=== PATIENT | male | born 1950 | race Caucasian/White ===

== ENCOUNTER 2017-10-05 06:48 | Emergency (ER) | payer MEDICARE, OTHER, SELFPAY ==
[2017-10-05 06:48] VITALS: BP 156/90; PULSE 78; RESP 16; TEMP 36.9; O2SAT 98; BMI 35.0
--- NOTE | 2017-10-05 07:07 | CT_ITS ---
STUDY: CT ABDOMEN AND PELVIS WITHOUT CONTRAST REASON FOR EXAM: Male, 67 years old. Right flank pain, diarrhea. Prior appendectomy. Hernia repair. RADIATION DOSAGE (If Supplied By Facility): CTDIvol = ( 21.80 ) mGy, DLP = ( 1253.01 ) mGycm TECHNIQUE: Transaxial images were obtained from the dome of the diaphragm to the symphysis pubis without oral contrast, and without intravenous contrast. Sagittal and coronal images were reconstructed. Individualized dose optimization techniques were used for this CT. COMPARISON: None. FINDINGS: The visualized lung bases demonstrate diffuse chronic interstitial thickening. The visualized portions of the heart are within normal limits. There is decreased attenuation of the liver consistent with steatosis. There are multiple gallstones. Normal unenhanced spleen and pancreas. Normal pancreas. Normal bilateral adrenal glands. There is mild cortical atrophy of the right kidney, consistent with chronic medical renal disease. There is a tiny left renal cortical calcification. There is bilateral perinephric stranding of the fat. Neither kidney shows calculi or evidence of hydronephrosis. Normal visualized stomach. Normal small intestine. Moderate amount of retained fecal debris seen in the colon. There is non-visualization of the appendix. Multiple small reactive mesenteric lymph nodes are seen. Normal abdominal aorta. Normal inferior vena cava. Normal retroperitoneum. There is a 1.2 cm long thin calculus seen in the urinary bladder near the right UVJ. The urinary bladder is partially empty. There is mild enlargement of the prostate gland. Multiple tiny punctate prostrate calcifications are seen. There is a small/moderate size umbilical hernia containing fat. There are multilevel moderately advanced degenerative endplate/disc spondylitic changes of the visualized thoracolumbar spine. There is lower thoracic/upper lumbar vertebral wedging. Osteopenia. CT/Abdomen/Pelvis without Cont IMPRESSION: 1. A 1.2 cm long thin calculus is seen in the bladder displaced from the right UVJ. 2. Neither kidney shows calculi or evidence of hydronephrosis. There is bilateral perinephric stranding of the fat. 3. Cholelithiasis. Borderline distended gallbladder. If indicated correlation with right upper quadrant ultrasound is recommended. 4. Mildly enlarged prostrate gland. 5. Small/moderate size umbilical hernia. 6. Moderately advanced multilevel degenerative thoracolumbar spondylosis. Electronically Signed: Stephan Buckley MD at 8:16 EDT Tel , Service support ,
[2017-10-05] MEDS: 0.9% Normal Saline 1,000 ML 150 ML IV (07:17)
--- NOTE | 2017-10-05 07:27 | ED.VISSUMM ---
- ER Visit Summary Date of Service: 10/05/17 Chief Complaint: Right flank pain History of Present Illness: The patient is a 67 M reports right upper quadrant and right lateral upper abdominal pain since 5 PM last evening. Patient states he was mowing the yard on a riding mower when the pain started. He reports some mild nausea and had frequent stools overnight, but denies actual diarrhea. He denies fever or chills. Prior abdominal surgery history includes bilateral inguinal hernias and appendectomy. Patient was started on simvastatin 2 weeks ago. Physical Examination: Blood pressure is 156/90, otherwise vitals normal. Patient sitting upright in bed no acute distress. Head neck examination is grossly unremarkable. Heart is regular rate and rhythm. Lung sounds are clear. Abdomen is soft with minimal tenderness in the right upper quadrant. There is no guarding or rebound. Active bowel sounds are noted throughout. Back examination reveals no CVA tenderness or rash. Test Results: CBC was a white count 12.7 with 78% neutrophils. Chemistry studies unremarkable. LFTs are significant for total bili of 1.30, direct bili 0.39, ALT 78, AST 93. Lipase is normal. Urinalysis is unremarkable. CT flank reveals a 1.2 cm long calculus in the bladder that has been displaced from the right UVJ. There is also evidence of cholelithiasis. Borderline distended gallbladder is noted and ultrasound is recommended. Emergency Department Course and Treatment: Patient was given IV fluids here. Case was discussed with Dr. Ruthreford. He personally reviewed the ultrasound and does not feel that the patient has acute cholecystitis. He spoke with the patient and offered admission for cholecystectomy tomorrow. Patient has a graduation democrat to go to [facility] and wishes to go home. Dr. Rutherford states that we may discharge him with some pain medication. His office will call the patient to schedule outpatient surgery. Treatment Plan: [] Disposition: Discharge Impression: 1. Cholelithiasis 2. Recently passed kidney stone This note was generated with [employer] dictation software. It may contain incorrect words, spelling, and punctuation that were not noted in review of the chart prior to signing ED Disposition - Plan for ED Patient: Chief Complaint: Abd Pain Referrals: Zonia Live MD [Primary Care Provider] -
[2017-10-05 07:38] LABS: Absolute Lymphocyte Count 1.52 X10^3/ul (0.83-4.51); Basophil# 0.01 X10^3/uL; Basophil% 0.1 % (0-1); Eosinophil# 0.05 X10^3/uL; Eosinophils% 0.4 % (0-5); Hematocrit 46.2 % (40-54); Hemoglobin 15.7 g/dl (13.0-16.5); Lymphocyte # 1.52 X10^3/ul (4.0); Lymphocyte % 11.9 % (19-41); Mean Corpuscular Hgb 30.4 pg (27.0-32.0); Mean Corpuscular Volume 89.5 fL (80-94); Mean Platelet Vol. 9.2 fl (6.2-12.0); Monocyte# 1.17 X10^3/uL; Monocyte% 9.2 % (0-10); Neutrophil # 9.95 X10^3/uL (2.7-7.7); Neutrophil % 78.2 % (47-70); Platelet Count 192 K/mm3 (150-450); RBC Distribution Width CV 13.3 % (11.6-14.6); RBC Distribution Width SD 43.4 fl (35.1-43.9); Red Blood Count 5.16 M/mm3 (4.6-6.2); White Blood Count 12.7 K/mm3 (4.4-11.0)
[2017-10-05 07:39] LABS: POSITIVE COUNT NO; POSITIVE DIFFERENTIAL NO; POSITIVE MORPHOLOGY NO
[2017-10-05 07:46] LABS: Red Blood Cells-Urine 0 SEEN /hpf (0-5)
[2017-10-05 07:49] LABS: Color, Urine Yellow (Yellow); Glucose, Dipstick 100 mg/dl (Normal); Ketone-Dipstick 5 mg/dl (Negative); Leukocyte Esterase-Dipstick 25 /ul (Negative); Nitrite-Dipstick Negative (Negative); Occult Blood-Urine 10 /ul (Negative); Protein-Dipstick 30 mg/dl (Negative); Specific Gravity, Urine 1.025 (1.002-1.030); Urine Clarity Sl. Cloudy (Clear); Urine Urobilinogen 1 mg/dl (Normal)
[2017-10-05 07:52] LABS: Urine Bilirubin Dipstick 1 mg/dL (Negative)
[2017-10-05 07:58] LABS: Bacteria 1+ /hpf (None Seen); Mucous, Urine 1+ /hpf (<or=2+); Squamous Epithelial Cells - UA 0-5 SEEN /hpf (0-5); White Blood Cells 0-5 SEEN /hpf (0-5)
[2017-10-05 08:01] LABS: AST(SGOT) 93 U/L (15-37); Alanine Aminotransfer ALT/SGPT 78 U/L (16-61); Albumin, Serum 3.8 g/dL (3.2-5.0); Alkaline Phosphatase 75 U/L (45-117); Anion Gap 9 (5-15); BUN 15 mg/dL (7-18); Bilirubin, Direct 0.39 mg/dL (0.00-0.30); Calcium,Total 8.9 mg/dL (8.5-10.1); Chloride 107 mmol/L (98-107); Creatinine, Serum 1.07 mg/dL (0.70-1.30); EST Glomerular Filtration Rate 73 mL/min (>60); Est Glom Filt Rate - Afr Amer 89 mL/min (>60); Estimated Creatinine Clearance 69.17 ml/min; Globulin 4.4 g/dL (2.2-4.2); Glucose 144 mg/dL (74-106); Lipase 112 U/L (73-393); Potassium 3.7 mmol/L (3.5-5.1); Protein, Total 8.2 g/dL (6.4-8.2); Sodium Level 139 mmol/L (136-145)
--- NOTE | 2017-10-05 08:27 | US_ITS ---
STUDY: ABDOMINAL ULTRASOUND - RIGHT UPPER QUADRANT REASON FOR VISIT: Male, 67 years old. Follow-up of CT findings. TECHNIQUE: Ultrasound evaluation of the right upper quadrant was performed with real-time and static mccloud-scale imaging. TECHNICAL QUALITY: Adequate. COMPARISON: CT of abdomen and pelvis dated October 05, 2017. FINDINGS: Liver: The liver measures 15.9 cm. There is increased echogenicity consistent with fatty infiltration. The bile ducts are within normal limits. There is hepatic color flow. The direction of portal flow is hepatopetal. There is no demonstrated mass lesion. Gallbladder: Normal distended gallbladder. The gallbladder wall measures 2.8 mm. There is a negative sonographic Heck's sign. There is no pericholecystic fluid. There is a solitary echogenic gallstone within the gallbladder. Common Bile Duct (C.B.D.): The common bile duct measures 3.5 mm. Pancreas: There is nonvisualization of the pancreas. Right Kidney: Normal size of the right kidney. The right kidney measures 11.6 x 4.2 x 5.8 cm. Normal renal cortex. The right cortex measures 1.0 cm. There is no demonstrated renal mass or cyst. There is no right hydronephrosis. US/Gallbladder IMPRESSION: 1. Cholelithiasis. 2. Hepatic steatosis. 3. Limited visualization of the left lobe of the liver. 4. Nonvisualization of the pancreas. Electronically Signed: Daxa Su MD at 10:49 EDT , Service support ,
[2017-10-05 09:14] VITALS: BP 148/89; PULSE 87; RESP 14; O2SAT 99
[2017-10-05 10:27] VITALS: BP 135/79; PULSE 60; RESP 16; O2SAT 97
--- NOTE | 2017-10-05 10:41 | ED.DEP ---
ED Disposition - Plan for ED Patient: Disposition: Home or Assisted Living Chief Complaint: Abd Pain Instructions: ED Abdominal Pain Gallstone Poss Prescriptions: Oxycodone [Oxyir] 5 mg PO Q6H PRN PRN 5 Days #14 tablet PRN Reason: Pain Referrals: Zonia Live MD [Primary Care Provider] - Lukasz Goldstein MD [STAFF PHYSICIAN] - Additional Instructions: Dr Goldstein's office will call you to arrange outpatient surgery. Return for worsening symptoms or if any concerns arise.
--- NOTE | 2017-10-05 11:00 | PCM.CONS.GEN ---
Reason for Consult Date of Consultation: 10/05/17 History of Present Illness: The patient is a 67 year old M he denies any significant past medical history other than Hypercholesterolemia. the patient ate biscuits and gravy yesterday approximately noon. At 4:56 PM he noted the onset of right upper quadrant pain radiating through to his back. This is more colicky in nature. It persisted. He presented to [facility] emergency department. He denied nausea, vomiting, fever, chills, or other difficulties. He denied jaundice. A CT scan of the abdomen and pelvis was obtained which demonstrated 2 gallstones and a questionable bladder stone but otherwise no specific abdominal arteries. His white blood cell count was mildly elevated, but his transaminases and bilirubin were normal. The patient then underwent ultrasound of the right upper quadrant, which to my review demonstrated stones but no gallbladder wall thickening. Currently, the patient is nearly pain-free. He states he has a family event with a graduation alliance party [employer] and prefer not to miss that alliance party if possible. Past Medical History Allergies No Known Allergies Allergy (Verified 10/05/17 06:52) Home Medications: Ambulatory Orders Medication Instructions Recorded Cholecalciferol (Vitamin D3) 1,000 unit PO DAILY 10/05/17 [Vitamin D3] Dietary Supplement [Scandishake] 1 tab PO DAILY 10/05/17 Hydraflexin 1 tab PO DAILY 10/05/17 Multivitamin [Multiple Vitamins] 1 each PO DAILY 10/05/17 Oxycodone [Oxyir] 5 mg PO Q6H PRN PRN 5 Days #14 10/05/17 tablet Renaitre 1 tab PO DAILY 10/05/17 Simvastatin 20 mg PO DAILY 10/05/17 True Curcumin 1 tab PO DAILY 10/05/17 Smoking Status: Never smoker Review of Systems Constitutional: Denies: Chills, Fever, Weight Change HEENT: Denies: Head Aches, Sinus Congestion, Sinus Drainage Cardiovascular: Denies: Chest Pain, Palpitations Respiratory: Denies: Cough, Shortness of breath at rest, Sputum production Gastrointestinal: Reports: Abdominal Pain. Denies: Nausea, Vomiting Genitourinary: Denies: Dysuria Musculoskeletal: Denies: Joint Pain, Joint Tenderness Skin: Denies: Rash, Wounds Neurological: Denies: Numbness, Tingling, Focal weakness Psychiatric: Denies: Anxiety, Depression, Homicidal Ideations, Suicidal Ideations Hematologic/ Lymphatic: Denies: Easy Bruising, Easy Bleeding - Physical Exam General: Alert, Oriented x3, Cooperative HEENT: Atraumatic, PERRLA, EOMI, Normocephalic Neck: Supple, No JVD, Negative Carotid Bruits Lungs: Clear to auscultation, Normal air movement Cardiovascular: Regular rate, No murmurs Abdomen: Bowel Sounds Present, Soft, Non Tender - with very minimal right upper quadrant tenderness, no Heck sign Extremities: No edema, Capillary Refill Less than 3 Seconds Skin: No rashes, No breakdown Musculoskeletal: No Tenderness to Palpation of Joints or Extremities Neurological: Cranial nerves II-XII grossly intact Psych/Mental Status: Normal Affect, Appropriate Vital Signs Temp Pulse Resp BP Pulse Ox 98.4 F 60 16 135/79 H 97 10/05/17 06:48 10/05/17 10:27 10/05/17 10:27 10/05/17 10:27 10/05/17 10:27 Oxygen Delivery Method Room Air Weight: 110.8 kg Body Mass Index (BMI) 35.0 Laboratory Tests Past 24 Hrs 10/05/17 10/05/17 10/05/17 06:54 06:54 07:40 WBC 12.7 H RBC 5.16 Hgb 15.7 Hct 46.2 MCV 89.5 MCH 30.4 MCHC 34.0 RDW 13.3 RDW Differential 43.4 Plt Count 192 MPV 9.2 Immature Gran % (Auto) 0.200 Neut % (Auto) 78.2 H Lymph % (Auto) 11.9 L [place] % (Auto) 9.2 Eos % (Auto) 0.4 Baso % (Auto) 0.1 Absolute Neuts (auto) 10.0 H Absolute Lymphs (auto) 1.52 Total Counted Not Reportable Sodium 139 Potassium 3.7 Chloride 107 Carbon Dioxide 23.0 Anion Gap 9 BUN 15 Creatinine 1.07 Estim Creat Clear Calc 69.17 Est GFR (MDRD) Af Amer 89 Est GFR (MDRD) Non-Af 73 BUN/Creatinine Ratio 14.0 Glucose 144 H Calcium 8.9 Total Bilirubin 1.30 H Direct Bilirubin 0.39 H AST 93 H ALT 78 H Alkaline Phosphatase 75 Total Protein 8.2 Albumin 3.8 Globulin 4.4 H Lipase 112 Urine Color Yellow Urine Clarity Sl. Cloudy Urine pH 6.0 Ur Specific [place] 1.025 Urine Protein 30 H Urine Glucose (UA) 100 H Urine Ketones 5 H Urine Occult Blood 10 H Urine Nitrite Negative Urine Bilirubin 1 H Urine Urobilinogen 1 H Ur Leukocyte Esterase 25 H Urine RBC 0 SEEN Urine WBC 0-5 SEEN Ur Squamous Epith Cells 0-5 SEEN Urine Bacteria 1+ Urine Mucus 1+ Assessment/Plan symptomatic cholelithiasis-pain, resolving. I'm comfortable with the patient and discharge summaries Department. If his symptoms return. She'll return to our department immediately. Otherwise, we will plan for outpatient cholecystectomy with intraoperative the next 2-3 weeks. The patient stands, the risks, benefits, complications, and possible alternatives and consents to the procedure.
--- NOTE | 2017-10-05 11:03 | CON.PCM_ITS ---
Reason for Consult Date of Consultation: 10/05/17 History of Present Illness: The patient is a 67 year old M he denies any significant past medical history other than Hypercholesterolemia. the patient ate biscuits and gravy yesterday approximately noon. At 4:56 PM he noted the onset of right upper quadrant pain radiating through to his back. This is more colicky in nature. It persisted. He presented to [facility] emergency department. He denied nausea, vomiting, fever, chills, or other difficulties. He denied jaundice. A CT scan of the abdomen and pelvis was obtained which demonstrated 2 gallstones and a questionable bladder stone but otherwise no specific abdominal arteries. His white blood cell count was mildly elevated, but his transaminases and bilirubin were normal. The patient then underwent ultrasound of the right upper quadrant, which to my review demonstrated stones but no gallbladder wall thickening. Currently, the patient is nearly pain-free. He states he has a family event with a graduation democrat [employer] and prefer not to miss that democrat if possible. Past Medical History Allergies No Known Allergies Allergy (Verified 10/05/17 06:52) Home Medications: Ambulatory Orders Medication Instructions Recorded Cholecalciferol (Vitamin D3) 1,000 unit PO DAILY 10/05/17 [Vitamin D3] Dietary Supplement [Scandishake] 1 tab PO DAILY 10/05/17 Hydraflexin 1 tab PO DAILY 10/05/17 Multivitamin [Multiple Vitamins] 1 each PO DAILY 10/05/17 Oxycodone [Oxyir] 5 mg PO Q6H PRN PRN 5 Days #14 10/05/17 tablet Renaitre 1 tab PO DAILY 10/05/17 Simvastatin 20 mg PO DAILY 10/05/17 True Curcumin 1 tab PO DAILY 10/05/17 Smoking Status: Never smoker Review of Systems Constitutional: Denies: Chills, Fever, Weight Change HEENT: Denies: Head Aches, Sinus Congestion, Sinus Drainage Cardiovascular: Denies: Chest Pain, Palpitations Respiratory: Denies: Cough, Shortness of breath at rest, Sputum production Gastrointestinal: Reports: Abdominal Pain. Denies: Nausea, Vomiting Genitourinary: Denies: Dysuria Musculoskeletal: Denies: Joint Pain, Joint Tenderness Skin: Denies: Rash, Wounds Neurological: Denies: Numbness, Tingling, Focal weakness Psychiatric: Denies: Anxiety, Depression, Homicidal Ideations, Suicidal Ideations Hematologic/ Lymphatic: Denies: Easy Bruising, Easy Bleeding - Physical Exam General: Alert, Oriented x3, Cooperative HEENT: Atraumatic, PERRLA, EOMI, Normocephalic Neck: Supple, No JVD, Negative Carotid Bruits Lungs: Clear to auscultation, Normal air movement Cardiovascular: Regular rate, No murmurs Abdomen: Bowel Sounds Present, Soft, Non Tender - with very minimal right upper quadrant tenderness, no Heck sign Extremities: No edema, Capillary Refill Less than 3 Seconds Skin: No rashes, No breakdown Musculoskeletal: No Tenderness to Palpation of Joints or Extremities Neurological: Cranial nerves II-XII grossly intact Psych/Mental Status: Normal Affect, Appropriate Vital Signs Temp Pulse Resp BP Pulse Ox 98.4 F 60 16 135/79 H 97 10/05/17 06:48 10/05/17 10:27 10/05/17 10:27 10/05/17 10:27 10/05/17 10:27 Oxygen Delivery Method Room Air Weight: 110.8 kg Body Mass Index (BMI) 35.0 Laboratory Tests Past 24 Hrs 10/05/17 10/05/17 10/05/17 06:54 06:54 07:40 WBC 12.7 H RBC 5.16 Hgb 15.7 Hct 46.2 MCV 89.5 MCH 30.4 MCHC 34.0 RDW 13.3 RDW Differential 43.4 Plt Count 192 MPV 9.2 Immature Gran % (Auto) 0.200 Neut % (Auto) 78.2 H Lymph % (Auto) 11.9 L [place] % (Auto) 9.2 Eos % (Auto) 0.4 Baso % (Auto) 0.1 Absolute Neuts (auto) 10.0 H Absolute Lymphs (auto) 1.52 Total Counted Not Reportable Sodium 139 Potassium 3.7 Chloride 107 Carbon Dioxide 23.0 Anion Gap 9 BUN 15 Creatinine 1.07 Estim Creat Clear Calc 69.17 Est GFR (MDRD) Af Amer 89 Est GFR (MDRD) Non-Af 73 BUN/Creatinine Ratio 14.0 Glucose 144 H Calcium 8.9 Total Bilirubin 1.30 H Direct Bilirubin 0.39 H AST 93 H ALT 78 H Alkaline Phosphatase 75 Total Protein 8.2 Albumin 3.8 Globulin 4.4 H Lipase 112 Urine Color Yellow Urine Clarity Sl. Cloudy Urine pH 6.0 Ur Specific [place] 1.025 Urine Protein 30 H Urine Glucose (UA) 100 H Urine Ketones 5 H Urine Occult Blood 10 H Urine Nitrite Negative Urine Bilirubin 1 H Urine Urobilinogen 1 H Ur Leukocyte Esterase 25 H Urine RBC 0 SEEN Urine WBC 0-5 SEEN Ur Squamous Epith Cells 0-5 SEEN Urine Bacteria 1+ Urine Mucus 1+ Assessment/Plan symptomatic cholelithiasis-pain, resolving. I'm comfortable with the patient and discharge summaries Department. If his symptoms return. She'll return to our department immediately. Otherwise, we will plan for outpatient cholecystectomy with intraoperative the next 2-3 weeks. The patient stands, the risks, benefits, complications, and possible alternatives and consents to the procedure.
[2017-10-05 11:13] VITALS: BP 138/79; PULSE 75; RESP 16; O2SAT 99
== END 2017-10-05 11:15 | disposition home or self-care (01) ==
PROVIDERS: Emergency Provider Emergency Medicine; Family Provider Internal Medicine; PCP Internal Medicine
DX: K80.20 Calculus of gallbladder without cholecystitis without obstruction (principal); N21.0 Calculus in bladder; E78.00 Pure hypercholesterolemia, unspecified; Z79.899 Other long term (current) drug therapy
CPT/HCPCS: 74176; 76705; 80048; 80076; 81001; 83690; 85025; 96360; 96361; 99284; J7030; A4216

== ENCOUNTER 2018-01-28 15:22 | Inpatient (IN) | payer MEDICARE, OTHER, SELFPAY ==
[2018-01-28] VITALS (15 sets, daily range): BP systolic 116–140; BP diastolic 69–89; PULSE 67–93; RESP 14–22; TEMP 36.8–37.2; O2SAT 93–98; BMI 33.7; BMI 34.0
--- NOTE | 2018-01-28 16:47 | EKG12_ITS ---
Test Reason : GEN ILLNESS Blood Pressure : / mmHG Vent. Rate : 074 BPM Atrial Rate : 074 BPM P-R Int : 160 ms QRS Dur : 118 ms QT Int : 450 ms P-R-T Axes : 047 -48 029 degrees QTc Int : 499 ms Normal sinus rhythm Incomplete right bundle branch block Left anterior fascicular block Prolonged QT Abnormal ECG Confirmed by BEN VILLAGRAN, ASHLEY ([id number]), food expeditor JUN JETT ([id number]) on 01/29/2018 1:38:19 PM Referred By: SLIME Confirmed By:ASHLEY CONTRERAS MD
--- NOTE | 2018-01-28 16:53 | NURSING ---
NO OLD EKGS
--- NOTE | 2018-01-28 17:06 | US_ITS ---
STUDY: VENOUS DOPPLER ULTRASOUND - BILATERAL LOWER EXTREMITIES REASON FOR EXAM: Male, 67 years old. Pain and swelling TECHNIQUE: Ultrasound evaluation of the deep vein system to include waters-scale imaging and compression was performed. Waters-scale imaging and Doppler sonographic evaluation, including duplex spectral analysis and qualitative color flow sonography, was performed. COMPARISON: None. FINDINGS: RIGHT LEG Common Femoral Vein: Normal compression, spontaneity and augmentation. Normal color Doppler. Common Femoral Vein/Greater Saphenous Junction: Normal compression, spontaneity and augmentation. Normal color Doppler. Superficial Femoral Proximal: Normal compression, spontaneity and augmentation. Normal color Doppler. Superficial Femoral Middle: Normal compression, spontaneity and augmentation. Normal color Doppler. Superficial Femoral Distal: Normal compression, spontaneity and augmentation. Normal color Doppler. Popliteal Vein: Normal compression, spontaneity and augmentation. Normal color Doppler. Posterior Tibial Vein: Normal compression, spontaneity and augmentation. Normal color Doppler. Peroneal Vein: Normal compression, spontaneity and augmentation. Normal color Doppler. The visualized soft tissues are unremarkable. LEFT LEG Common Femoral Vein: Normal compression, spontaneity and augmentation. Normal color Doppler. Common Femoral Vein/Greater Saphenous Junction: Normal compression, spontaneity and augmentation. Normal color Doppler. Superficial Femoral Proximal: Occlusive thrombus Superficial Femoral Middle: Occlusive thrombus Superficial Femoral Distal: Occlusive thrombus Popliteal Vein: Occlusive thrombus Posterior Tibial Vein: Occlusive thrombus Peroneal Vein: Occlusive thrombus The visualized soft tissues are unremarkable. US/Venous Duplex Imag/Alexandru Extrem IMPRESSION: No evidence of deep venous thrombosis in the right lower extremity. Occlusive thrombus in the left femoral vein, popliteal vein, posterior tibial vein and peroneal vein. N.B. : The above information has been verbally conveyed by Nawaf Liriano to Renata Salmeron MD, on 01/28/2018 21:24:11 (ET). Electronically Signed: Nawaf Liriano, at 18:54 EDT Tel , Service support ,
[2018-01-28] MEDS: 0.9% Normal Saline 1,000 ML 999 ML IV (17:19)
--- NOTE | 2018-01-28 17:20 | RAD_ITS ---
STUDY: X-RAY CHEST REASON FOR EXAM: Male, 67 years old. Cough TECHNIQUE: Frontal and lateral views COMPARISON: None. FINDINGS: The lungs are expanded. Mild interstitial prominence. Normal size heart. Normal mediastinum and axel. Normal visualized pulmonary arteries. Normal visualized aortic arch and descending thoracic aorta. Mild degenerative changes of the visualized thoracic spine. Old right rib fractures. There is no demonstrated abnormality of the visualized soft tissue structures of the upper abdomen. RAD/Chest PA and Lateral IMPRESSION: Pulmonary interstitial prominence bilaterally. Electronically Signed: Antelmo Lowe DO at 18:09 EDT Tel [phone], Service support ,
[2018-01-28 17:27] LABS: Absolute Lymphocyte Count 1.63 X10^3/ul (0.83-4.51); Absolute Neutrophil Count 5.8 X10^3/uL (2.0-7.7); Basophil# 0.02 X10^3/uL; Basophil% 0.2 % (0-1); Eosinophil# 0.13 X10^3/uL; Eosinophils% 1.6 % (0-5); Hematocrit 44.1 % (40-54); Hemoglobin 14.8 g/dl (13.0-16.5); Lymphocyte # 1.63 X10^3/ul (4.0); Lymphocyte % 19.6 % (19-41); Mean Corp Hgb Conc 33.6 g/gl (32-36); Mean Corpuscular Volume 89.3 fL (80-94); Mean Platelet Vol. 9.1 fl (6.2-12.0); Monocyte# 0.75 X10^3/uL; Neutrophil # 5.78 X10^3/uL (2.7-7.7); Neutrophil % 69.5 % (47-70); POSITIVE COUNT NO; POSITIVE DIFFERENTIAL NO; POSITIVE MORPHOLOGY NO; Platelet Count 193 K/mm3 (150-450); RBC Distribution Width SD 42.3 fl (35.1-43.9); Red Blood Count 4.94 M/mm3 (4.6-6.2); White Blood Count 8.3 K/mm3 (4.4-11.0)
[2018-01-28 17:43] LABS: ALB/GLOB Ratio 0.8 RATIO (0.9-2.4); AST(SGOT) 40 U/L (15-37); Alanine Aminotransfer ALT/SGPT 33 U/L (16-61); Albumin, Serum 3.5 g/dL (3.2-5.0); Alkaline Phosphatase 86 U/L (45-117); Anion Gap 11 (5-15); BUN 20 mg/dL (7-18); BUN/Creat Ratio 17.1 RATIO (10-20); Calcium,Total 8.8 mg/dL (8.5-10.1); Chloride 105 mmol/L (98-107); Creatinine, Serum 1.17 mg/dL (0.70-1.30); EST Glomerular Filtration Rate 66 mL/min (>60); Est Glom Filt Rate - Afr Amer 80 mL/min (>60); Estimated Creatinine Clearance 63.26 ml/min; Globulin 4.6 g/dL (2.2-4.2); Glucose 104 mg/dL (74-106); Potassium 3.7 mmol/L (3.5-5.1); Protein, Total 8.1 g/dL (6.4-8.2); Sodium Level 139 mmol/L (136-145)
[2018-01-28 17:55] LABS: D-Dimer Quantitative (DVT/PE) 6.37 FEU/ug/m (0.27-0.49)
--- NOTE | 2018-01-28 17:57 | CT_ITS ---
STUDY: CTA CHEST REASON FOR EXAM: Male, 67 years old. Elevated d-dimer. RADIATION DOSAGE (If Supplied By Facility): CTDIvol = ( 16.71 ) mGy, DLP = ( 684.33 ) mGycm TECHNIQUE: The examination was performed with the intravenous administration of 100ML ml of Isovue 370 contrast material. Post-processing of the angiographic images was performed, with multiplanar reformation and 3D reconstruction. Individualized dose optimization techniques were used for this CT. COMPARISON: None. FINDINGS: There are large central pulmonary emboli in the distal right main and distal left main pulmonary emboli which extend into the segmental and subsegmental branches of all lobes of both lungs. The heart and pericardium are within normal limits. There is no evidence of thoracic aortic aneurysm or dissection. There is no thoracic lymphadenopathy. There are scattered areas of subsegmental atelectasis noted in the lungs. There are no focal infiltrates. There are no pleural effusions. There is no pneumothorax. Images through the upper abdomen demonstrate no significant abnormality. There are old, healed right-sided rib fractures. CT/CTA Chest W/WO Contrast IMPRESSION: Large central pulmonary emboli in the distal right main and distal left main pulmonary emboli which extend into the segmental and subsegmental branches of all lobes of both lungs. N.B. : The above information has been verbally conveyed by Nawaf Liriano to Renata Salmeron on 01/28/2018 19:14:42 (ET). Electronically Signed: Nawaf Liriano, at 19:10 EDT Tel , Service support ,
[2018-01-28 18:01] LABS: Lactic Acid 1.5 mmol/L (0.4-2.0)
[2018-01-28 19:22] LABS: Partial Thromboplast Time 29.1 Seconds (24.1-36.2)
[2018-01-28] MEDS: Heparin Injection (Vial) 5,000 UNIT/ML VIAL 8000 UNIT IV (19:25)
[2018-01-28] MEDS: HEPARIN/D5w 25,000 UNITS 25,000 UNITS/250 ML IV.SOLN. 15 UNITS IV (19:25)
--- NOTE | 2018-01-28 19:25 | HP.PCM_ITS ---
Problem List (1) Bilateral pulmonary embolism Status: Acute (2) Left leg DVT Status: Acute History of Present Illness Date of Admission: 01/28/18 Chief Complaint: Diaphoresis x 1 day. 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 Patient reported that about 5 days ago he noticed that his left leg was warm. The next day he noticed that his left leg had swollen and he began to have some shortness of breath with mild exertion; and malaise. He reports left leg pain of 1 out of 10. Also he reports that about 2 weeks ago he felt dizzy. At the emergency department Doppler ultrasound was remarkable for left leg DVT; and CTA was remarkable for large central pulmonary embolism in the distal right main and distal left main pulmonary emboli with with extension into the segmental and subsegmental branches of all lobes of both lungs. Patient was started on heparin drip and forgeman helper was consulted from the emergency department. Patient reports that she has about 3 sisters who have emboli. He denies any long distance travel recently. He denies any recent surgery his last surgery was 7-8 months ago where he had his gallbladder taken out. He denies any recent immobilization. Bilateral lung PE and left leg DVT Started on heparin drip at emergency department; continued. Echocardiogram ordered. Because of patient family history of DVT and because this is an unprovoked DVT upon discharge recommend patient following up with hematology for further management/testing. Home ibuprofen as needed continued. Hyperlipidemia Simvastatin and CoQ10 continued Weight loss Management Patient recently taking medication for weight loss. Continue outpatient. DVT prophylaxis Not indicated in the setting of patient with active PE and DVT and on therapeutic anticoagulation with heparin. Past Medical History Medical History: Medical History (Last Updated 01/28/18 @ 19:57 by Barrington Estrada MD) Hyperlipidemia E78.5 Prediabetes R73.03 Allergies No Known Allergies Allergy (Verified 10/05/17 06:52) Home Medications: Ambulatory Orders Medication Instructions Recorded Simvastatin 20 mg PO QHS 10/05/17 Ibuprofen 200 mg PO PRN PRN 01/28/18 Lipozene 1,500 mg PO DAILY 01/28/18 Metaboup Plus 1 tab PO DAILY 01/28/18 Ubidecarenone/Vit E/Vit E Mix 1 each PO DAILY 01/28/18 [Co-Enzyme Q10 100 mg Softgel] Surgical History: cholecystectomy Psychiatric History: No pertinent psych hx Lives: Alone Smoking Status: Never smoker Alcohol: Occasional - *Family History Sibling History Items: - - Clots in multiple sisters requiring anti-coagulation Review of Systems Constitutional: Reports: Malaise Eyes: Denies: Blurred vision HEENT: Denies: Difficulty Hearing Cardiovascular: Reports: Chest Pain Respiratory: Reports: Cough, Shortness of Breath Gastrointestinal: Denies: Abdominal Pain, Nausea, Vomiting Genitourinary: Denies: Dysuria Musculoskeletal: Denies: Joint Pain, Joint Tenderness Skin: Denies: Rash, Wounds Neurological: Denies: Numbness, Tingling, Focal weakness Psychiatric: Denies: Anxiety, Depression, Homicidal Ideations, Suicidal Ideations Hematologic/ Lymphatic: Denies: Easy Bruising, Easy Bleeding VTE Information - Inpt Only VTE Present on Admission: Yes VTE Mechan Device Prophylaxis: None VTE Pharm Prophylaxis ordered?: No Reason prophylaxis not ordered:: Treatment Not Indicated - Started on heparin drip for DVT and PE. Patient Problems: Active and Suspected Problems (Last Updated 01/28/18 @ 19:57 by Barrington Estrada MD) Bilateral pulmonary embolism (Acute) Left leg DVT (Acute) - Physical Exam General: Alert, Oriented x3, Cooperative HEENT: Atraumatic, PERRLA, EOMI, Normocephalic Neck: Supple, No JVD, Negative Carotid Bruits Lungs: Diminished Cardiovascular: - - Diminished heart sounds likely due to body habitus. Abdomen: Bowel Sounds Present, Soft, Non Tender Extremities: No edema, Capillary Refill Less than 3 Seconds Skin: No rashes, No breakdown Musculoskeletal: - - Left leg is swollen and tender. Lymphatic: No Cervical, Supraclavicular, or Inguinal Adenopathy Neurological: Cranial nerves II-XII grossly intact Psych/Mental Status: Normal Affect Vital Signs Temp Pulse Resp BP Pulse Ox 98.2 F 75 14 140/83 H 96 01/28/18 15:24 01/28/18 17:30 01/28/18 17:30 01/28/18 17:30 01/28/18 17:30 Oxygen Delivery Method Room Air Weight: 106.594 kg Body Mass Index (BMI) 33.7 Laboratory Tests Past 24 Hrs 01/28/18 01/28/18 01/28/18 17:09 17:09 17:09 WBC 8.3 RBC 4.94 Hgb 14.8 Hct 44.1 MCV 89.3 MCH 30.0 MCHC 33.6 RDW 13.0 RDW Differential 42.3 Plt Count 193 MPV 9.1 Immature Gran % (Auto) 0.100 Neut % (Auto) 69.5 Lymph % (Auto) 19.6 [place] % (Auto) 9.0 Eos % (Auto) 1.6 Baso % (Auto) 0.2 Absolute Neuts (auto) 5.8 Absolute Lymphs (auto) 1.63 Total Counted Not Reportable APTT D-Dimer Quant (PE/DVT) 6.37 H* Sodium Potassium Chloride Carbon Dioxide Anion Gap BUN Creatinine Estim Creat Clear Calc Est GFR (MDRD) Af Amer Est GFR (MDRD) Non-Af BUN/Creatinine Ratio Glucose Lactic Acid 1.5 Calcium Total Bilirubin AST ALT Alkaline Phosphatase Troponin I B-Natriuretic Peptide Total Protein Albumin Globulin Albumin/Globulin Ratio 01/28/18 01/28/1818 17:09 17:09 17:09 WBC RBC Hgb Hct MCV MCH MCHC RDW RDW Differential Plt Count MPV Immature Gran % (Auto) Neut % (Auto) Lymph % (Auto) [place] % (Auto) Eos % (Auto) Baso % (Auto) Absolute Neuts (auto) Absolute Lymphs (auto) Total Counted APTT Pending D-Dimer Quant (PE/DVT) Sodium 139 Potassium 3.7 Chloride 105 Carbon Dioxide 23.0 Anion Gap 11 BUN 20 H Creatinine 1.17 Estim Creat Clear Calc 63.26 Est GFR (MDRD) Af Amer 80 Est GFR (MDRD) Non-Af 66 BUN/Creatinine Ratio 17.1 Glucose 104 Lactic Acid Calcium 8.8 Total Bilirubin 0.90 AST 40 H ALT 33 Alkaline Phosphatase 86 Troponin I 0.499 H B-Natriuretic Peptide Pending Total Protein 8.1 Albumin 3.5 Globulin 4.6 H Albumin/Globulin Ratio 0.8 L Assessment/Plan All Active Problems (Last Updated 01/28/18 @ 19:57 by Barrington Estrada MD) Bilateral pulmonary embolism (Acute) Left leg DVT (Acute) The patient is a 67 year old M with a significant history of prediabetes and hyperlipidemia who presented with diaphoresis, left leg swelling, cough and shortness of breath; also with family dependence review confirms interstitial prominence of blood clots was found to have bilateral PE and left leg DVT. Bilateral lung PE and left leg DVT D-dimer elevated and troponin elevated. No need to trend troponin in the setting of clear cause of elevation; and on heparin. Patient is hemodynamically stable. Chest x-ray independently reviewed confirms interstitial prominence CTA chest independently reviewed a confirms multiple PE. Doppler ultrasound of left leg independently reviewed confirms DVT Admitted to the intensive care unit Started on heparin drip at emergency department; continued. Echocardiogram ordered. Because of patient family history of DVT and because this is an unprovoked DVT upon discharge recommend patient follow up with hematology for further management/testing. Home ibuprofen as needed continued. CBC and BMP in a.m. Hyperlipidemia Simvastatin and CoQ10 continued Weight loss Management Patient recently taking medication for weight loss. Continue outpatient. Elevated liver enzymes Mild Likely due to outpatient medication taking for weight loss. Patient to follow up outpatient. DVT prophylaxis Not indicated in the setting of patient with active PE and DVT and on therapeutic anticoagulation with heparin. Code Visit Inpatient E&M: 38466 Init Hosp L3
[2018-01-28 19:39] LABS: BNP,B-Type NATRIURETIC PEPTIDE 109.5 pg/mL (0-100)
--- NOTE | 2018-01-28 20:40 | ECHOCS_ITS ---
Reason For Study: Emboli Procedure This was a 2D Doppler, Color Flow transthoracic echocardiogram. The study was technically difficult. Contrast injection was performed. Exam performed portable in ICU/CCU. Left Ventricle Mild concentric left ventricular hypertrophy. Based upon the 2D echocardiographic and contrast enhanced images obtained there appears to be grossly normal left ventricular size, wall motion, and systolic function. The estimated ejection fraction is 55 %. Unable to assess diastolic dysfunction. Right Ventricle Normal RV size. Normal systolic function. Atria Normal left atrium. Normal right atrium. No doppler evidence for ASD. Mitral Valve There is no mitral annular calcification. Normal mitral valve. Trivial mitral valve insufficiency. Tricuspid Valve Trivial tricuspid valve insufficiency. Unable to estimate RV systolic pressure/pulmonary artery pressure due to technically difficult study. Aortic Valve Trisinus/trileaflet aortic valve. Mild focal aortic valve calcification. Pulmonic Valve The pulmonic valve is not well visualized. Great Vessels Normal sized aortic root. Pericardium/Pleural No pericardial effusion. Medication Diluted definity 3ml given slow IV push to enhance endocardial definition. MMode/2D Measurements & Calculations LVIDd: 4.7 cm IVSd: 1.5 cm Ao root diam: 3.3 cm LVIDs: 3.3 cm LVPWd: 1.4 cm LA dimension: 3.7 cm FS: 29.6 % LAV(MOD-sp4): 58.7 ml LA A4 area: 19.8 cm2 RA A4 area: 15.5 cm2 Time Measurements MV dec time: 0.27 sec Doppler Measurements & Calculations MV E max tay: 60.7 cm/sec Lat Peak E' Tay: 7.3 cm/sec Med Peak E' Tay: 8.3 cm/sec MV A max tay: 87.8 cm/sec E/E' lat: 8.3 E/E' med: 7.3 MV E/A: 0.69 MV V2 max: 94.4 cm/sec MV P1/2t max tay: 73.2 cm/sec Ao V2 max: 136.8 cm/sec MV max P.6 mmHg MV P1/2t: 100.7 msec Ao max P.5 mmHg MV V2 mean: 53.2 cm/sec MV dec slope: 212.9 cm/sec2 Ao V2 mean: 95.5 cm/sec MV mean P.3 mmHg MVA(P1/2t): 2.2 cm2 Ao mean P.1 mmHg MV V2 VTI: 24.9 cm Ao V2 VTI: 25.9 cm LV V1 max: 123.2 cm/sec PA V2 max: 95.3 cm/sec LV V1 max P.1 mmHg LV V1 mean P.1 mmHg LV V1 mean: 79.8 cm/sec LV V1 VTI: 25.2 cm Interpretation Summary The study was technically difficult. Contrast injection was performed. Based upon the 2D echocardiographic and contrast enhanced images obtained there appears to be grossly normal left ventricular size, wall motion, and systolic function. The estimated ejection fraction is 55 %. Mild concentric left ventricular hypertrophy. Trivial mitral valve insufficiency. Trivial tricuspid valve insufficiency. Mild focal aortic valve calcification. Unable to estimate RV systolic pressure/pulmonary artery pressure due to technically difficult study. Unable to assess diastolic dysfunction. Ordering Physician: Barrington Estrada Referring Physician: Zonia Live Performed By: Marlon Birmingham RCS
[2018-01-28 22:15] LABS: Allen Test POS; Base Excess -1 mmol/L (-2 to +2); Bicarbonate 22.6 mmol/L (22-26); Blood Gas Specimen Type ART; O2 Delivery Device Room Air; PO2 57 mmHG (75-100); SITE R Radial; SO2 91 % (95-99); Time Given 2215; Total Carbon Dioxide 23 mmol/L; pCO2 30.8 mmHg (35-45); pH 7.47 (7.35-7.45)
[2018-01-28] MEDS: Atorvastatin Calcium 10 MG Tablet PO (22:35)
[2018-01-29] VITALS (22 sets, daily range): BP systolic 110–134; BP diastolic 63–87; PULSE 57–87; RESP 12–20; TEMP 36.1–37.1; O2SAT 92–98
--- NOTE | 2018-01-29 01:13 | ED.VISSUMM ---
- ER Visit Summary Date of Service: 01/29/18 Chief Complaint: Do not feel well History of Present Illness: The patient is a 67 M who presents for not feeling well for the last week. Patient states this past weekend he noted his left lower extremity became edematous below the knee. He has had dyspnea on exertion and a cough for 2 weeks. 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 He denies fever, chest pain, nausea or vomiting, diarrhea, back pain or other complaints. No history of DVT or PE. He did start taking Lipozene and metaboUP PLUS for weight loss that he ordered from a commercial. He has history of hypercholesterolemia and cholecystectomy. Does not use tobacco. No recent travel or surgeries.. Physical Examination: Vital signs: afebrile, hemodynamically stable, 83% on room air General: well nourished, well developed, in no distress Skin: warm, dry, no rash, no pallor HEENT: normocephalic and atraumatic; PERRL, EOMI, moist mucous membranes Cardiovascular: regular rate and rhythm without murmurs, left lower extremity edema and tenderness below the knee, increased warmth, 2+ pulses all distal extremities Respiratory: No increased work of breathing, lungs are clear to auscultation bilaterally, no rales, rhonchi or wheezing Abdominal: Abdomen is soft, nontender with normoactive bowel sounds, no guarding or rebound, no masses MSK: Moves all extremities, no deformities, normal strength Neuro: Awake and alert, oriented ?4. No facial droop, sensation and motor function intact and symmetric Test Results: Abnormal Lab Results 01/28/18 01/28/18 01/28/18 17:09 17:09 17:09 WBC 8.3 RBC 4.94 Hgb 14.8 Hct 44.1 MCV 89.3 MCH 30.0 MCHC 33.6 RDW 13.0 RDW Differential 42.3 Plt Count 193 MPV 9.1 Immature Gran % (Auto) 0.100 Neut % (Auto) 69.5 Lymph % (Auto) 19.6 [place] % (Auto) 9.0 Eos % (Auto) 1.6 Baso % (Auto) 0.2 Absolute Neuts (auto) 5.8 Absolute Lymphs (auto) 1.63 Total Counted Not Reportable APTT D-Dimer Quant (PE/DVT) 6.37 H* Specimen Type Sample Site pH Bicarbonate Actual POC Total CO2 Base Excess O2 Saturation ABG pCO2 ABG pO2 Ken Test O2 Delivery Device Blood Gas Notified Whom Blood Gas Notified Time Sodium Potassium Chloride Carbon Dioxide Anion Gap BUN Creatinine Estim Creat Clear Calc Est GFR (MDRD) Af Amer Est GFR (MDRD) Non-Af BUN/Creatinine Ratio Glucose Lactic Acid 1.5 Calcium Total Bilirubin AST ALT Alkaline Phosphatase Troponin I B-Natriuretic Peptide Total Protein Albumin Globulin Albumin/Globulin Ratio 01/28/18 01/28/18 01/28/18 17:09 17:09 17:09 WBC RBC Hgb Hct MCV MCH MCHC RDW RDW Differential Plt Count MPV Immature Gran % (Auto) Neut % (Auto) Lymph % (Auto) [place] % (Auto) Eos % (Auto) Baso % (Auto) Absolute Neuts (auto) Absolute Lymphs (auto) Total Counted APTT 29.1 D-Dimer Quant (PE/DVT) Specimen Type Sample Site pH Bicarbonate Actual POC Total CO2 Base Excess O2 Saturation ABG pCO2 ABG pO2 Ken Test O2 Delivery Device Blood Gas Notified Whom Blood Gas Notified Time Sodium 139 Potassium 3.7 Chloride 105 Carbon Dioxide 23.0 Anion Gap 11 BUN 20 H Creatinine 1.17 Estim Creat Clear Calc 63.26 Est GFR (MDRD) Af Amer 80 Est GFR (MDRD) Non-Af 66 BUN/Creatinine Ratio 17.1 Glucose 104 Lactic Acid Calcium 8.8 Total Bilirubin 0.90 AST 40 H ALT 33 Alkaline Phosphatase 86 Troponin I 0.499 H B-Natriuretic Peptide 109.5 H Total Protein 8.1 Albumin 3.5 Globulin 4.6 H Albumin/Globulin Ratio 0.8 L Clinical Impression(s) from Imaging Studies Venous Duplex 01/28/18 17:06 IMPRESSION: No evidence of deep venous thrombosis in the right lower extremity. Occlusive thrombus in the left femoral vein, popliteal vein, posterior tibial vein and peroneal vein. N.B. : The above information has been verbally conveyed by Nawaf Liriano to Renata Salmeron MD, on 01/28/2018 21:24:11 (ET). Electronically Signed: Nawaf Liriano, at 18:54 EDT Tel , Service support , Chest X-Ray 01/28/18 17:20 IMPRESSION: Pulmonary interstitial prominence bilaterally. Electronically Signed: Antelmo Lowe, DO at 18:09 EDT Tel [phone], Service support , Chest CTA 01/28/18 17:57 IMPRESSION: Large central pulmonary emboli in the distal right main and distal left main pulmonary emboli which extend into the segmental and subsegmental branches of all lobes of both lungs. N.B. : The above information has been verbally conveyed by Nawaf Liriano to Renata Salmeron on 01/28/2018 19:14:42 (ET). Electronically Signed: Nawaf Liriano, at 19:10 EDT Tel , Service support , Emergency Department Course and Treatment: Patient presents with vague complaints, including shortness of breath on exertion, left lower extremity swelling and sweating with daily tasks. Patient is 93% on room air and given his complaint of shortness of breath that is new, PE is on the differential. Because of the lower extremity edema and tenderness/warmth, DVT is concerning. Ultrasound was performed of the left lower extremity did show a DVT from the proximal femoral vein and distal. Chest x-ray showed no infiltrates or effusions. EKG showed a sinus rhythm with borderline right bundle branch block. No ischemic changes. Labs were remarkable for ADD dimer of 6.7. This was obtained prior to results of the ultrasound. Troponin was elevated at 0.49. CTA of the chest was obtained given the elevated d-dimer and patient's presentation that makes PE high on the differential. It was positive for large PE burden. There was no sign of right heart strain. patient was started on a heparin drip and discussed with Dr. Valles for admission to the ICU. Patient was then discussed with the hospitalist and admitted. Critical Care Time: 45 minutes independent of any separately billable procedure time for initial evaluation, coordination of care, reevaluations, interpretation of EKG, imaging, lab work, discussion with home therapy teacher and hospitalist, documentation. Treatment Plan: [] Disposition: [] Impression: Bilateral main pulmonary artery pulmonary emboli, multilobar pulmonary emboli, left lower extremity DVT This note was generated with [employer] dictation software. It may contain incorrect words, spelling, and punctuation that were not noted in review of the chart prior to signing ED Disposition - Plan for ED Patient: Chief Complaint: General Illness
--- NOTE | 2018-01-29 01:19 | ED.DCSUM_ITS ---
- ER Visit Summary Date of Service: 01/29/18 Chief Complaint: Do not feel well History of Present Illness: The patient is a 67 M who presents for not feeling well for the last week. Patient states this past weekend he noted his left lower extremity became edematous below the knee. He has had dyspnea on exertion and a cough for 2 weeks. 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 He denies fever, chest pain, nausea or vomiting, diarrhea, back pain or other complaints. No history of DVT or PE. He did start taking Lipozene and metaboUP PLUS for weight loss that he ordered from a commercial. He has history of hypercholesterolemia and cholecystectomy. Does not use tobacco. No recent travel or surgeries.. Physical Examination: Vital signs: afebrile, hemodynamically stable, 83% on room air General: well nourished, well developed, in no distress Skin: warm, dry, no rash, no pallor HEENT: normocephalic and atraumatic; PERRL, EOMI, moist mucous membranes Cardiovascular: regular rate and rhythm without murmurs, left lower extremity edema and tenderness below the knee, increased warmth, 2+ pulses all distal extremities Respiratory: No increased work of breathing, lungs are clear to auscultation bilaterally, no rales, rhonchi or wheezing Abdominal: Abdomen is soft, nontender with normoactive bowel sounds, no guarding or rebound, no masses MSK: Moves all extremities, no deformities, normal strength Neuro: Awake and alert, oriented ?4. No facial droop, sensation and motor function intact and symmetric Test Results: Abnormal Lab Results 01/28/18 01/28/18 01/28/18 17:09 17:09 17:09 WBC 8.3 RBC 4.94 Hgb 14.8 Hct 44.1 MCV 89.3 MCH 30.0 MCHC 33.6 RDW 13.0 RDW Differential 42.3 Plt Count 193 MPV 9.1 Immature Gran % (Auto) 0.100 Neut % (Auto) 69.5 Lymph % (Auto) 19.6 [place] % (Auto) 9.0 Eos % (Auto) 1.6 Baso % (Auto) 0.2 Absolute Neuts (auto) 5.8 Absolute Lymphs (auto) 1.63 Total Counted Not Reportable APTT D-Dimer Quant (PE/DVT) 6.37 H* Specimen Type Sample Site pH Bicarbonate Actual POC Total CO2 Base Excess O2 Saturation ABG pCO2 ABG pO2 Ken Test O2 Delivery Device Blood Gas Notified Whom Blood Gas Notified Time Sodium Potassium Chloride Carbon Dioxide Anion Gap BUN Creatinine Estim Creat Clear Calc Est GFR (MDRD) Af Amer Est GFR (MDRD) Non-Af BUN/Creatinine Ratio Glucose Lactic Acid 1.5 Calcium Total Bilirubin AST ALT Alkaline Phosphatase Troponin I B-Natriuretic Peptide Total Protein Albumin Globulin Albumin/Globulin Ratio 01/28/18 01/28/18 01/28/18 17:09 17:09 17:09 WBC RBC Hgb Hct MCV MCH MCHC RDW RDW Differential Plt Count MPV Immature Gran % (Auto) Neut % (Auto) Lymph % (Auto) [place] % (Auto) Eos % (Auto) Baso % (Auto) Absolute Neuts (auto) Absolute Lymphs (auto) Total Counted APTT 29.1 D-Dimer Quant (PE/DVT) Specimen Type Sample Site pH Bicarbonate Actual POC Total CO2 Base Excess O2 Saturation ABG pCO2 ABG pO2 Ken Test O2 Delivery Device Blood Gas Notified Whom Blood Gas Notified Time Sodium 139 Potassium 3.7 Chloride 105 Carbon Dioxide 23.0 Anion Gap 11 BUN 20 H Creatinine 1.17 Estim Creat Clear Calc 63.26 Est GFR (MDRD) Af Amer 80 Est GFR (MDRD) Non-Af 66 BUN/Creatinine Ratio 17.1 Glucose 104 Lactic Acid Calcium 8.8 Total Bilirubin 0.90 AST 40 H ALT 33 Alkaline Phosphatase 86 Troponin I 0.499 H B-Natriuretic Peptide 109.5 H Total Protein 8.1 Albumin 3.5 Globulin 4.6 H Albumin/Globulin Ratio 0.8 L Clinical Impression(s) from Imaging Studies Venous Duplex 01/28/18 17:06 IMPRESSION: No evidence of deep venous thrombosis in the right lower extremity. Occlusive thrombus in the left femoral vein, popliteal vein, posterior tibial vein and peroneal vein. N.B. : The above information has been verbally conveyed by Nawaf Liriano to Renata Salmeron MD, on 01/28/2018 21:24:11 (ET). Electronically Signed: Nawaf Liriano, at 18:54 EDT Tel , Service support , Chest X-Ray 01/28/18 17:20 IMPRESSION: Pulmonary interstitial prominence bilaterally. Electronically Signed: Antelmo Lowe, DO at 18:09 EDT Tel [phone], Service support , Chest CTA 01/28/18 17:57 IMPRESSION: Large central pulmonary emboli in the distal right main and distal left main pulmonary emboli which extend into the segmental and subsegmental branches of all lobes of both lungs. N.B. : The above information has been verbally conveyed by Nawaf Liriano to Renata Salmeron on 01/28/2018 19:14:42 (ET). Electronically Signed: Nawaf Liriano, at 19:10 EDT Tel , Service support , Emergency Department Course and Treatment: Patient presents with vague complaints, including shortness of breath on exertion, left lower extremity swelling and sweating with daily tasks. Patient is 93% on room air and given his complaint of shortness of breath that is new, PE is on the differential. Because of the lower extremity edema and tenderness/warmth, DVT is concerning. Ultrasound was performed of the left lower extremity did show a DVT from the proximal femoral vein and distal. Chest x-ray showed no infiltrates or effusions. EKG showed a sinus rhythm with borderline right bundle branch block. No ischemic changes. Labs were remarkable for ADD dimer of 6.7. This was obtained prior to results of the ultrasound. Troponin was elevated at 0.49. CTA of the chest was obtained given the elevated d-dimer and patient's presentation that makes PE high on the differential. It was positive for large PE burden. There was no sign of right heart strain. patient was started on a heparin drip and discussed with Dr. Valles for admission to the ICU. Patient was then discussed with the hospitalist and admitted. Critical Care Time: 45 minutes independent of any separately billable procedure time for initial evaluation, coordination of care, reevaluations, interpretation of EKG, imaging, lab work, discussion with restaurant host/hostess and hospitalist, documentation. Treatment Plan: [] Disposition: [] Impression: Bilateral main pulmonary artery pulmonary emboli, multilobar pulmonary emboli, left lower extremity DVT This note was generated with [employer] dictation software. It may contain incorrect words, spelling, and punctuation that were not noted in review of the chart prior to signing ED Disposition - Plan for ED Patient: Chief Complaint: General Illness
[2018-01-29 02:26] LABS: Partial Thromboplast Time 124.9 Seconds (24.1-36.2)
[2018-01-29] MEDS: 0.9% NaCl Peripheral Flush Adult/Peds IV (04:39)
[2018-01-29 04:50] LABS: Hematocrit 39.4 % (40-54); Hemoglobin 13.4 g/dl (13.0-16.5); Mean Corpuscular Hgb 30.4 pg (27.0-32.0); Mean Corpuscular Volume 89.3 fL (80-94); Mean Platelet Vol. 9.3 fl (6.2-12.0); Platelet Count 199 K/mm3 (150-450); RBC Distribution Width CV 12.9 % (11.6-14.6); RBC Distribution Width SD 41.9 fl (35.1-43.9); Red Blood Count 4.41 M/mm3 (4.6-6.2); White Blood Count 7.4 K/mm3 (4.4-11.0)
[2018-01-29 04:58] LABS: Anion Gap 9 (5-15); BUN 16 mg/dL (7-18); BUN/Creat Ratio 16.4 RATIO (10-20); Calcium,Total 8.4 mg/dL (8.5-10.1); Chloride 106 mmol/L (98-107); Creatinine, Serum 0.98 mg/dL (0.70-1.30); EST Glomerular Filtration Rate 81 mL/min (>60); Est Glom Filt Rate - Afr Amer 98 mL/min (>60); Estimated Creatinine Clearance 75.52 ml/min; Glucose 126 mg/dL (74-106); Potassium 3.7 mmol/L (3.5-5.1); Sodium Level 141 mmol/L (136-145)
[2018-01-29 05:02] LABS: Scan Indicated on CBC? Y/N NO
--- NOTE | 2018-01-29 07:32 | PCM.CON.CC ---
Problem List (1) Hyperlipidemia Status: Chronic Qualifiers: Hyperlipidemia type: pure hypercholesterolemia Qualified Code(s): E78.00 - Pure hypercholesterolemia, unspecified; E78.0 - Pure hypercholesterolemia (2) Obesity (BMI 30.0-34.9) Status: Chronic (3) Bilateral pulmonary embolism Status: Acute (4) Left leg DVT Status: Acute Qualifiers: Affected thrombotic vein of extremity: femoral Chronicity: acute Qualified Code(s): I82.412 - Acute embolism and thrombosis of left femoral vein Reason for Consult Date of Consultation: 01/29/18 Reason for Consultation: Pulmonary embolism History of Present Illness: The patient is a 67 year old M, with past medical history listed below, who presented to [facility] on 01/28/2018 secondary to diaphoresis and shortness of breath with exertion. 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 Patient started to have significant diaphoresis and shortness of breath, so came to the emergency room for evaluation. Patient had noted some left lower extremity swelling 5 days previous, but did not have it evaluated. Patient denies any recent trauma or travel. Patient did have surgery 7-8 months ago, but denies any recent immobilization. Patient does have family members with history of blood clot. While in the emergency room, patient had a Doppler of the left lower extremity showing a left leg extensive DVT. CTA of the chest showed a large central PE with both right and left components. Patient was placed on a heparin drip and transferred to the intensive care unit for further monitoring. Since being in the intensive care unit, patient states he subjectively improved compared to previous. Patient is denying any pain or shortness of breath at rest. Patient was placed on 2 L nasal cannula overnight secondary to decreased SPO2 on ABG. Patient denies any bleeding complications such as epistaxis, hemoptysis, melena or hematochezia. Patient denies any history of smoking, but does drink occasionally. Patient has multiple sisters on anticoagulation secondary to blood clots, but is never been diagnosed with a blood clot himself. Patient denies any difficulties following cholecystectomy in the past. Review of systems otherwise negative ?10 systems. Past Medical History Past Medical History (Chronic Problems): Chronic Problems (Last Updated 01/28/18 @ 19:57 by Barrington Estrada MD) Hyperlipidemia (Chronic) Obesity (BMI 30.0-34.9) (Chronic) Medical History: Medical History (Last Updated 01/28/18 @ 19:57 by Barrington Estrada MD) Hyperlipidemia E78.5 Prediabetes R73.03 Allergies No Known Allergies Allergy (Verified 01/28/18 20:36) Home Medications: Ambulatory Orders Medication Instructions Recorded Simvastatin 20 mg PO QHS 10/05/17 Ibuprofen 200 mg PO PRN PRN 01/28/18 Lipozene 3,000 mg PO DAILY 01/28/18 Metaboup Plus 2 tab PO DAILY 01/28/18 Ubidecarenone/Vit E/Vit E Mix 1 each PO DAILY 01/28/18 [Co-Enzyme Q10 100 mg Softgel] Surgical History: cholecystectomy Psychiatric History: No pertinent psych hx Lives: Alone Smoking Status: Never smoker Alcohol: Occasional - *Family History Sibling History Items: - - Clots in multiple sisters requiring anti-coagulation Review of Systems Comment: See HPI Patient Problems: Active and Suspected Problems (Last Updated 01/28/18 @ 19:57 by Barrington Estrada MD) Bilateral pulmonary embolism (Acute) Left leg DVT (Acute) Objective: CT scan of the chest was personally reviewed. This did not show significant emphysematous or fibrotic changes. Extensive PE was noted throughout both bronchial trees. No RV dilation noted on imaging. - Physical Exam General: Alert, Oriented x3, Cooperative, No apparent distress, Well developed, Well nourished, - - Speaking in full sentences HEENT: Atraumatic, PERRLA, EOMI, Normocephalic, - - No scleral icterus or injection noted. Oral: Moist Mucosa, No Gingival or Mucosal Lesions/ Ulcerations Neck: Supple, No JVD, No Nodes, Trachea Midline Lungs: Clear to auscultation, Normal air movement, No rhonchi, No wheeze, No rales, - - Symmetric expansion. No dullness to percussion. Cardiovascular: Regular rate, Regular Rhythm, Normal S1, Normal S2, No murmurs, No rub noted, No Gallop Abdomen: Bowel Sounds Present, Soft, Non Tender, Non-Distended, Obese Extremities: No clubbing, No cyanosis, Capillary Refill Less than 3 Seconds, Edema - Left lower extremity Skin: No rashes, No breakdown Musculoskeletal: No Tenderness to Palpation of Joints or Extremities Lymphatic: No Cervical, Supraclavicular, or Inguinal Adenopathy Neurological: Cranial nerves II-XII grossly intact, Neuro grossly intact, Motor Exam 5/5 strength throughout Psych/Mental Status: Alert and oriented to time, place, person, mood and affect Vital Signs Temp Pulse Resp BP Pulse Ox 36.7 C 62 17 124/81 H 97 01/29/18 04:00 01/29/18 06:00 01/29/18 06:00 01/29/18 06:00 01/29/18 06:00 Oxygen Flow Rate (L/min) 2 Oxygen Delivery Method Nasal Cannula Weight: 107.6 kg Body Mass Index (BMI) 34.0 Intake and Output for Last 24 Hours 01/27/18 01/28/18 01/29/18 23:59 23:59 23:59 Intake Total 433 / 433 172.4 / 172.4 Balance 433 / 433 172.4 / 172.4 Laboratory Tests Past 24 Hrs 01/28/18 01/29/18 01/29/18 22:12 01:30 04:30 WBC 7.4 RBC 4.41 L Hgb 13.4 Hct 39.4 L MCV 89.3 MCH 30.4 MCHC 34.0 RDW 12.9 RDW Differential 41.9 Plt Count 199 MPV 9.3 APTT 124.9 H* Specimen Type ART Sample Site R Radial pH 7.47 H Bicarbonate Actual 22.6 POC Total CO2 23 Base Excess -1 O2 Saturation 91 L ABG pCO2 30.8 L ABG pO2 57 L Ken Test POS O2 Delivery Device Room Air Blood Gas Notified Whom [facility] Blood Gas Notified Time 2215 Sodium Potassium Chloride Carbon Dioxide Anion Gap BUN Creatinine Estim Creat Clear Calc Est GFR (MDRD) Af Amer Est GFR (MDRD) Non-Af BUN/Creatinine Ratio Glucose Calcium 01/29/18 04:30 WBC RBC Hgb Hct MCV MCH MCHC RDW RDW Differential Plt Count MPV APTT Specimen Type Sample Site pH Bicarbonate Actual POC Total CO2 Base Excess O2 Saturation ABG pCO2 ABG pO2 Ken Test O2 Delivery Device Blood Gas Notified Whom Blood Gas Notified Time Sodium 141 Potassium 3.7 Chloride 106 Carbon Dioxide 26.0 Anion Gap 9 BUN 16 Creatinine 0.98 Estim Creat Clear Calc 75.52 Est GFR (MDRD) Af Amer 98 Est GFR (MDRD) Non-Af 81 BUN/Creatinine Ratio 16.4 Glucose 126 H Calcium 8.4 L Clinical Impression(s) from Imaging Studies Venous Duplex 01/28/18 17:06 IMPRESSION: No evidence of deep venous thrombosis in the right lower extremity. Occlusive thrombus in the left femoral vein, popliteal vein, posterior tibial vein and peroneal vein. N.B. : The above information has been verbally conveyed by Nawaf Liriano to Renata Salmeron MD, on 01/28/2018 21:24:11 (ET). Electronically Signed: Nawaf Liriano, at 18:54 EDT Tel , Service support , Chest X-Ray 01/28/18 17:20 IMPRESSION: Pulmonary interstitial prominence bilaterally. Electronically Signed: Antelmo Lowe DO at 18:09 EDT Tel [phone], Service support , Chest CTA 01/28/18 17:57 IMPRESSION: Large central pulmonary emboli in the distal right main and distal left main pulmonary emboli which extend into the segmental and subsegmental branches of all lobes of both lungs. N.B. : The above information has been verbally conveyed by Nawaf Liriano to Renata Salmeron on 01/28/2018 19:14:42 (ET). Electronically Signed: Nawaf Liriano, at 19:10 EDT Tel , Service support , Assessment/Plan Active and Suspected Problems (Last Updated 01/28/18 @ 19:57 by Barrington Estrada MD) Bilateral pulmonary embolism (Acute) Left leg DVT (Acute) RECOMMENDATIONS: 1. Continue heparin drip for another 24 hours 2. Await echocardiogram 3. Walking oximetry prior to discharge 4. Likely transition to 10 A inhibitor tomorrow 5. Wean oxygen as tolerated 6. Okay to transfer to [facility] from my perspective IMPRESSIONS: 1. 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 Patient appears to be tolerating extensive clot burden well. Would keep on heparin drip for another 24 hours in case intervention is necessary. Patient will need a walking oximetry prior to discharge. Echocardiogram has been ordered for evaluation of RV strain. Patient will need at least 6 months of anticoagulation, but may require lifelong anticoagulation. Will attempt to obtain further information on sister's history of clot to see if there is known genetic predisposition. 2. Obesity/hyperlipidemia Complicates care, management, recovery and prognosis. Encourage weight loss. Okay to continue statin from my perspective. Code Visit Inpatient E&M: 98460 Init Hosp L2
--- NOTE | 2018-01-29 07:38 | CON.PCM_ITS ---
Problem List (1) Hyperlipidemia Status: Chronic Qualifiers: Hyperlipidemia type: pure hypercholesterolemia Qualified Code(s): E78.00 - Pure hypercholesterolemia, unspecified; E78.0 - Pure hypercholesterolemia (2) Obesity (BMI 30.0-34.9) Status: Chronic (3) Bilateral pulmonary embolism Status: Acute (4) Left leg DVT Status: Acute Qualifiers: Affected thrombotic vein of extremity: femoral Chronicity: acute Qualified Code(s): I82.412 - Acute embolism and thrombosis of left femoral vein Reason for Consult Date of Consultation: 01/29/18 Reason for Consultation: Pulmonary embolism History of Present Illness: The patient is a 67 year old M, with past medical history listed below, who presented to [facility] on 01/28/2018 secondary to diaphoresis and shortness of breath with exertion. 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 Patient started to have significant diaphoresis and shortness of breath, so came to the emergency room for evaluation. Patient had noted some left lower extremity swelling 5 days previous, but did not have it evaluated. Patient denies any recent trauma or travel. Patient did have surgery 7-8 months ago, but denies any recent immobilization. Patient does have family members with history of blood clot. While in the emergency room, patient had a Doppler of the left lower extremity showing a left leg extensive DVT. CTA of the chest showed a large central PE with both right and left components. Patient was placed on a heparin drip and transferred to the intensive care unit for further monitoring. Since being in the intensive care unit, patient states he subjectively improved compared to previous. Patient is denying any pain or shortness of breath at rest. Patient was placed on 2 L nasal cannula overnight secondary to decreased SPO2 on ABG. Patient denies any bleeding complications such as epistaxis, hemoptysis, melena or hematochezia. Patient denies any history of smoking, but does drink occasionally. Patient has multiple sisters on anticoagulation secondary to blood clots, but is never been diagnosed with a blood clot himself. Patient denies any difficulties following cholecystectomy in the past. Review of systems otherwise negative ? 10 systems. Past Medical History Past Medical History (Chronic Problems): Chronic Problems (Last Updated 01/28/18 @ 19:57 by Barrington Estrada MD) Hyperlipidemia (Chronic) Obesity (BMI 30.0-34.9) (Chronic) Medical History: Medical History (Last Updated 01/28/18 @ 19:57 by Barrington Estrada MD) Hyperlipidemia E78.5 Prediabetes R73.03 Allergies No Known Allergies Allergy (Verified 01/28/18 20:36) Home Medications: Ambulatory Orders Medication Instructions Recorded Simvastatin 20 mg PO QHS 10/05/17 Ibuprofen 200 mg PO PRN PRN 01/28/18 Lipozene 3,000 mg PO DAILY 01/28/18 Metaboup Plus 2 tab PO DAILY 01/28/18 Ubidecarenone/Vit E/Vit E Mix 1 each PO DAILY 01/28/18 [Co-Enzyme Q10 100 mg Softgel] Surgical History: cholecystectomy Psychiatric History: No pertinent psych hx Lives: Alone Smoking Status: Never smoker Alcohol: Occasional - *Family History Sibling History Items: - - Clots in multiple sisters requiring anti-coagulation Review of Systems Comment: See HPI Patient Problems: Active and Suspected Problems (Last Updated 01/28/18 @ 19:57 by Barrington Estrada MD) Bilateral pulmonary embolism (Acute) Left leg DVT (Acute) Objective: CT scan of the chest was personally reviewed. This did not show significant emphysematous or fibrotic changes. Extensive PE was noted throughout both bronchial trees. No RV dilation noted on imaging. - Physical Exam General: Alert, Oriented x3, Cooperative, No apparent distress, Well developed, Well nourished, - - Speaking in full sentences HEENT: Atraumatic, PERRLA, EOMI, Normocephalic, - - No scleral icterus or injection noted. Oral: Moist Mucosa, No Gingival or Mucosal Lesions/ Ulcerations Neck: Supple, No JVD, No Nodes, Trachea Midline Lungs: Clear to auscultation, Normal air movement, No rhonchi, No wheeze, No rales, - - Symmetric expansion. No dullness to percussion. Cardiovascular: Regular rate, Regular Rhythm, Normal S1, Normal S2, No murmurs, No rub noted, No Gallop Abdomen: Bowel Sounds Present, Soft, Non Tender, Non-Distended, Obese Extremities: No clubbing, No cyanosis, Capillary Refill Less than 3 Seconds, Edema - Left lower extremity Skin: No rashes, No breakdown Musculoskeletal: No Tenderness to Palpation of Joints or Extremities Lymphatic: No Cervical, Supraclavicular, or Inguinal Adenopathy Neurological: Cranial nerves II-XII grossly intact, Neuro grossly intact, Motor Exam 5/5 strength throughout Psych/Mental Status: Alert and oriented to time, place, person, mood and affect Vital Signs Temp Pulse Resp BP Pulse Ox 36.7 C 62 17 124/81 H 97 01/29/18 04:00 01/29/18 06:00 01/29/18 06:00 01/29/18 06:00 01/29/18 06:00 Oxygen Flow Rate (L/min) 2 Oxygen Delivery Method Nasal Cannula Weight: 107.6 kg Body Mass Index (BMI) 34.0 Intake and Output for Last 24 Hours 01/27/18 01/28/18 01/29/18 23:59 23:59 23:59 Intake Total 433 / 433 172.4 / 172.4 Balance 433 / 433 172.4 / 172.4 Laboratory Tests Past 24 Hrs 01/28/18 01/29/18 01/29/18 22:12 01:30 04:30 WBC 7.4 RBC 4.41 L Hgb 13.4 Hct 39.4 L MCV 89.3 MCH 30.4 MCHC 34.0 RDW 12.9 RDW Differential 41.9 Plt Count 199 MPV 9.3 APTT 124.9 H* Specimen Type ART Sample Site R Radial pH 7.47 H Bicarbonate Actual 22.6 POC Total CO2 23 Base Excess -1 O2 Saturation 91 L ABG pCO2 30.8 L ABG pO2 57 L Ken Test POS O2 Delivery Device Room Air Blood Gas Notified Whom [facility] Blood Gas Notified Time 2215 Sodium Potassium Chloride Carbon Dioxide Anion Gap BUN Creatinine Estim Creat Clear Calc Est GFR (MDRD) Af Amer Est GFR (MDRD) Non-Af BUN/Creatinine Ratio Glucose Calcium 01/29/18 04:30 WBC RBC Hgb Hct MCV MCH MCHC RDW RDW Differential Plt Count MPV APTT Specimen Type Sample Site pH Bicarbonate Actual POC Total CO2 Base Excess O2 Saturation ABG pCO2 ABG pO2 Ken Test O2 Delivery Device Blood Gas Notified Whom Blood Gas Notified Time Sodium 141 Potassium 3.7 Chloride 106 Carbon Dioxide 26.0 Anion Gap 9 BUN 16 Creatinine 0.98 Estim Creat Clear Calc 75.52 Est GFR (MDRD) Af Amer 98 Est GFR (MDRD) Non-Af 81 BUN/Creatinine Ratio 16.4 Glucose 126 H Calcium 8.4 L Clinical Impression(s) from Imaging Studies Venous Duplex 01/28/18 17:06 IMPRESSION: No evidence of deep venous thrombosis in the right lower extremity. Occlusive thrombus in the left femoral vein, popliteal vein, posterior tibial vein and peroneal vein. N.B. : The above information has been verbally conveyed by Nawaf Liriano to Renata Salmeron MD, on 01/28/2018 21:24:11 (ET). Electronically Signed: Nawaf Liriano, at 18:54 EDT Tel , Service support , Chest X-Ray 01/28/18 17:20 IMPRESSION: Pulmonary interstitial prominence bilaterally. Electronically Signed: Antelmo Lowe DO at 18:09 EDT Tel [phone], Service support , Chest CTA 01/28/18 17:57 IMPRESSION: Large central pulmonary emboli in the distal right main and distal left main pulmonary emboli which extend into the segmental and subsegmental branches of all lobes of both lungs. N.B. : The above information has been verbally conveyed by Nawaf Liriano to Renata Salmeron on 01/28/2018 19:14:42 (ET). Electronically Signed: Nawaf Liriano, at 19:10 EDT Tel , Service support , Assessment/Plan Active and Suspected Problems (Last Updated 01/28/18 @ 19:57 by Barrington Estrada MD) Bilateral pulmonary embolism (Acute) Left leg DVT (Acute) RECOMMENDATIONS: 1. Continue heparin drip for another 24 hours 2. Await echocardiogram 3. Walking oximetry prior to discharge 4. Likely transition to 10 A inhibitor tomorrow 5. Wean oxygen as tolerated 6. Okay to transfer to [facility] from my perspective IMPRESSIONS: 1. 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 Patient appears to be tolerating extensive clot burden well. Would keep on heparin drip for another 24 hours in case intervention is necessary. Patient will need a walking oximetry prior to discharge. Echocardiogram has been ordered for evaluation of RV strain. Patient will need at least 6 months of anticoagulation, but may require lifelong anticoagulation. Will attempt to obtain further information on sister's history of clot to see if there is known genetic predisposition. 2. Obesity/hyperlipidemia Complicates care, management, recovery and prognosis. Encourage weight loss. Okay to continue statin from my perspective. Code Visit Inpatient E&M: 93397 Init Hosp L2
[2018-01-29 09:11] LABS: Partial Thromboplast Time 62.5 Seconds (24.1-36.2)
[2018-01-29 13:04] LABS: Partial Thromboplast Time 40.3 Seconds (24.1-36.2)
--- NOTE | 2018-01-29 13:33 | CASEMGMT ---
See assessment. SW spoke w/pt, three of pt's sisters present. Pt reports supportive family. Pt fully independent at home, no history of HHC or SNF. Pt does not anticipate any homegoing needs. Pt does not have prescription coverage. SW let pt know will let him know the cost of his medications to make sure he can afford them. Physician and CM aware that pt has no prescription coverage. Physician states he may put pt on Lovenox and Coumadin. SW spoke w/pt and family again, let them know that physician may put pt on Lovenox and Coumadin to try to keep the cost down. Pt is not certain about giving himself shots. Pt's sister asked about getting blood checked on Coumadin, SW explained that yes, pt would need to get his INR checked. SW explained we can see about the cost of the meds, and let him know. SW also encouraged pt to sign up for a part D with Medicare in February, so he has coverage for the next year. SW explained also that with some of the pill medications, the manufacturers offer assist, but it would depend on pt's income. Pt states understanding, did not offer any information in regard to his income however. SW gave CM information regarding this, she will follow up w/pt regarding medications and cost. SOY Anthony, PAPER PROCESSING MACHINE HELPER
[2018-01-29] MEDS: Heparin Injection (Vial) 5,000 UNIT/ML VIAL IV (13:56)
[2018-01-29] MEDS: HEPARIN/D5w 25,000 UNITS 25,000 UNITS/250 ML IV.SOLN. 14 UNITS IV (16:21)
--- NOTE | 2018-01-29 19:03 | PN_ITS ---
Patient Problems: Active and Suspected Problems (Last Updated 01/28/18 @ 19:57 by Barrington Estrada MD) Bilateral pulmonary embolism (Acute) Left leg DVT (Acute) Subjective: Patient was seen and examined today in ICU, I talked with critical care about his medical care, pulmonary medicine felt that the patient could be transferred out to a monitored floor today and he was transferred to PCU. It was noted today that the patient did not have any prescription coverage for medications because he did not set this up, patient states he said he did not know he needed to set it up. Discussions were carried out with him and his siblings who are in the room concerning what anticoagulant to use, initially we talked about Eliquis and then Coumadin. I contacted [employer] and got a number that the patient could call to see if he would be eligible to receive medicine from the drug market gardener, he does have paperwork that he received from them today and he will fill it out. 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 I went over the fact that the Eliquis will cost approximately $500 a month and the patient is aware of this. - Physical Exam General: Alert, Oriented x3, Cooperative, No apparent distress, Well developed, Well nourished HEENT: Atraumatic, PERRLA, EOMI, Normocephalic Oral: Moist Mucosa Neck: Supple, Trachea Midline, Thyroid Normal Size and Texture Lungs: Clear to auscultation, Normal air movement, No rhonchi, No wheeze, No rales Cardiovascular: Regular rate, Regular Rhythm, Normal S1, Normal S2, No murmurs, No Ectopic Activity Abdomen: Bowel Sounds Present, Soft, Non Tender, Non-Distended, No hernias noted Extremities: No clubbing, No cyanosis, Capillary Refill Less than 3 Seconds Skin: No rashes, No breakdown Musculoskeletal: No Tenderness to Palpation of Joints or Extremities Neurological: Cranial nerves II-XII grossly intact, Neuro grossly intact, Sensory exam intact to light touch and pain, Coordination normal Psych/Mental Status: Normal Affect, Appropriate, Alert and oriented to time, place, person, mood and affect Vital Signs Temp Pulse Resp BP Pulse Ox 98.1 F 87 16 127/78 H 95 01/29/18 18:00 01/29/18 18:00 01/29/18 18:00 01/29/18 18:00 01/29/18 18:00 Oxygen Flow Rate (L/min) 2 Oxygen Delivery Method Room Air Weight: 107.6 kg Body Mass Index (BMI) 34.0 Intake and Output for Last 24 Hours 01/27/18 01/28/18 01/29/18 23:59 23:59 23:59 Intake Total 433 / 433 859.4 / 859.4 Balance 433 / 433 859.4 / 859.4 Laboratory Tests Past 24 Hrs 01/28/18 01/29/18 01/29/18 22:12 01:30 04:30 WBC 7.4 RBC 4.41 L Hgb 13.4 Hct 39.4 L MCV 89.3 MCH 30.4 MCHC 34.0 RDW 12.9 RDW Differential 41.9 Plt Count 199 MPV 9.3 APTT 124.9 H* Specimen Type ART Sample Site R Radial pH 7.47 H Bicarbonate Actual 22.6 POC Total CO2 23 Base Excess -1 O2 Saturation 91 L ABG pCO2 30.8 L ABG pO2 57 L Ken Test POS O2 Delivery Device Room Air Blood Gas Notified Whom [facility] Blood Gas Notified Time 2215 Sodium Potassium Chloride Carbon Dioxide Anion Gap BUN Creatinine Estim Creat Clear Calc Est GFR (MDRD) Af Amer Est GFR (MDRD) Non-Af BUN/Creatinine Ratio Glucose Calcium 01/29/18 01/29/18 01/29/18 04:30 08:40 12:35 WBC RBC Hgb Hct MCV MCH MCHC RDW RDW Differential Plt Count MPV APTT 62.5 H 40.3 H Specimen Type Sample Site pH Bicarbonate Actual POC Total CO2 Base Excess O2 Saturation ABG pCO2 ABG pO2 Ken Test O2 Delivery Device Blood Gas Notified Whom Blood Gas Notified Time Sodium 141 Potassium 3.7 Chloride 106 Carbon Dioxide 26.0 Anion Gap 9 BUN 16 Creatinine 0.98 Estim Creat Clear Calc 75.52 Est GFR (MDRD) Af Amer 98 Est GFR (MDRD) Non-Af 81 BUN/Creatinine Ratio 16.4 Glucose 126 H Calcium 8.4 L Medical Necessity - Tobacco Use Smoking Status: Never smoker Assessment/Plan All Active Problems (Last Updated 01/28/18 @ 19:57 by Barrington Estrada MD) Bilateral pulmonary embolism (Acute) Left leg DVT (Acute) #1 extensive bilateral pulmonary emboli-continue treatment at the present time with IV heparin, transitioned to Eliquis tomorrow if the patient is stable, he will be discharged tomorrow if he remains medically stable. #2 extensive DVT left leg-exact etiology of this is unknown, patient has family members that have history of DVT, it is unknown whether the patient could have a coagulopathy. This will have to be investigated as an outpatient and he will need close follow-up. #3 hyperlipidemia-continue Lipitor Code Visit Inpatient E&M: 99413 Subs Hosp L2
[2018-01-29 20:13] LABS: Partial Thromboplast Time 58.1 Seconds (24.1-36.2)
[2018-01-29] MEDS: Atorvastatin Calcium 10 MG Tablet PO (21:17)
[2018-01-30] VITALS (8 sets, daily range): BP systolic 115–128; BP diastolic 67–72; PULSE 61–83; RESP 16; TEMP 36.6–37.1; O2SAT 92–95
--- NOTE | 2018-01-30 09:42 | PCM.PROGNOTE ---
Patient Problems: Active and Suspected Problems (Last Updated 01/28/18 @ 19:57 by Barrington Estrada MD) Bilateral pulmonary embolism (Acute) Left leg DVT (Acute) Subjective: Patient transferred out of the intensive care unit yesterday. Patient feels subjectively back to his baseline. Patient denies any bleeding complications such as hemoptysis, melena, hematuria or hematochezia. Patient has only walk to the bathroom, but denies any dyspnea on exertion. There was some concern over drug coverage, but patient states I will just buy it. - Physical Exam General: Alert, Oriented x3, Cooperative, No apparent distress, Well developed, Well nourished, - - Speaking in full sentences. HEENT: Atraumatic, PERRLA, EOMI, Normocephalic, - - No scleral icterus or injection noted. Oral: Moist Mucosa, No Gingival or Mucosal Lesions/ Ulcerations Neck: Supple, No JVD, No Nodes, Trachea Midline Lungs: Clear to auscultation, Normal air movement, No rhonchi, No wheeze, No rales, - - Symmetric expansion. No dullness to percussion. Cardiovascular: Regular rate, Regular Rhythm, Normal S1, Normal S2, No murmurs, No rub noted, No Gallop Abdomen: Bowel Sounds Present, Soft, Non Tender, Non-Distended, Obese Extremities: No clubbing, No cyanosis, Capillary Refill Less than 3 Seconds, Edema - Improved Skin: No rashes, No breakdown Musculoskeletal: No Tenderness to Palpation of Joints or Extremities Lymphatic: No Cervical, Supraclavicular, or Inguinal Adenopathy Neurological: Cranial nerves II-XII grossly intact, Neuro grossly intact, Motor Exam 5/5 strength throughout Psych/Mental Status: Alert and oriented to time, place, person, mood and affect Vital Signs Temp Pulse Resp BP Pulse Ox 36.6 C 78 16 128/72 H 95 01/30/18 09:15 01/30/18 09:15 01/30/18 09:15 01/30/18 09:15 01/30/18 09:15 Oxygen Flow Rate (L/min) 2 Oxygen Delivery Method Room Air Weight: 109.7 kg Body Mass Index (BMI) 34.0 Intake and Output for Last 24 Hours 01/28/18 01/29/18 01/30/18 23:59 23:59 23:59 Intake Total 433 / 433 1613.0 / 1613.0 79.2 / 79.2 Balance 433 / 433 1613.0 / 1613.0 79.2 / 79.2 Laboratory Tests Past 24 Hrs 01/29/18 01/29/18 01/30/18 12:35 19:54 05:00 APTT 40.3 H 58.1 H 57.0 H Echocardiogram shows EF of 55%, but unable to visualize pulmonary artery pressures. Medical Necessity - Tobacco Use Smoking Status: Never smoker Assessment/Plan All Active Problems (Last Updated 01/28/18 @ 19:57 by Barrington Estrada MD) Bilateral pulmonary embolism (Acute) Left leg DVT (Acute) RECOMMENDATIONS: 1. Obtain walking oximetry 2. Okay to transition to 10 A inhibitor 3. Follow-up in our office in 4-6 weeks 4. Okay to discharge if no supplemental oxygen required with ambulation IMPRESSIONS: 1. 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 Patient appears to be tolerating extensive clot burden well. Patient's oxygenation has improved. Will obtain a walking oximetry. Patient is able to tolerate room air, can likely be discharged from a pulmonary perspective. Patient should follow-up in our office in 4-6 weeks. Patient understands that anticoagulation will be required for at least 6 months. 2. Obesity/hyperlipidemia Complicates care, management, recovery and prognosis. Encourage weight loss. Okay to continue statin from my perspective. Code Visit Inpatient E&M: 32549 Subs Hosp L2
[2018-01-30] MEDS: APIXABAN 5 MG TABLET 10 MG PO (10:50)
--- NOTE | 2018-01-30 11:05 | DCINST_ITS ---
- Discharge Diagnoses Current Active Problems: Current Active and Chronic Problems (Last Updated 01/28/18 @ 19:57 by Barrington Estrada MD) Bilateral pulmonary embolism (Acute) Left leg DVT (Acute) Hyperlipidemia (Chronic) Obesity (BMI 30.0-34.9) (Chronic) You will use the following diet at home:: Regular Your food should be the consistency of: Regular Your liquids should be the consistency of: Regular/Thin Discharge Activity: Return to Normal Activity Return to work on:: 02/13/18 Weight Bearing Status: Full weight bearing Additional Instructions: TAKE ONLY TYLENOL FOR PAIN-NO ASPIRIN OR iBUPROFEN, NO ALLEVE Allergies/Adverse Reactions: Allergies No Known Allergies Allergy (Verified 01/28/18 20:36) Medications to take at Discharge Simvastatin 20 mg PO QHS 10/05/17 Acetaminophen [Tylenol Tablet] 650 mg PO Q6H PRN PRN tablet 01/30/18 Apixaban [Eliquis] 5 mg PO BID #60 tab 01/30/18 Apixaban [Eliquis] 10 mg PO BID #13 tab 01/30/18 The following prescriptions were given: Apixaban [Eliquis] 10 mg PO BID #13 tab Apixaban [Eliquis] 5 mg PO BID #60 tab Primary Care Physician: Zonia Live MD [Primary Care Provider] - Please follow up with your Primary Care Physician in: IN ONE WEEK Test Results: Test results from this visit will be discussed in further detail at your follow- up appointment, if applicable.
--- NOTE | 2018-01-30 11:56 | CASEMGMT ---
Dr. Parker aware that pt has [employer] secondary but we do not have cards. Per Dr. Parker, pt states does not have Rx coverage through MMO either and he does not want to go home on coumadin, he would prefer Eliquis even though he is aware of the cost. Eliquis e-scribed to [facility] per pt request and call placed at this time. Per tech, the 1st script for 13 tabs will be $109.46 and the monthly dose will then be $501.00. Pt is aware and states he can pay for this per Dr. Parker. Pt given Eliquis free 30 day trial card to use for the 1st full month of Eliquis by Dr. Parker and pt voiced understanding. Skylar ALLAN CM
--- NOTE | 2018-02-01 11:22 | PCM.DC.SUM ---
Discharge Date and Diagnosis Date of Admission: 01/28/18 Date of Discharge: 01/30/18 - Primary Discharge Diagnosis #1 pulmonary embolism #2 extensive DVT left leg #3 hyperlipidemia - Secondary Discharge Diagnosis Chronic Problems (Last Updated 01/28/18 @ 19:57 by Barrington Estrada MD) Hyperlipidemia (Chronic) Obesity (BMI 30.0-34.9) (Chronic) Hospital Course and Treatment Procedures: 2-D Echocardiogram Summary of Care Provided: The patient is a 67 year old M who was seen in the emergency room at [facility] with chief complaint of diaphoresis while doing activity at work. Patient also complained about left leg warmness over the past 5 days. He also noticed that his left leg has been swollen. Patient also finally complained of some shortness of breath with mild exertion and malaise. Doppler ultrasound was done in the emergency room of the left leg and it showed an extensive DVT, CTA of the chest was performed which was remarkable for large central pulmonary embolus in the distal right main and distal left main pulmonary artery with extension into the segmental and subsegmental branches of all lobes of both lungs. Patient was not hypoxic, his vital signs appeared stable. Patient was admitted to ICU, he was seen by critical care and initially was maintained on a heparin drip., He was transferred the next day to PCU and echocardiogram was obtained which showed no evidence of LV strain, discussions were carried out with the patient as to which anticoagulant to place the patient on, it was found that the patient had no prescription coverage and initially it appeared that the patient would choose to go on Coumadin but he changed his mind and agreed to take Eliquis. On 01/30/18, patient was seen and examined felt to be in stable condition for discharge home. Discharge Activity: Return to Normal Activity Return to work on:: 02/13/18 Weight Bearing Status: Full weight bearing Home Medications: Medications to take at Discharge Simvastatin 20 mg PO QHS 10/05/17 Acetaminophen [Tylenol Tablet] 650 mg PO Q6H PRN PRN tablet 01/30/18 Apixaban [Eliquis] 5 mg PO BID #60 tab 01/30/18 Apixaban [Eliquis] 10 mg PO BID #13 tab 01/30/18 Following Prescrptions Were Given to Patient: Apixaban [Eliquis] 10 mg PO BID #13 tab Apixaban [Eliquis] 5 mg PO BID #60 tab Primary Care Physician: Zonia Live MD [Primary Care Provider] - Please follow up with your Primary Care Physician in: IN ONE WEEK Please Follow Up With: Zonia Live MD Disposition: Home Minutes spent on discharge:: 33 Patient Condition:: Stable Medical Necessity - Tobacco Use Smoking Status: Never smoker Meaningful Use Info Meaningful Use Diagnoses (Choose all that apply): VTE - VTE Anticoag overlap given w/in hospital stay or rx'd at dc?: No Pt receive overlap for 5 days?: No Reason overlap not ordered, prescribed, or given for 5 days: Treatment Not Indicated - Patient on Eliquis Code Visit Inpatient E&M: 48549 Disch Hosp
== END 2018-01-30 12:45 | disposition home or self-care (01) | DRG 176 ==
LOC: ED 16:57 → ICU 19:53 → PCU 01-30 08:19
PROVIDERS: Admitting Provider Hospitalist; Emergency Provider Emergency Medicine; Family Provider Internal Medicine; PCP Internal Medicine; Visit Provider Internal Medicine
DX: I26.92 Saddle embolus of pulmonary artery without acute cor pulmonale (principal); I82.412 Acute embolism and thrombosis of left femoral vein; I82.432 Acute embolism and thrombosis of left popliteal vein; I82.442 Acute embolism and thrombosis of left tibial vein; I82.4Z2 Acute embolism and thrombosis of unspecified deep veins of left distal lower extremity; R73.03 Prediabetes; E78.5 Hyperlipidemia, unspecified; E66.9 Obesity, unspecified; Z68.34 Body mass index [BMI] 34.0-34.9, adult
CPT/HCPCS: 36415; 36600; 71046; 71275; 80048; 80053; 82803; 83605; 83880; 84484; 85025; 85027; 85379; 85730; 87040; 93005; 93306; 93970; 97162; 97166; 99251; 99283; J7030; Q9957; Q9967; A4216; C8929; G0463

== ENCOUNTER 2021-11-30 12:27 | Inpatient (IN) | payer MEDICARE, SELFPAY ==
[2021-11-30] VITALS (16 sets, daily range): BP systolic 134–187; BP diastolic 67–95; PULSE 61–83; RESP 16–23; TEMP 36.1–36.6; O2SAT 91–95; BMI 37.3; BMI 36.5
--- NOTE | 2021-11-30 12:28 | EKG12_ITS ---
Test Reason : STROKE Blood Pressure : / mmHG Vent. Rate : 080 BPM Atrial Rate : 080 BPM P-R Int : 144 ms QRS Dur : 138 ms QT Int : 446 ms P-R-T Axes : 042 -28 018 degrees QTc Int : 514 ms Normal sinus rhythm Right bundle branch block Abnormal ECG Confirmed by BEN VILLAGRAN, ASHLEY ([id number]), video news editor SAUNDRA BASS ([id number]) on 12/04/2021 9:13:12 AM Referred By: CARISSA Confirmed By:ASHLEY CONTRERAS MD
--- NOTE | 2021-11-30 12:28 | CT_ITS ---
STUDY: CT HEAD STROKE PROTOCOL W/O CONTRAST INJECTION REASON FOR EXAM: Male, 71 years old. Neuro deficit, acute, stroke suspected RADIATION DOSAGE (If Supplied By Facility): CTDIvol = ( 44.99 ) mGy, DLP = ( 745 .49) mGycm TECHNIQUE: Transaxial CT imaging of the brain was performed without administration of intravenous contrast material. Individualized dose optimization techniques were used for this CT. COMPARISON: No relevant priors. FINDINGS: Normal soft tissue structures. Normal calvarium. Normal size ventricles and extra-axial spaces for the patient''s age. The patient. All Normal basal ganglia and thalami. Normal brainstem. 3 cm hypodensity in the peripheral lateral aspect of the left cerebellar hemisphere. No mass effect. Decreased attenuation in the superior aspect of the left cerebellar hemispheres suggestive of ischemia. There is no intracranial hemorrhage. There are no findings of an acute ischemic infarction. Normal visualized paranasal sinuses. CT/STROKE Brain/Head without Cont IMPRESSION: There is evidence of ischemia of the superior aspect of the left cerebellar hemisphere. 1.3 cm x 2.3 cm in the peripheral aspect of the left cerebellar hemisphere. Correlation with the MRI or enhanced CT is recommended. Focal encephalomalacia in the left frontal lobe N.B. : The above Results were Read Back by Rodrigo Romero MD to Sky Rios and understanding confirmed on 11/30/2021 12:46:28 (ET). Electronically Signed: Rodrigo Romero MD at 12:47 EDT ,
--- NOTE | 2021-11-30 12:28 | CT_ITS ---
STUDY: CTA HEAD AND NECK WITH CONTRAST REASON FOR EXAM: Male, 71 years old. Neuro deficit, acute, stroke suspected RADIATION DOSAGE (If Supplied By Facility): CTDIvol = ( 22.65 ) mGy, DLP = ( 783.89 ) mGycm TECHNIQUE: CT angiography was performed with a multi-detector CT scanner. Data acquisition was obtained from the skull base through the vertex following intravenous administration of IV 100mL Isovue-370. MIP images were reconstructed from the axial data set. Post-processing of the angiographic images was performed, with multiplanar reformation and 3D reconstruction. Individualized dose optimization techniques were used for this CT. COMPARISON: No relevant priors. FINDINGS: Normal bilateral petrous carotid arteries. There is calcified plaque formation of the right cavernous carotid artery, without a cross-sectional luminal stenosis. There is calcified plaque formation of the left cavernous carotid artery, without a cross-sectional luminal stenosis. Normal right A1 segments of the anterior cerebral artery. Normal left A1 segments of the anterior cerebral artery. Normal intact anterior communicating artery (ACOM). Normal bilateral A2 segments of the anterior cerebral arteries. Normal right M1 and M2 segments of the middle cerebral arteries, with a normal M1 bifurcation. Normal left M1 and M2 segments of the middle cerebral arteries, with a normal M1 bifurcation. Normal right posterior communicating artery (PCOM). Normal left posterior communicating artery (PCOM). Normal bilateral vertebral arteries. Normal basilar artery with a normal basilar bifurcation. The visualized bilateral superior cerebellar (SCA) arteries are normal. Normal bilateral P1, P2 and visualized P3 segments of the posterior cerebral arteries. There is no demonstrated aneurysm of the [place]. There is no demonstrated abnormality of the visualized brain. AORTIC ARCH: Normal visualized aortic arch. Normal origins of the brachiocephalic, left common carotid, and left subclavian arteries. RIGHT CAROTID ARTERIES: Normal right common carotid artery (CCA). Normal right common carotid bulb. Normal origin of the right internal carotid (ICA) artery without a hemodynamically significant stenosis. Normal visualized cervical portion of the right internal carotid artery. Normal origin of the right external carotid artery (ECA). LEFT CAROTID ARTERIES: Normal left common carotid artery (CCA). Normal left common carotid bulb. There is mild atherosclerotic plaque formation of the origin of the left internal carotid artery with less than 50% cross sectional diameter stenosis. Normal visualized cervical portion of the left internal carotid artery. Normal origin of the left external carotid artery (ECA). VERTEBRAL ARTERIES: Normal bilateral vertebral arteries. CT/STROKE CTA Head AND Neck W/Con IMPRESSION: Mild plaque at the origin of the left internal carotid artery. N.B. : The above Results were Read Back by Rodrigo Romero MD to Sky Rios and understanding confirmed on 11/30/2021 12:47:46 (ET). Electronically Signed: Rodrigo Romero MD at 12:48 EDT ,
--- NOTE | 2021-11-30 12:48 | ED.VIS.STROK ---
HPI History of Present Illness Chief Complaint: Neuro S/Sx Informant: patient and EMS Onset/Context/Timing Onset: Today Narrative Narrative: Awake stroke symptoms concerning troubles with speech at 7 AM. Last normal at midnight. No history of strokes. History of hypertension, diabetes, hyperlipidemia. Patient history of PE and DVT 2 years ago anticoagulated for 7 months per patient. Patient with ataxia and lip droop per EMS, prehospital stroke team was initiated. Patient denies any stroke history. Blood glucose in the 200s. Prior similar symptoms: No PFSH PFSH Medical History (Updated 12/01/21 @ 09:[address] Sky Rios DO) Diabetes DVT (deep venous thrombosis) Hyperlipidemia Hypertension Migraines Non-smoker Prediabetes Pulmonary embolism Home Medications simvastatin 20 mg tablet 20 mg PO QHS cholesterol lowering 10/05/17 [History Last Taken 11/29/21] amlodipine 5 mg tablet 5 mg PO DAILY blood pressure 11/30/21 [History Last Taken 11/29/21] escitalopram oxalate 10 mg tablet 10 mg PO DAILY . 11/30/21 [History Last Taken 11/29/21] metformin 500 mg tablet 500 tab PO DAILY blood sugar 11/30/21 [History Last Taken 11/29/21] Allergy/AdvReac Type Severity Reaction Status Date / Time No Known Allergies Allergy Verified 11/30/21 12:42 Family History (Updated 11/30/21 @ 14:[address] Mike Phelps MD) Other CVA (cerebral vascular accident) Diabetes Surgical History (Updated 11/30/21 @ 14:30 by Aleah Benito) History of appendectomy History of cholecystectomy Social History Smoking Status: Never smoker ROS ROS ED Constitutional Constitutional ED: Denies chills, fever(s) or sweats Eyes Eyes: Denies change in vision ENT ENT ED: Denies dysphagia or sore throat Cardiovascular Cardiovascular: Denies chest pain, leg edema, palpitations or racing heartbeat Respiratory/Chest Respiratory/Chest: Denies cough, dyspnea or dyspnea on exertion Gastrointestinal Gastrointestinal: Denies abdominal pain, diarrhea, nausea or vomiting Genitourinary Genitourinary ED: Denies dysuria, hematuria or urinary frequency Musculoskeletal Musculoskeletal: Denies back pain, extremity pain or neck pain Integumentary Denies rash or wounds Neurologic Neurologic: Reports weakness and other Details: Abnormal speech ; Denies headache(s) or paresthesias EXAM Physical Exam Const Vital Signs: 11/30/21 12:28 11/30/21 12:33 11/30/21 12:42 Temperature 96.9 F L Temperature Source Temporal Pulse Rate 69 83 Respiratory Rate 16 19 H Blood Pressure 147/82 H 187/95 H Blood Pressure Mean 103 125 Pulse Ox 95 95 Oxygen Delivery Method Room Air Room Air Room Air 11/30/21 12:43 11/30/21 12:48 11/30/21 12:58 Temperature Temperature Source Pulse Rate 76 71 Respiratory Rate 23 H 21 H Blood Pressure 187/95 H 158/90 H 158/90 H Blood Pressure Mean 125 112 112 Pulse Ox 95 93 Oxygen Delivery Method Room Air Room Air Positive well nourished and well developed General Appearance ED: well developed and NAD HEENT Reports moist mucous membranes normocephalic and atraumatic Nose: other Other Details: Slight lip droop on the left. Eyes PERRL, EOMs intact bilaterally and conjunctivae normal General Eye ED: Yes normal appearance of both eyes Neck no lymphadenopathy and supple General: Negative for tenderness Chest Wall Chest: Negative for tenderness Resp normal respiratory effort and normal air movement Effort and Inspection: symmetric chest movement; Negative for respiratory distress Cardio regular rate, regular rhythm and no murmurs Peripheral Pulses: pulses 2+ throughout GI normal to inspection, nondistended, normoactive bowel sounds and non-tender Palpation: Negative for guarding or rebound tenderness present Back/Spine no CVA tenderness and no thoracic nor lumbar tenderness Extremity normal to inspection General Extremety ED: Negative for edema or tenderness General Extremity: Negative for edema Neuro oriented x3 Neuro Narrative: Decreased sensation left lower leg compared to the right. 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 mild weakness to left hip flexor compared to the right. Ataxia left upper extremity compared to the right. Sensorium / Orientation: awake and alert Skin no rashes or lesions noted and no wounds STROKE Vital Signs/Narrative: Vital Signs Temp Pulse Resp BP Pulse Ox O2 Del Method 11/30/21 12:58 71 21 H 158/90 H 93 Room Air 11/30/21 12:48 158/90 H 11/30/21 12:43 76 23 H 187/95 H 95 Room Air 11/30/21 12:42 95 Room Air 11/30/21 12:33 96.9 F L 83 19 H 187/95 H 95 Room Air 11/30/21 12:28 69 16 147/82 H Room Air Inital Vital Signs reviewed: Yes NIHSS Initial: 1a Level of Consciousness: 0 1b LOC Questions (Score 2 if aphasic/stupor): 0 1c LOC Commands (Only score 1st attempt): 0 2 Best Gaze (If aphasic, use reflexive mvmts.): 0 3 Visual: 0 4 Facial Palsy: 1 5 Motor Arm Right (UN = amputation/fusion): 0 5 Motor Arm Left: 0 6 Motor Leg Right: 0 6 Motor Leg Left: 0 7 Limb ataxia (Only + if out of proportion): 1 8 Sensory (Aphasia/stupor=0 or 1, coma=2): 1 9 Best Language: 0 10 Dysarthria (mute, coma=2, intubated=UN): 0 11 Extinction and Inattention (only scored if +): 0 Total Score: 3 2nd Follow up: 1a Level of Consciousness: 0 1b LOC Questions (Score 2 if aphasic/stupor): 0 1c LOC Commands (Only score 1st attempt): 0 2 Best Gaze (If aphasic, use reflexive mvmts.): 0 3 Visual: 0 4 Facial Palsy: 1 5 Motor Arm Right (UN = amputation/fusion): 0 5 Motor Arm Left: 0 6 Motor Leg Right: 0 6 Motor Leg Left: 0 7 Limb ataxia (Only + if out of proportion): 1 8 Sensory (Aphasia/stupor=0 or 1, coma=2): 0 9 Best Language: 0 10 Dysarthria (mute, coma=2, intubated=UN): 0 11 Extinction and Inattention (only scored if +): 0 Total Score: 2 MDM MDM MDM Narrative Medical decision making narrative: Stroke team initiated prior to arrival. Is more than 4 and half hours from onset of wake-up stroke however within 24 hours of last known normal. CT, CTA was ordered. Initial NIH of 3. I discussed with stroke neurology on the phone with deficits initial 3 down to 2 with paresthesia improved. She reviewed images, appears to have a ischemia on the left cerebellar she is taken nearly 24 hours old. States no LVO on her review. Radiologist confirms ischemia left cerebellar findings. He is not a candidate for peripheral tPA. No intra-arterial tPA with negative LVO scans. She recommended baby aspirin therapy with loading with 300 mg Plavix with inpatient work-up. Patient and sister updated. Radiology read on angiograms mild left internal carotid plaque. No LVO. Discussed with hospitalist Dr. Phelps for admission to PCU. Chest x-ray 1 view reviewed by myself bedside shows no acute process, small lung nodules more in the right side. Lab Data Attestation: I reviewed the patient's lab results. Labs: Laboratory Results - last 24 hr 11/30/21 11/30/21 11/30/21 12:21 12:21 12:21 WBC 9.8 RBC 5.19 Hgb 15.8 Hct 47.3 MCV 91.1 MCH 30.4 MCHC 33.4 RDW Std Deviation 43.3 RDW Coeff of [place] 12.9 Plt Count 209 MPV 9.4 Immature Gran % (Auto) 0.300 Neut % (Auto) 80.4 H Lymph % (Auto) 14.4 L Gray % (Auto) 4.4 Eos % (Auto) 0.3 Baso % (Auto) 0.2 Absolute Neuts (auto) 7.9 H Absolute Lymphs (auto) 1.41 Nucleated RBC % 0 PT 12.9 INR 1.0 APTT 22.9 L Sodium 139 Potassium 3.8 Chloride 108 H Carbon Dioxide 24.0 Anion Gap 7 BUN 18 Creatinine 1.14 Estim Creat Clear Calc 61.37 Est GFR (MDRD) Af Amer 81 Est GFR (MDRD) Non-Af 67 BUN/Creatinine Ratio 15.8 Glucose 233 H Calcium 9.6 Troponin I High Sens 11 Radiography Diagnostic Testing: Clinical Impression(s) from Imaging Studies Brain CT 11/30/21 12:28 IMPRESSION: There is evidence of ischemia of the superior aspect of the left cerebellar hemisphere. 1.3 cm x 2.3 cm in the peripheral aspect of the left cerebellar hemisphere. Correlation with the MRI or enhanced CT is recommended. Focal encephalomalacia in the left frontal lobe N.B. : The above Results were Read Back by Rodrigo Romero MD to Sky Rios and understanding confirmed on 11/30/2021 12:46:28 (ET). Electronically Signed: Rodrigo Romero MD at 12:47 EDT , ADDENDUM: 11/30/21 1254 IMPRESSION: There is evidence of ischemia of the superior aspect of the left cerebellar hemisphere. 1.3 cm x 2.3 cm in the peripheral aspect of the left cerebellar hemisphere. Correlation with the MRI or enhanced CT is recommended. Focal encephalomalacia in the left frontal lobe N.B. : The above Results were Read Back by Rodrigo Romero MD to Sky Rios and understanding confirmed on 11/30/2021 12:46:28 (ET). Electronically Signed: Rodrigo Romero MD at 12:47 EDT , Head/Neck CTA 11/30/21 12:28 IMPRESSION: Mild plaque at the origin of the left internal carotid artery. N.B. : The above Results were Read Back by Rodrigo Romero MD to Sky Rios and understanding confirmed on 11/30/2021 12:47:46 (ET). Electronically Signed: Rodrigo Romero MD at 12:48 EDT , ADDENDUM: 11/30/21 1255 IMPRESSION: Mild plaque at the origin of the left internal carotid artery. N.B. : The above Results were Read Back by Rodrigo Romero MD to Sky Rios and understanding confirmed on 11/30/2021 12:47:46 (ET). Electronically Signed: Rodrigo Romero MD at 12:48 EDT , Chest X-Ray 11/30/21 12:59 IMPRESSION: Stable mild increased markings at the lung bases suggestive of scarring. Multiple healed right rib fractures. Electronically Signed: Rodrigo Romero MD at 13:27 EDT , EKG Initial EKG: Attestation: I personally reviewed and interpreted this EKG as follows: Comments: Sinus rate of 80, no ST or T wave changes, right bundle branch block. Similar findings from EKG back in 2018. Stroke Documentation Questions Stroke Team Activated: Yes Reviewed Inclusion/Exclusion criteria: Yes Was Patient considered for Endovascular Intervention?: No-CTA negative, determined not to be an endovascular candidate IV Alteplase (t-PA) Administered: No No contraindications for IV Alteplase (t-PA) administration.: No Critical Care Time Critical Care Time: Yes Critical care time (excluding procedures): 30-74 minutes, Discussing w/Patient &/or Family/Pack Train Driver, Discussing w/Consultants, Arranging Admission or Transfer, Performing Direct Patient Care at Bedside and - (35 minutes) Discharge Plan Dx/Rx/DC Orders Clinical Impression: Acute cerebrovascular accident (CVA), Hyperlipidemia, Acute left-sided weakness, Ataxia, History of hypertension Disposition Disposition: Acute Care Hospital [facility] Discharge Date/Time: 11/30/21 14:41
[2021-11-30 12:50] LABS: Absolute Lymphocyte Count 1.41 X10^3/uL (0.83-4.51); Absolute Neutrophil Count 7.9 X10^3/uL (2.0-7.7); Basophil# 0.02 X10^3/uL; Basophil% 0.2 % (0-1); Eosinophil# 0.03 X10^3/uL; Eosinophils% 0.3 % (0-5); Hematocrit 47.3 % (40-54); Hemoglobin 15.8 g/dL (13.0-16.5); Lymphocyte # 1.41 X10^3/ul (0.83-4.51); Lymphocyte % 14.4 % (19-41); Mean Corp Hgb Conc 33.4 g/dL (32-36); Mean Corpuscular Hgb 30.4 pg (27.0-32.0); Mean Corpuscular Volume 91.1 fL (80-94); Mean Platelet Vol. 9.4 fl (6.2-12.0); Monocyte# 0.43 X10^3/uL; Monocyte% 4.4 % (0-10); NRBC Flagged by Analyzer 0 % (0-5); Neutrophil % 80.4 % (47-70); Platelet Count 209 K/mm3 (150-450); RBC Distribution Width CV 12.9 % (11.6-14.6); RBC Distribution Width SD 43.3 fl (35.1-43.9); Red Blood Count 5.19 M/mm3 (4.6-6.2); White Blood Count 9.8 K/mm3 (4.4-11.0)
[2021-11-30] MEDS: Clopidogrel Bisulfate 300 MG Tablet PO (12:59)
[2021-11-30] MEDS: Aspirin 81 MG TAB.CHEW PO (12:59)
--- NOTE | 2021-11-30 12:59 | RAD_ITS ---
STUDY: X-RAY CHEST REASON FOR EXAM: Male, 71 years old. Neuro deficit, acute, stroke suspected TECHNIQUE: Single AP portable view of the chest. COMPARISON: Comparison is made with prior study dated 01/28/2015. FINDINGS: EKG electrodes are seen. Mild increased markings at the lung bases suggestive of mild scarring. There is no demonstrated pleural abnormality. Normal size heart. Normal mediastinum and axel. Normal visualized pulmonary arteries. There is atherosclerotic calcification of the aortic arch with tortuosity. There are diffuse degenerative changes of the visualized thoracic spine. Multiple healed right rib fractures. There is no demonstrated abnormality of the visualized soft tissue structures of the upper abdomen. RAD/Chest 1 View IMPRESSION: Stable mild increased markings at the lung bases suggestive of scarring. Multiple healed right rib fractures. Electronically Signed: Rodrigo Romero MD at 13:27 EDT ,
[2021-11-30 13:03] LABS: Prothrombin Time (Protime)PT. 12.9 SECONDS (11.7-14.9)
[2021-11-30 13:04] LABS: Partial Thromboplast Time 22.9 Seconds (24.1-36.2)
[2021-11-30 13:09] LABS: Anion Gap 7 (5-15); BUN 18 mg/dL (7-18); BUN/Creat Ratio 15.8 RATIO (10-20); Calcium,Total 9.6 mg/dL (8.5-10.1); Chloride 108 mmol/L (98-107); Creatinine, Serum 1.14 mg/dL (0.70-1.30); EST Glomerular Filtration Rate 67 mL/min (>60); Est Glom Filt Rate - Afr Amer 81 mL/min (>60); Estimated Creatinine Clearance 61.37 ml/min; Glucose 233 mg/dL (74-106); Potassium 3.8 mmol/L (3.5-5.1); Sodium Level 139 mmol/L (136-145); Troponin-I HS 11 pg/mL (3.0-78.0)
--- NOTE | 2021-11-30 13:14 | NURSING ---
PCU [place] ACUTE CVA, LEFT SIDED WEAKNESS
--- NOTE | 2021-11-30 13:18 | MRI_ITS ---
EXAM: MR HEAD WITHOUT INTRAVENOUS CONTRAST CLINICAL INDICATION: CVA TECHNIQUE: Multiplanar and multisequence MR images of the brain were obtained without intravenous contrast. This report was created using [employer] report generation technology. COMPARISON: CT done earlier FINDINGS: BRAIN AND EXTRA-AXIAL SPACES: Acute ischemic infarct of the left cerebellum. Old infarct of the left frontal lobe. Chronic involutional changes of the brain. No intra- or extra-axial hemorrhage. No intracranial mass or mass effect. Ventricles are appropriate for age. No hydrocephalus. Basal cisterns are patent. SELLA: Unremarkable. Normal sella turcica, pituitary gland, infundibular stalk, optic chiasm and hypothalamus. AUDITORY SYSTEM: Unremarkable. The internal auditory canals are patent. BONES/JOINTS: Unremarkable. No discrete lytic or blastic abnormalities. SINUSES: Unremarkable as visualized. Clear. MASTOID AIR CELLS: Unremarkable as visualized. Clear. ORBITS: Unremarkable as visualized. Both globes, extraocular muscles, optic nerves and retrobulbar fat appear unremarkable. VASCULATURE: Unremarkable as visualized. Normal flow voids in the major intracranial circulation. MRI/Brain without Contrast IMPRESSION: Acute ischemic infarct of the left cerebellum. Electronically Signed: Kashmir Gibbs MD at 18:28 EDT ,
--- NOTE | 2021-11-30 13:19 | PCM.HP.STD ---
HPI - General General Date of Admission: 11/30/21 HPI Narrative CHRISTA ESTRADA, is a 71 M who presents to the hospital with evidence of a left cerebellar stroke on CT scan. His last known well was last night at midnight this morning he woke up with slurred speech and on exam in the ER he has some ataxia as well as a facial palsy. NIH is 2. CTA of his head and neck is unremarkable for any large vessel occlusion. But the CT brain does demonstrate a left cerebellar CVA. 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 fib. [facility] Medical History Hyperlipidemia Prediabetes Home Medications simvastatin 20 mg tablet 20 mg PO QHS 10/05/17 [History Last Taken 01/27/18] amlodipine 5 mg tablet 1 tab PO DAILY 11/30/21 [History Last Taken Unknown] escitalopram oxalate 10 mg tablet 1 tab PO DAILY 11/30/21 [History Last Taken Unknown] metformin 500 mg tablet 500 tab PO DAILY 11/30/21 [History Last Taken Unknown] Allergy/AdvReac Type Severity Reaction Status Date / Time No Known Allergies Allergy Verified 11/30/21 12:42 Family History (Updated 11/30/21 @ 14:[address] Mike Phelps MD) Other CVA (cerebral vascular accident) Diabetes Surgical History (Updated 11/30/21 @ 14:30 by Aleah Benito) History of appendectomy History of cholecystectomy Social History Smoking Status: Never smoker ROS Constitutional Constitutional: Denies chills, fatigue, fever(s) or malaise Eyes Eyes: Denies blurry vision ENT HEENT: Denies headache(s) or nasal discharge Cardiovascular Cardiovascular: Denies chest pain, dyspnea on exertion or syncope Respiratory/Chest Respiratory/Chest: Denies cough, shortness of breath at rest or shortness of breath with exertion Gastrointestinal Gastrointestinal: Denies constipation, diarrhea, nausea or vomiting Genitourinary Genitourinary: Denies dysuria Neurologic Neurologic: Reports abnormal speech and focal weakness; Denies numbness or tremor(s) Psychiatric Psychiatric: Denies anxiety or depression Vital Signs Vital Signs Vital Signs: 11/30/21 12:28 11/30/21 12:33 11/30/21 12:42 Temperature 96.9 F L Temperature Source Temporal Pulse Rate 69 83 Respiratory Rate 16 19 H Blood Pressure 147/82 H 187/95 H Blood Pressure Mean 103 125 Pulse Ox 95 95 Oxygen Delivery Method Room Air Room Air Room Air 11/30/21 12:43 11/30/21 12:48 11/30/21 12:58 Temperature Temperature Source Pulse Rate 76 71 Respiratory Rate 23 H 21 H Blood Pressure 187/95 H 158/90 H 158/90 H Blood Pressure Mean 125 112 112 Pulse Ox 95 93 Oxygen Delivery Method Room Air Room Air 11/30/21 13:12 Temperature 97 F L Temperature Source Temporal Pulse Rate 68 Respiratory Rate 18 Blood Pressure 141/94 H Blood Pressure Mean 109 Pulse Ox 94 Oxygen Delivery Method Room Air Weight Weight: 260 lb 9.382 oz Body Mass Index (BMI) 37.3 Physical Exam Narrative General: Alert, Oriented x3, Cooperative, No apparent distress HEENT: Atraumatic, PERRLA, EOMI, Normocephalic Oral: Moist Mucosa Neck: Supple, No JVD Lungs: Clear to auscultation, Normal air movement, No rhonchi, No wheeze, No rales Cardiovascular: Regular rate, Regular Rhythm, Normal S1, Normal S2, No murmurs Abdomen: Soft, Non Tender, Non-Distended, No Hepato-splenomegaly Extremities: No edema, Capillary Refill Less than 3 Seconds Skin: No rashes, No breakdown Musculoskeletal: No Tenderness to Palpation of Joints or Extremities Neurological: Sensation and strength is intact and equal bilaterally. He does have a left upper arm ataxia but no facial droop Psych/Mental Status: Normal Affect, Appropriate Results Lab / Micro Data Result Diagrams: 11/30/21 12:21 11/30/21 12:21 Labs: Laboratory Results - last 24 hr 11/30/21 12:21: WBC 9.8, RBC 5.19, Hgb 15.8, Hct 47.3, MCV 91.1, MCH 30.4, MCHC 33.4, RDW Std Deviation 43.3, RDW Coeff of [place] 12.9, Plt Count 209, MPV 9.4, Immature Gran % (Auto) 0.300, Neut % (Auto) 80.4 H, Lymph % (Auto) 14.4 L, [place] % (Auto) 4.4, Eos % (Auto) 0.3, Baso % (Auto) 0.2, Absolute Neuts (auto) 7.9 H, Absolute Lymphs (auto) 1.41, Nucleated RBC % 0 11/30/21 12:21: PT 12.9, INR 1.0, APTT 22.9 L 11/30/21 12:21: Sodium 139, Potassium 3.8, Chloride 108 H, Carbon Dioxide 24.0, Anion Gap 7, BUN 18, Creatinine 1.14, Estim Creat Clear Calc 61.37, Est GFR (MDRD) Af Amer 81, Est GFR (MDRD) Non-Af 67, BUN/Creatinine Ratio 15.8, Glucose 233 H, Calcium 9.6, Troponin I High Sens [address] 11/30/21 12:28 IMPRESSION: There is evidence of ischemia of the superior aspect of the left cerebellar hemisphere. 1.3 cm x 2.3 cm in the peripheral aspect of the left cerebellar hemisphere. Correlation with the MRI or enhanced CT is recommended. Focal encephalomalacia in the left frontal lobe N.B. : The above Results were Read Back by Rodrigo Romero MD to Sky Rios and understanding confirmed on 11/30/2021 12:46:28 (ET). Electronically Signed: Rodrigo Romero MD at 12:47 EDT , ADDENDUM: 11/30/21 1254 IMPRESSION: There is evidence of ischemia of the superior aspect of the left cerebellar hemisphere. 1.3 cm x 2.3 cm in the peripheral aspect of the left cerebellar hemisphere. Correlation with the MRI or enhanced CT is recommended. Focal encephalomalacia in the left frontal lobe N.B. : The above Results were Read Back by Rodrigo Romero MD to Sky Riso and understanding confirmed on 11/30/2021 12:46:28 (ET). Electronically Signed: Rodrigo Romero MD at 12:47 EDT , Head/Neck CTA 11/30/21 12:28 IMPRESSION: Mild plaque at the origin of the left internal carotid artery. N.B. : The above Results were Read Back by Rodrigo Romero MD to Sky Rios and understanding confirmed on 11/30/2021 12:47:46 (ET). Electronically Signed: Rodrigo Romero MD at 12:48 EDT , ADDENDUM: 11/30/21 1255 IMPRESSION: Mild plaque at the origin of the left internal carotid artery. N.B. : The above Results were Read Back by Rodrigo Romero MD to Sky Rios and understanding confirmed on 11/30/2021 12:47:46 (ET). Electronically Signed: Rodrigo Romero MD at 12:48 EDT , Assessment & Plan Assessment/Plan (1) Cerebrovascular accident (CVA) due to embolism of left cerebellar artery: PLAN: Plan 1. Left cerebellar CVA/HTN/HLD ? Have evidence of a stroke in his left cerebellum ? [facility] neurology recommended admission for further work-up ? Continue with MRI ? Loading dose of Plavix ? We will place him on daily Plavix as well as daily aspirin ? We will increase his simvastatin to Lipitor 80 mg ? Allow permissive hypertension ? PT/OT evaluation for discharge planning ? We will obtain an echo 2. DM2 ? Hold his home metformin ? We will place him on sliding scale insulin ? Accu-Cheks ? We will make adjustments as necessary 3. Anxiety/depression ? Stable ? Continue with escitalopram 4. History of VTE ? He had been on Eliquis which was discontinued several years ago DVT: Lovenox Charges/Coding Visit Charges Inpatient E&M: 28242 Init Hosp L2
--- NOTE | 2021-11-30 14:16 | ECHOCS_ITS ---
Reason For Study: TIA/CVA Procedure This was a 2D Doppler, Color Flow transthoracic echocardiogram. The study was technically difficult. Contrast injection was performed. Exam performed portable in patient room. Left Ventricle Normal left ventricle. The estimated ejection fraction is 55-60 %. Right Ventricle Normal right ventricle. Normal systolic function. Atria Normal left atrium. Normal right atrium. Mitral Valve The mitral valve is structurally normal. No prolapse or stenosis seen. Trivial mitral valve insufficiency. Tricuspid Valve Normal tricuspid valve. No tricuspid valve insufficiency. Aortic Valve Mild focal aortic valve calcification. Pulmonic Valve The pulmonic valve is not well visualized. Great Vessels Normal aortic root. Pericardium/Pleural No pericardial effusion. Medication Diluted definity 2ml given slow IV push to enhance endocardial definition. Performed a rapid injection of agitated mix of 9 cc saline and 1cc air to assess for atrial septal defect. MMode/2D Measurements & Calculations RVDd: 3.2 cm Ao root diam: 3.0 cm LVAd ap4: 34.2 cm2 LVLd ap4: 8.2 cm EDV(MOD-sp4): 120.0 ml EDV(sp4-el): 120.7 ml LVAs ap4: 17.6 cm2 LVLs ap4: 6.6 cm ESV(MOD-sp4): 39.6 ml ESV(sp4-el): 39.9 ml EF(MOD-sp4): 67.0 % EF(sp4-el): 66.9 % SV(MOD-sp4): 80.4 ml SV(sp4-el): 80.8 ml LA dimension(2D): 4.0 cm Time Measurements MV dec time: 0.28 sec Doppler Measurements & Calculations MV E max tay: 58.8 cm/sec Lat Peak E' Tay: 9.8 cm/sec Med Peak E' Tay: 7.6 cm/sec MV A max tay: 67.3 cm/sec E/E' lat: 6.0 E/E' med: 7.8 MV E/A: 0.87 MV V2 max: 79.0 cm/sec Ao V2 max: 102.2 cm/sec MV max P.5 mmHg MV dec slope: 209.8 cm/sec2 Ao max P.2 mmHg MV V2 mean: 48.3 cm/sec Ao V2 mean: 71.9 cm/sec MV mean P.0 mmHg Ao mean P.3 mmHg MV V2 VTI: 20.8 cm Ao V2 VTI: 22.6 cm LV V1 max: 106.4 cm/sec PA V2 max: 79.6 cm/sec LV V1 max P.5 mmHg PA V2 mean: 54.9 cm/sec LV V1 mean P.6 mmHg LV V1 mean: 75.7 cm/sec LV V1 VTI: 24.1 cm ECHO/Echo Complete W/ Contrast Interpretation Summary The estimated ejection fraction is 55-60 %. No significant changes from previous echo Ordering Physician: Mike Phelps Performed By: Cristy Pablo RCS
--- NOTE | 2021-11-30 14:50 | CHAPLAIN ---
Type of Pastoral Visit ___ Initial Visit ___ Follow-up Visit ___ On-call Visit ___ General Patient Visit ___ Spiritual Assessment ___ Family Conference ___ Bereavement _x__ Rapid Response ___ Code Blue ___ Other (describe below) Pastoral Care Referral From ___ Patient _x__ Family ___ Nurse ___ Physician ___ Care Specialist ___ On Air Personality ___ Other (describe below) Sacrament/Intervention _x__ Active listening ___ Anointing ___ Yazdanism ___ Bereavement ___ Communion _x__ Jessica exploration ___ _x__ Life review _x__ Prayer ___ Reconciliation ___ Sacrament of Sick _x__ Supportive presence ___ Wedding ___ Other (describe below) Pastoral Comments came to ED for the stroke alert called; met with patient in the room first and offered support; pt said his sister should be arriving; found sister in the waiting area with SW; offered support to sister and then escorted her back to room to meet with pt and doctor; sister requested prayer and spiritual care support; pt agreed; stayed during DR consult in support of both; once a plan was determined for pt, left pt and sister, giving them offer of needs addressed
[2021-11-30] MEDS: Ondansetron 4 MG/2 ML Vial IV (15:47)
[2021-11-30] MEDS: Insulin Lispro 100 UNIT/ML INSULN.PEN SC ×2 (16:12→21:14)
[2021-11-30 16:30] LABS: Bedside Glucose 214 mg/dL (74-106)
[2021-11-30 22:01] LABS: Bedside Glucose 191 mg/dL (74-106)
--- NOTE | 2021-11-30 22:24 | CM.ED ---
SW Note Referral Reason: Stroke Alert Referral Source: Stroke SW met with patient's sister, Daisha Rascon. Patient resides with his sister and other brother. Patient works at [email or web address]. SW provided support to patient's sister. [employer] Radar Operator was also present and provided support. SW remains available if needs arise. [place] VALENCIA
[2021-12-01] VITALS (11 sets, daily range): BP systolic 120–140; BP diastolic 56–77; PULSE 55–69; RESP 16–20; TEMP 36.2–36.8; O2SAT 93–97; BMI 36.5
[2021-12-01 06:14] LABS: Absolute Lymphocyte Count 1.85 X10^3/uL (0.83-4.51); Absolute Neutrophil Count 6.3 X10^3/uL (2.0-7.7); Basophil# 0.02 X10^3/uL; Basophil% 0.2 % (0-1); Eosinophil# 0.05 X10^3/uL; Eosinophils% 0.6 % (0-5); Hematocrit 45.1 % (40-54); Hemoglobin 14.9 g/dL (13.0-16.5); Lymphocyte # 1.85 X10^3/ul (0.83-4.51); Lymphocyte % 20.6 % (19-41); Mean Corpuscular Volume 90.9 fL (80-94); Mean Platelet Vol. 9.3 fl (6.2-12.0); Monocyte# 0.76 X10^3/uL; Monocyte% 8.5 % (0-10); NRBC Flagged by Analyzer 0 % (0-5); Neutrophil # 6.26 X10^3/uL (2.7-7.7); Neutrophil % 69.8 % (47-70); Platelet Count 204 K/mm3 (150-450); RBC Distribution Width CV 13.1 % (11.6-14.6); RBC Distribution Width SD 43.6 fl (35.1-43.9); Red Blood Count 4.96 M/mm3 (4.6-6.2)
[2021-12-01] MEDS: Insulin Lispro 100 UNIT/ML INSULN.PEN SC ×3 (06:41→20:54)
[2021-12-01 06:46] LABS: Anion Gap 7 (5-15); BUN 18 mg/dL (7-18); BUN/Creat Ratio 20.4 RATIO (10-20); Chloride 106 mmol/L (98-107); Cholesterol 178 mg/dL (200); Creatinine, Serum 0.88 mg/dL (0.70-1.30); EST Glomerular Filtration Rate 90 mL/min (>60); Est Glom Filt Rate - Afr Amer 109 mL/min (>60); Glucose 148 mg/dL (74-106); High Density Lipoprotein 45 mg/dL; Potassium 3.7 mmol/L (3.5-5.1); Sodium Level 139 mmol/L (136-145); Triglycerides 136 mg/dL; Very Low Density Lipoprotein 27 mg/dL (5-40)
[2021-12-01 07:00] LABS: Bedside Glucose 167 mg/dL (74-106)
--- NOTE | 2021-12-01 07:17 | TELEMED_ITS ---
[facility] Telemed has confirmed receipt of a request for visit. This document confirms receipt of the order initiating the consult. To find the results of the consultation, please view the patient's reports for the scanned Telemed Consult.
--- NOTE | 2021-12-01 09:30 | CASEMGMT ---
Addendum entered by Niurka Macias 12/01/21 10:08: Notified SW of pt request for Rehab Unit. Original Note: JERRELL EUGENE Assessment: Face to Face with pt for initial transition planning/care coordination assessment. RN VALORIE introduced self and role at [facility], pt voices understanding and consents to assessment. Pt is A/O x4 and answers all questions appropriately at this time. Pt sitting up in chair in no distress. Care providers, pharmacy, and demographics verified/updated. Admitting Dx: L cerebellar CVA PCP: Maria T Specialists:Pt states he has a female cardio but is unsure of the name. [facility] Insurance: [employer], [employer] Prescription Benefit: yes LW/HPOA: Pt denies having a LW/DPOA and denies need for info regarding AD. LNOK: Daisha Rascon, sister Living Arrangements: Pt lives in the basement of his sister and brother's home. States there is a ramp to enter. Pt reports he was I in ADL's prior to hospitalization. Transportation: Pt drove self prior to hospitalization and denies concerns with transportation. DME/HHC/SNF: Pt has a chair lift, FWW and cane. States he does not have a shower chair. Pt did not use DME prior to hospitalization. Pt denies hx of HHC or SNF stays. Pt states it was recommended for him to go to the Rehab unit at [facility]. Pt states he is agreeable to this. He has not made his sister aware yet and states she will be in today and he will discuss with her. He is aware that SW will see him for this. Pt states no further concerns/needs. CM to follow. Advised pt to ask CM if any further question/concerns/needs arise, voices understanding. Pt Goal: [facility] Rehab Unit Plan: [facility] Rehab Unit
[2021-12-01] MEDS: Aspirin 81 MG TAB.CHEW PO (09:47)
[2021-12-01] MEDS: Enoxaparin 40 MG/0.4 ML Syringe SC (09:47)
[2021-12-01] MEDS: Escitalopram Oxalate 10 MG Tablet PO (09:47)
[2021-12-01] MEDS: Clopidogrel Bisulfate 75 MG Tablet PO (09:47)
[2021-12-01] MEDS: Acetaminophen 325 MG Tablet 650 MG PO (09:47)
--- NOTE | 2021-12-01 10:19 | PCM.PN.HOSP ---
Subjective Subjective Doing well, no new issues overnight. Still has ataxia in his left upper extremity Objective Data Objective Data Vital Signs: Vital Signs Temp Pulse Resp BP Pulse Ox O2 Del Method 97.8 F 62 18 130/68 H 96 Room Air 12/01/21 09:00 12/01/21 09:00 12/01/21 09:00 12/01/21 09:00 12/01/21 09:00 12/01/21 09:00 Oxygen Delivery Method Room Air Weight: 254 lb 10.142 oz Body Mass Index (BMI) 36.5 Intake & Output: Intake and Output for Last 24 Hours 11/30/21 12/01/21 12/02/21 03:59 03:59 03:59 Intake Total 50 / 50 Balance 50 / 50 Lab / Micro Data Result Diagrams: 12/01/21 05:05 12/01/21 05:05 Labs: Laboratory Results - last 24 hr 11/30/21 12:21: WBC 9.8, RBC 5.19, Hgb 15.8, Hct 47.3, MCV 91.1, MCH 30.4, MCHC 33.4, RDW Std Deviation 43.3, RDW Coeff of [place] 12.9, Plt Count 209, MPV 9.4, Immature Gran % (Auto) 0.300, Neut % (Auto) 80.4 H, Lymph % (Auto) 14.4 L, [place] % (Auto) 4.4, Eos % (Auto) 0.3, Baso % (Auto) 0.2, Absolute Neuts (auto) 7.9 H, Absolute Lymphs (auto) 1.41, Nucleated RBC % 0 11/30/21 12:21: PT 12.9, INR 1.0, APTT 22.9 L 11/30/21 12:21: Sodium 139, Potassium 3.8, Chloride 108 H, Carbon Dioxide 24.0, Anion Gap 7, BUN 18, Creatinine 1.14, Estim Creat Clear Calc 61.37, Est GFR (MDRD) Af Amer 81, Est GFR (MDRD) Non-Af 67, BUN/Creatinine Ratio 15.8, Glucose 233 H, Calcium 9.6, Troponin I High Sens 11 11/30/21 16:09: POC Glucose 214 H 11/30/21 21:12: POC Glucose 191 H 12/01/21 05:05: WBC 9.0, RBC 4.96, Hgb 14.9, Hct 45.1, MCV 90.9, MCH 30.0, MCHC 33.0, RDW Std Deviation 43.6, RDW Coeff of [place] 13.1, Plt Count 204, MPV 9.3, Immature Gran % (Auto) 0.300, Neut % (Auto) 69.8, Lymph % (Auto) 20.6, [place] % (Auto) 8.5, Eos % (Auto) 0.6, Baso % (Auto) 0.2, Absolute Neuts (auto) 6.3, Absolute Lymphs (auto) 1.85, Nucleated RBC % 0 12/01/21 05:05: Sodium 139, Potassium 3.7, Chloride 106, Carbon Dioxide 26.0, Anion Gap 7, BUN 18, Creatinine 0.88, Estim Creat Clear Calc 79.50, Est GFR (MDRD) Af Amer 109, Est GFR (MDRD) Non-Af 90, BUN/Creatinine Ratio 20.4 H, Glucose 148 H, Calcium 9.0, Triglycerides 136, Cholesterol 178, LDL Cholesterol 106, VLDL Cholesterol 27, HDL Cholesterol 45 12/01/21 06:40: POC Glucose 167 H Micro: Microbiology 11/30/21 14:00 Nasal Secretion SARS-CoV-2 Antigen (Rapid) - Final Radiography Diagnostic Testing: Radiology Impression Brain CT 11/30/21 12:28 IMPRESSION: There is evidence of ischemia of the superior aspect of the left cerebellar hemisphere. 1.3 cm x 2.3 cm in the peripheral aspect of the left cerebellar hemisphere. Correlation with the MRI or enhanced CT is recommended. Focal encephalomalacia in the left frontal lobe N.B. : The above Results were Read Back by Rodrigo Romero MD to Sky Rios and understanding confirmed on 11/30/2021 12:46:28 (ET). Electronically Signed: Rodrigo Romero MD at 12:47 EDT , ADDENDUM: 11/30/21 1254 IMPRESSION: There is evidence of ischemia of the superior aspect of the left cerebellar hemisphere. 1.3 cm x 2.3 cm in the peripheral aspect of the left cerebellar hemisphere. Correlation with the MRI or enhanced CT is recommended. Focal encephalomalacia in the left frontal lobe N.B. : The above Results were Read Back by Rodrigo Romero MD to Sky Rios and understanding confirmed on 11/30/2021 12:46:28 (ET). Electronically Signed: Rodrigo Romero MD at 12:47 EDT , Head/Neck CTA 11/30/21 12:28 IMPRESSION: Mild plaque at the origin of the left internal carotid artery. N.B. : The above Results were Read Back by Rodrigo Romero MD to Sky Rios and understanding confirmed on 11/30/2021 12:47:46 (ET). Electronically Signed: Rodrigo Romero MD at 12:48 EDT , ADDENDUM: 11/30/21 1255 IMPRESSION: Mild plaque at the origin of the left internal carotid artery. N.B. : The above Results were Read Back by Rodrigo Romero MD to Sky Rios and understanding confirmed on 11/30/2021 12:47:46 (ET). Electronically Signed: Rodrigo Romero MD at 12:48 EDT , Chest X-Ray 11/30/21 12:59 IMPRESSION: Stable mild increased markings at the lung bases suggestive of scarring. Multiple healed right rib fractures. Electronically Signed: Rodrigo Romero MD at 13:27 EDT , Brain MRI 11/30/21 13:18 IMPRESSION: Acute ischemic infarct of the left cerebellum. Electronically Signed: Kashmir Gibbs MD at 18:28 EDT , Echocardiogram 11/30/21 14:16 Interpretation Summary The estimated ejection fraction is 55-60 %. No significant changes from previous echo Ordering Physician: Mike Phelps Performed By: Cristy Pablo RCS Physical Exam Narrative General: Alert, Oriented x3, Cooperative, No apparent distress HEENT: Atraumatic, PERRLA, EOMI, Normocephalic Oral: Moist Mucosa Neck: Supple, No JVD Lungs: Clear to auscultation, Normal air movement, No rhonchi, No wheeze, No rales Cardiovascular: Regular rate, Regular Rhythm, Normal S1, Normal S2, No murmurs Abdomen: Soft, Non Tender, Non-Distended, No Hepato-splenomegaly Extremities: No edema, Capillary Refill Less than 3 Seconds Skin: No rashes, No breakdown Musculoskeletal: No Tenderness to Palpation of Joints or Extremities Neurological: Sensation and strength is intact and equal bilaterally.? He does have a left upper arm ataxia but no facial droop, he does have some facial numbness Psych/Mental Status: Normal Affect, Appropriate Assessment & Plan Assessment/Plan (1) Cerebrovascular accident (CVA) due to embolism of left cerebellar artery: PLAN: Plan 1. Left cerebellar CVA/HTN/HLD ? Have evidence of a stroke in his left cerebellum ?MRI with acute left cerebellar infarct ? Loading dose of Plavix ? We will place him on daily Plavix but discontinue aspirin per neurology's recommendations. We will continue NIH's for another 24 hours and will likely need a long-term Holter monitor on discharge ? We will increase his simvastatin to Lipitor 80 mg ? Allow permissive hypertension ? PT/OT evaluation for discharge planning ? Echo was unremarkable 2. DM2 ? Hold his home metformin ? We will place him on sliding scale insulin ? Accu-Cheks ? We will make adjustments as necessary 3. Anxiety/depression ? Stable ? Continue with escitalopram 4. History of VTE ? He had been on Eliquis which was discontinued several years ago DVT: Lovenox Charges/Coding Visit Charges Inpatient E&M: 98927 Subs Hosp L2
[2021-12-01 12:25] LABS: Bedside Glucose 159 mg/dL (74-106)
--- NOTE | 2021-12-01 14:28 | CM.ED ---
Addendum entered by America hCurch 12/01/21 15:39: SW went back to the patient's room and spoke to patient privately again. Patient again confirmed no SI/HI. He voices that being is the hospital is difficult and frustrating for him as he generally helps others so being in the hospital and needing help is hard. SW provided emotional support. Encouraged patient to be open to help and support. Patient was brighter and reactive and smiled during the conversation. Patient said that the accurate PHQ 9 score for question number #9 was a 0. SW updated score for PGHQ 9 to total score of 10. America Church PUBLIC HEALTH NURSE IT HELP DESK TECHNICIAN Original Note: NIKHIL Note SW went to patient's room and introduced self. Patient was in the room with his sister, Daisha. Patient gave verbal consent for this junior copywriter to speak to him in the presence of his sister. However, Daisha said that she would step outside the room to give this junior copywriter and patient privacy. SW explained that for individuals who have a positive stroke we complete the PHQ9 and patient verbalized understanding and agreement with completing the PHQ-9. The PHQ 9 has been completed and in the chart. SW reviewed the form with patient and he gave answers to the individual questions. Patient scored a 11 which is Moderate. Patient said that in the past, years ago he had thoughts of better off as he would be an burden. However patient reports that the thoughts are fleeting and no plans or actions. Patient said that being in the hospital with the stroke also makes him feel like a burden to family. Patient said that it is difficult to not do the work he used to do. Patient said that the world also is upsetting to him and thus he does not watch TV. Patient denied any current SI/HI and voiced if he had any thoughts he would notify staff. Patient said that he feels that God will decide when he needs to go home and thus his radha is a protective factor as he voiced only God can decide when he dies. Patient said that he overeats and I know it.. the biggest meal I eat is when I get home late at night and I know that is not good for me. Patient said that he enjoys watching [employer] movies and he plays games on his ipad which are good distractionary tools and coping skills. Patient said that he generally enjoys his job but sometimes he doesn't enjoy it as much. SW discussed that patient's PHQ score was 11 which is moderate depression. Patient said that he takes a depression pill (per chart lexapro) but does not feel that it is helpful. Patient said that he had gone to a counselor in the past on 2 occassions as his PCP said that he was depressed. NIKHIL asked RN VALORIE Bah to contact MD about increasing patient's lexapro due to patient's moderate depression PHQ9 score. NIKHIL updated patient's RN and he indicated that patient's lexapro had been increased. NIKHIL went back into the room and met with patient and his sister, Daisha. Patient gave verbal consent to speak in the presence of his sister. SW updated patient that the staff had felt patient had been a good candidate for Rehab Unit. Patient was provided with brochure on [facility] rehab unit. NIKHIL also provided patient with list of [facility] for reference. Patient voiced desire for referral to Rehab unit. SW also provided patient with counseling list. NIKHIL also provided patient with [facility] brochure and information about their program including Lucy Quintanilla's contact information for . NIKHIL advised patient's sister that patient had not voiced any SI/HI but appears to be depressed. She voiced no concerns regarding her brother's safety but stated that the lexapro works well for her. Sister, Daisha, was supportive of patient and the increase in medication and resources provided. NIKHIL sent email to Rachel advising her that patient is interested in Rehab Unit. Plan: Referral to [facility]
[2021-12-01 16:50] LABS: Bedside Glucose 179 mg/dL (74-106)
[2021-12-01] MEDS: Atorvastatin Calcium 80 MG Tablet PO (20:54)
[2021-12-01 21:40] LABS: Bedside Glucose 152 mg/dL (74-106)
[2021-12-02] VITALS (10 sets, daily range): BP systolic 126–137; BP diastolic 67–76; PULSE 55–70; RESP 16–18; TEMP 36.2–36.6; O2SAT 94–95; BMI 36.5
[2021-12-02] MEDS: Insulin Lispro 100 UNIT/ML INSULN.PEN SC ×3 (06:26→21:44)
[2021-12-02 07:00] LABS: Bedside Glucose 159 mg/dL (74-106)
--- NOTE | 2021-12-02 09:33 | PCM.PN.HOSP ---
Subjective Subjective Ataxia is improved, numbness is gone. Plan for pre-CERT for rehab Objective Data Objective Data Vital Signs: Vital Signs Temp Pulse Resp BP Pulse Ox O2 Del Method 97.9 F 70 18 135/72 H 94 Room Air 12/02/21 09:00 12/02/21 09:00 12/02/21 09:00 12/02/21 09:00 12/02/21 09:00 12/02/21 09:00 Oxygen Delivery Method Room Air Weight: 254 lb 10.142 oz Body Mass Index (BMI) 36.5 Intake & Output: Intake and Output for Last 24 Hours 12/01/21 12/02/21 12/03/21 03:59 03:59 03:59 Intake Total 50 / 50 1020 / 1020 Balance 50 / 50 1020 / 1020 Lab / Micro Data Result Diagrams: 12/01/21 05:05 12/01/21 05:05 Labs: Laboratory Results - last 24 hr 12/01/21 12:00: POC Glucose 159 H 12/01/21 16:28: POC Glucose 179 H 12/01/21 20:53: POC Glucose 152 H 12/02/21 06:24: POC Glucose 159 H Micro: Microbiology 11/30/21 14:00 Nasal Secretion SARS-CoV-2 Antigen (Rapid) - Final Physical Exam Narrative General: Alert, Oriented x3, Cooperative, No apparent distress HEENT: Atraumatic, PERRLA, EOMI, Normocephalic Oral: Moist Mucosa Neck: Supple, No JVD Lungs: Clear to auscultation, Normal air movement, No rhonchi, No wheeze, No rales Cardiovascular: Regular rate, Regular Rhythm, Normal S1, Normal S2, No murmurs Abdomen: Soft, Non Tender, Non-Distended, No Hepato-splenomegaly Extremities: No edema, Capillary Refill Less than 3 Seconds Skin: No rashes, No breakdown Musculoskeletal: No Tenderness to Palpation of Joints or Extremities Neurological: Sensation and strength is intact and equal bilaterally.? He does have a left upper arm ataxia but no facial droop Psych/Mental Status: Normal Affect, Appropriate Assessment & Plan Assessment/Plan (1) Cerebrovascular accident (CVA) due to embolism of left cerebellar artery: PLAN: Plan 1. Left cerebellar CVA/HTN/HLD ? Have evidence of a stroke in his left cerebellum ?MRI with acute left cerebellar infarct ? Daily Plavix ? We will place him on daily Plavix but discontinue aspirin per neurology's recommendations. We will continue NIH's for another 24 hours and will likely need a long-term Holter monitor on discharge ? We will increase his simvastatin to Lipitor 80 mg ? Allow permissive hypertension ? PT/OT evaluation ? Plan for rehab on discharge ? Echo was unremarkable 2. DM2 ? Hold his home metformin ? We will place him on sliding scale insulin ? Accu-Cheks ? We will make adjustments as necessary 3. Anxiety/depression ? Stable ? Continue with escitalopram 4. History of VTE ? He had been on Eliquis which was discontinued several years ago DVT: Lovenox Charges/Coding Visit Charges Inpatient E&M: 00062 Subs Hosp L2
[2021-12-02] MEDS: Enoxaparin 40 MG/0.4 ML Syringe SC (10:39)
[2021-12-02] MEDS: Clopidogrel Bisulfate 75 MG Tablet PO (10:39)
[2021-12-02] MEDS: Escitalopram Oxalate 20 MG Tablet PO (10:39)
[2021-12-02 11:55] LABS: Bedside Glucose 143 mg/dL (74-106)
[2021-12-02 16:15] LABS: Bedside Glucose 155 mg/dL (74-106)
[2021-12-02] MEDS: Atorvastatin Calcium 80 MG Tablet PO (21:44)
[2021-12-03 01:30] LABS: Bedside Glucose 189 mg/dL (74-106)
[2021-12-03 03:00] VITALS: BP 148/86; PULSE 56; RESP 18; TEMP 36; O2SAT 97
[2021-12-03] MEDS: Insulin Lispro 100 UNIT/ML INSULN.PEN SC ×2 (06:20→12:13)
[2021-12-03 06:26] LABS: Absolute Lymphocyte Count 2.65 X10^3/uL (0.83-4.51); Absolute Neutrophil Count 3.3 X10^3/uL (2.0-7.7); Basophil# 0.04 X10^3/uL; Basophil% 0.6 % (0-1); Eosinophil# 0.23 X10^3/uL; Eosinophils% 3.3 % (0-5); Hematocrit 44.6 % (40-54); Lymphocyte # 2.65 X10^3/ul (0.83-4.51); Lymphocyte % 38.3 % (19-41); Mean Corp Hgb Conc 33.6 g/dL (32-36); Mean Corpuscular Hgb 30.3 pg (27.0-32.0); Mean Corpuscular Volume 90.1 fL (80-94); Mean Platelet Vol. 9.4 fl (6.2-12.0); Monocyte# 0.67 X10^3/uL; Monocyte% 9.7 % (0-10); NRBC Flagged by Analyzer 0 % (0-5); Neutrophil % 47.7 % (47-70); Platelet Count 199 K/mm3 (150-450); RBC Distribution Width CV 12.9 % (11.6-14.6); RBC Distribution Width SD 42.4 fl (35.1-43.9); Red Blood Count 4.95 M/mm3 (4.6-6.2); White Blood Count 6.9 K/mm3 (4.4-11.0)
[2021-12-03 06:53] LABS: Anion Gap 5 (5-15); BUN 23 mg/dL (7-18); BUN/Creat Ratio 23.5 RATIO (10-20); Chloride 107 mmol/L (98-107); Creatinine, Serum 0.98 mg/dL (0.70-1.30); EST Glomerular Filtration Rate 80 mL/min (>60); Est Glom Filt Rate - Afr Amer 97 mL/min (>60); Estimated Creatinine Clearance 71.39 ml/min; Glucose 158 mg/dL (74-106); Potassium 3.7 mmol/L (3.5-5.1); Sodium Level 137 mmol/L (136-145)
[2021-12-03 07:02] VITALS: PULSE 47
[2021-12-03 07:10] LABS: Bedside Glucose 157 mg/dL (74-106)
[2021-12-03 09:00] VITALS: BP 143/89; PULSE 57; RESP 18; TEMP 36.6; O2SAT 97
[2021-12-03] MEDS: Enoxaparin 40 MG/0.4 ML Syringe SC (09:00)
[2021-12-03] MEDS: Clopidogrel Bisulfate 75 MG Tablet PO (09:00)
[2021-12-03] MEDS: Escitalopram Oxalate 20 MG Tablet PO (09:00)
--- NOTE | 2021-12-03 09:38 | CASEMGMT ---
SW reviewed patient's therapy notes and yesterday he walked 220'. NIKHIL spoke with Rachel in Rehab Unit and insurance will not approve patient for SNF or Rehab Unit. NIKHIL spoke with STRENGTH AND CONDITIONING COACH and patient would be fine for home. NIKHIL met with patient. Introduced self and role at [facility]. SW let patient know that his insurance will not approve him to go to the Rehab Unit or a snf as he is doing well. NIKHIL discussed home health and outpatient. Patient feels like he would be homebound for a little bit so he would like home health. SW provided a list of HH providers including quality and resource use data and consistent with the patient?s preferred geographic region, medical needs, and insurance network. NIKHIL let patient know the agencies that are highlighted in pink are the ones that take his insurance so those are his choices. NIKHIL told patient to pick a few options and someone will stop back by and get his choices. NIKHIL let patient know RN VALORIE or NIKHIL will work on making referrals. Lizette Pickett GAS DISTRIBUTION SUPERVISOR SAM
[2021-12-03 10:20] VITALS: BMI 36.5
[2021-12-03 10:54] VITALS: PULSE 55
--- NOTE | 2021-12-03 11:10 | CASEMGMT ---
NIKHIL met with patient and he said he would like [facility] ([facility]). NIKHIL let him know SW will work on referral. NIKHIL called [facility] regarding referral. They do service this area. INKHIL faxed referral to [phone]. Await response. Lizette VARGAS
[2021-12-03 12:31] LABS: Bedside Glucose 218 mg/dL (74-106)
--- NOTE | 2021-12-03 13:27 | CASEMGMT ---
NIKHIL called [facility] and they declined patient. NIKHIL spoke with patient and his next choice would be [facility]. NIKHIL called [facility] and they can accept patient. They will see patient on Friday. SW will notify patient. Plan: d/c home with [facility] PT/OT Lizette VARGAS
--- NOTE | 2021-12-03 14:12 | DCINST_ITS ---
Discharge Instructions Diet Discharge Diet: 1800 Calorie Control Diet Activity Discharge Activity: Return to Normal Activity Weight Bearing Status: Full weight bearing Follow Up Care Test Results: Test results from this visit will be discussed in further detail at your follow- up appointment, if applicable. Discharge Plan Admission Admit Date/Time: 11/30/21 13:12 Attending Provider: Neo Parker Primary Care Provider: Zonia Live Consulting Providers: Mike Phelps Instructions Additional Instructions / Restrictions: Follow-up with physical therapy as outpatient Discharge Orders/Prescriptions Prescriptions: New atorvastatin 80 mg Tablet 80 mg PO QHS Qty: 30 0RF clopidogrel 75 mg Tablet 75 mg PO DAILY Qty: 30 0RF escitalopram oxalate 20 mg Tablet 20 mg PO DAILY Qty: 30 0RF Continued metformin 500 mg tablet 500 tab PO DAILY amlodipine 5 mg tablet 5 mg PO DAILY Discontinued simvastatin 20 MG tablet 20 mg PO QHS escitalopram oxalate 10 mg tablet 10 mg PO DAILY Referrals / Follow Up: Zonia Live MD [Primary Care Provider] - Within 2 Weeks Disposition Disposition (needs filled in before D/C Order can be placed): Home Health Service
[2021-12-03 14:51] VITALS: PULSE 62
[2021-12-03 15:00] VITALS: BP 136/72; PULSE 61; RESP 18; TEMP 36.5; O2SAT 95
--- NOTE | 2021-12-03 15:25 | PHA.DC.MC ---
Pharmacy Service has performed discharge medication reconciliation and counseling for this patient. 1. ATORVASTATIN 80MG PO QHS 2. CLOPIDOGREL 75 MG PO DAILY The patient's discharge medication list was reviewed for discrepancies and discrepancies were resolved. Home Medications amlodipine 5 mg tablet 5 mg PO DAILY blood pressure 11/30/21 metformin 500 mg tablet 500 tab PO DAILY blood sugar 11/30/21 atorvastatin 80 mg tablet 80 mg PO QHS #30 tabs 12/03/21 clopidogrel 75 mg tablet 75 mg PO DAILY #30 tabs 12/03/21 escitalopram oxalate 20 mg tablet 20 mg PO DAILY #30 tabs 12/03/21 The patient was counseled on the following discharge medications and changes in medications for homegoing were reviewed. The Reason for Use, instructions for use, and potential side effects were reviewed for all new medications. The patient's questions regarding all of their medications were answered. The patient was able to verbally demonstrate an understanding of their discharge medications.
--- NOTE | 2021-12-03 18:27 | PCM.DC.SUM ---
Providers Date of Admission: 11/30/21 Date of Discharge: 12/03/21 Primary Care Physician: Dr. Zonia Live MD Reason For Visit: L CEREBELLAR CVA Diagnosis Discharge Diagnosis (1) Cerebrovascular accident (CVA) due to embolism of left cerebellar artery: Status: Acute Code(s): I63.442 - Cerebral infarction due to embolism of left cerebellar artery Plan 1. Left cerebellar ischemic stroke #2 essential hypertension #3 hyperlipidemia #4 type 2 diabetes #5 chronic anxiety/depression Medications at Discharge Home Medications amlodipine 5 mg tablet 5 mg PO DAILY blood pressure 11/30/21 metformin 500 mg tablet 500 tab PO DAILY blood sugar 11/30/21 atorvastatin 80 mg tablet 80 mg PO QHS #30 tabs 12/03/21 clopidogrel 75 mg tablet 75 mg PO DAILY #30 tabs 12/03/21 escitalopram oxalate 20 mg tablet 20 mg PO DAILY #30 tabs 12/03/21 Hospital Course Operations None Procedures 2-D Echocardiogram Summary of Care Provided Minutes Spent on Discharge: 32 Hospital Course: This 71-year-old white male was seen in the emergency room at [facility] with complaints of slurred speech, difficulty walking, and drooping lip per EMS. Stroke team was initiated, NIH score was 3, discussions were carried out with stroke neurology by telephone, CT of the brain was obtained and the images were reviewed, there appeared to be a area of ischemia on the left cerebellar area, patient was not felt to be a candidate for tPA. Baby aspirin was recommended with administration of Plavix 300 mg also. CTA of the head and neck showed no significant stenosis. Patient was admitted to PCU, NIH scores were monitored, patient underwent an MRI of the brain, and patient was seen by PT and OT. His MRI showed an acute left cerebellar stroke, echocardiogram was obtained and was unremarkable, patient's Lipitor was increased to maximal dosage, and teleneurology recommended his aspirin be discontinued and the patient be kept on Plavix. Patient did well during his hospital stay, he decided he would go home and have therapy follow-up as an outpatient. On 12/03/2021, patient was seen and examined: On examination he appeared in good health and spirits. Vital signs as documented. Skin warm and dry and without overt rashes. Neck without JVD, neck was supple, trachea midline, thyroid was normal. Lungs clear bilaterally, normal air movement was noted. Heart exam notable for regular rhythm, normal sounds and absence of murmurs, rubs or gallops. Abdomen unremarkable and without evidence of organomegaly, masses, or abdominal aortic enlargement. Bowel sounds are present, abdomen is not distended. Extremities nonedematous, no cyanosis was noted, no clubbing was noted. Neuro: Cranial nerves II through XII are grossly intact, no focal motor deficits were noted, sensation to light touch and pinprick intact, motor exam 5/5 throughout. Psych: Patient is alert and oriented x3, he does not appear anxious or depressed, he does not appear agitated. Patient was found to be stable for discharge on 12/03/2021. Weight / BMI Weight Weight: 115.5 kg Body Mass Index (BMI) 36.5 ABG / Lab / Microbiology Data Result Diagrams: 12/03/21 05:27 12/03/21 05:27 Laboratory: Laboratory Results - last 24 hr 12/02/21 21:43: POC Glucose 189 H 12/03/21 05:27: WBC 6.9, RBC 4.95, Hgb 15.0, Hct 44.6, MCV 90.1, MCH 30.3, MCHC 33.6, RDW Std Deviation 42.4, RDW Coeff of [place] 12.9, Plt Count 199, MPV 9.4, Immature Gran % (Auto) 0.400, Neut % (Auto) 47.7, Lymph % (Auto) 38.3, Morrison % (Auto) 9.7, Eos % (Auto) 3.3, Baso % (Auto) 0.6, Absolute Neuts (auto) 3.3, Absolute Lymphs (auto) 2.65, Nucleated RBC % 0 12/03/21 05:27: Sodium 137, Potassium 3.7, Chloride 107, Carbon Dioxide 25.0, Anion Gap 5, BUN 23 H, Creatinine 0.98, Estim Creat Clear Calc 71.39, Est GFR (MDRD) Af Amer 97, Est GFR (MDRD) Non-Af 80, BUN/Creatinine Ratio 23.5 H, Glucose 158 H, Calcium 9.0 12/03/21 06:17: POC Glucose 157 H 12/03/21 12:12: POC Glucose 218 H Microbiology: Microbiology 11/30/21 14:00 Nasal Secretion SARS-CoV-2 Antigen (Rapid) - Final D/C Instructions Discharge Diet: 1800 Calorie Control Diet Weight Bearing Status: Full weight bearing Meaningful Use Info Meaningful Use Diagnoses (Choose all that apply): Ischemic CVA CVA Therapy Assessed for PT,OT and/or ST?: Yes Ischemic Stroke Antithrombotic order at d/c?: Yes Reason antithrombotic not ordered: Medical Contraindication Dx of Atrial fib/flutter?: No Anticoagulant at discharge?: No Reason anticoagulant not ordered: Procedure not Indicated Statins at discharge?: Yes Primary Dx Acute Ischemic CVA?: Yes IV tPA ordered during stay?: No Reason IV t-PA not ordered: Procedure not Indicated Discharge Plan Admission Admit Date/Time: 11/30/21 13:12 Attending Provider: Neo Parker Primary Care Provider: Zonia Live Consulting Providers: Mike Phelps Instructions Additional Instructions / Restrictions: Follow-up with physical therapy as outpatient Discharge Orders/Prescriptions Prescriptions: New atorvastatin 80 mg Tablet 80 mg PO QHS Qty: 30 0RF clopidogrel 75 mg Tablet 75 mg PO DAILY Qty: 30 0RF escitalopram oxalate 20 mg Tablet 20 mg PO DAILY Qty: 30 0RF Continued metformin 500 mg tablet 500 tab PO DAILY amlodipine 5 mg tablet 5 mg PO DAILY Discontinued simvastatin 20 MG tablet 20 mg PO QHS escitalopram oxalate 10 mg tablet 10 mg PO DAILY Referrals / Follow Up: Zonia Live MD [Primary Care Provider] - Within 2 Weeks Disposition Disposition (needs filled in before D/C Order can be placed): Home Health Service Charges/Coding Visit Charges Inpatient E&M: 20124 Disch Hosp
== END 2021-12-03 15:26 | disposition home health service (06) | DRG 66 ==
LOC: ED 13:30 → PCU 13:40
PROVIDERS: Admitting Provider Family Medicine; Emergency Provider Emergency Medicine; PCP Internal Medicine; Visit Provider Internal Medicine
DX: I63.442 Cerebral infarction due to embolism of left cerebellar artery (principal); E11.9 Type 2 diabetes mellitus without complications; I65.22 Occlusion and stenosis of left carotid artery; I10 Essential (primary) hypertension; E78.5 Hyperlipidemia, unspecified; F41.9 Anxiety disorder, unspecified; R47.81 Slurred speech; R27.0 Ataxia, unspecified; R29.703 NIHSS score 3; F32.A Depression, unspecified; Z79.84 Long term (current) use of oral hypoglycemic drugs; Z79.899 Other long term (current) drug therapy; Z86.718 Personal history of other venous thrombosis and embolism; Z86.711 Personal history of pulmonary embolism
CPT/HCPCS: 36415; 70450; 70496; 70498; 70551; 71045; 80048; 80061; 82962; 84484; 85025; 85610; 85730; 87811; 92507; 92526; 92610; 93005; 93306; 94762; 97110; 97162; 97166; 97530; 97535; 97802; 99284; Q9957; Q9967; A4216; C8929; J2405

== ENCOUNTER → 2022-02-12 | Outpatient (CLI) | payer MEDICARE, SELFPAY ==
--- NOTE | 2022-02-12 13:19 | CDU_ITS ---
Reason For Study: CVA Rt. Velocities/BP Lt. Velocities/BP Prox CCA 76.8/19.2 cm/sec. Prox CCA 98.1/14.6 cm/sec. Mid CCA 91.9/20.1 cm/sec. Mid CCA 94.9/20.1 cm/sec. Dist CCA 91/21.1 cm/sec. Dist CCA 89.4/13.5 cm/sec. Prox ICA 79.1/15.2 cm/sec. Prox ICA 56.4/13.5 cm/sec. Mid ICA 68.1/17 cm/sec. Mid ICA 70.7/17.9 cm/sec. Dist ICA 80.6/24.5 cm/sec. Dist ICA 65.2/16.8 cm/sec. Rt. ICA/CCA = 0.89. Lt. ICA/CCA = 0.74. Prox ECA 154.3/20.4 cm/sec. Prox ECA 97.1/11.3 cm/sec. Rt. Vert. 24.8/12.7 cm/sec. Lt. Vert. 40/9.7 cm/sec. Right Extracranial There is heterogeneous, irregular atherosclerotic plaque noted in the right common carotid artery. There is heterogeneous, irregular atherosclerotic plaque noted in the right internal carotid artery. There is intimal thickening but no significant atherosclerotic plaque noted in the right external carotid artery. Antegrade flow is noted in the right vertebral artery. Abnormal waveform morphology noted in the right vertebral artery. Left Extracranial There is intimal thickening but no significant atherosclerotic plaque noted in the left common carotid artery. There is intimal thickening but no significant atherosclerotic plaque noted in the left internal carotid artery. There is intimal thickening but no significant atherosclerotic plaque noted in the left external carotid artery. Antegrade flow is noted in the left vertebral artery. Procedure Carotid Duplex [id number]. This is a Carotid Duplex examination using B-mode, color flow and specral Doppler. Exam performed in department. VL/Carotid Duplex Ultrasound Interpretation Summary Minimal irregular plaque at the proximal right internal carotid artery with les s than 50% stenosis Less than 50% stenosis right external carotid artery Intimal thickening at the proximal left internal carotid artery with less than 50% stenosis Less than 50% stenosis left external carotid artery Patent and antegrade vertebral arteries bilaterally Ordering Physician: Jonathan Rosenthal Referring Physician: Zonia Live Performed By: Angeles Nj RVT
== END | disposition home or self-care (01) ==
LOC: CVS 12:33
PROVIDERS: PCP Internal Medicine; Referring Provider Ophthalmology; Visit Provider Ophthalmology
DX: I65.21 Occlusion and stenosis of right carotid artery (principal); Z86.73 Personal history of transient ischemic attack (TIA), and cerebral infarction without residual deficits
CPT/HCPCS: 93880

== ENCOUNTER 2022-09-10 08:32 | Emergency (ER) | payer MEDICARE, SELFPAY ==
[2022-09-10 08:33] VITALS: BP 141/79; PULSE 67; RESP 14; TEMP 36.5; O2SAT 97; BMI 34.7
--- NOTE | 2022-09-10 08:54 | ED.VIS.GI ---
HPI HPI - GI History of Present Illness Chief Complaint: GI Bleed Informant: patient Narrative Narrative: Patient is a 72-year-old male with history of stroke and a prior episode of GI bleeding (had an endoscopy with Dr. Isaac at [facility] in July of this year which only showed healing ulcers in the stomach.). He is presenting with another episode of bright red blood per rectum. He states that for some time he has had intermittent burning abdominal pain. He states he has not now but it is quite mild. He is not on an antacid. He states yesterday he went to have a bowel movement and there was a small coin size amount of blood in his stool. This morning when he went to have another bowel movements the toilet bowl was filled with blood that was bright red. He also had blood on the toilet paper when he wiped. He denies any significant pain at his rectum. He is not aware of any history of hemorrhoids. He denies any nausea or vomiting. He denies any lightheadedness or dizziness. He is on Plavix but no other anticoagulation or antiplatelet medication. He is not on aspirin. Has a history of cholecystectomy and states that he has 3-4 loose/watery bowel movements a day which is normal for him. This is unchanged. Thinks that maybe a week ago his stool was a little darker in color but overall its been brown. No other complaints at this time. 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 [facility] Medical History Diabetes DVT (deep venous thrombosis) Hyperlipidemia Hypertension Migraines Non-smoker Prediabetes Pulmonary embolism Home Medications amlodipine 5 mg tablet 5 mg PO DAILY blood pressure 11/30/21 [History Last Taken 11/29/21] metformin 500 mg tablet 500 tab PO DAILY blood sugar 11/30/21 [History Last Taken 11/29/21] atorvastatin 80 mg tablet 80 mg PO QHS #30 tabs 12/03/21 [Rx Last Taken Unknown] clopidogrel 75 mg tablet 75 mg PO DAILY #30 tabs 12/03/21 [Rx Last Taken Unknown] escitalopram oxalate 20 mg tablet 20 mg PO DAILY #30 tabs 12/03/21 [Rx Last Taken Unknown] hydrocortisone 2.5 % topical cream with perineal applicator (Anusol-HC) 1 applic LA QHS PRN hemorrhoids #30 grams 09/10/22 [Rx Last Taken Unknown] omeprazole 40 mg capsule,delayed release 40 mg PO DAILY #30 caps 09/10/22 [Rx Last Taken Unknown] Allergy/AdvReac Type Severity Reaction Status Date / Time No Known Allergies Allergy Verified 09/10/22 08:34 Family History Other CVA (cerebral vascular accident) Diabetes Surgical History History of appendectomy History of cholecystectomy Social History Smoking Status: Never smoker ROS ROS ED Constitutional Constitutional ED: Denies chills or fever(s) Cardiovascular Cardiovascular: Denies chest pain Respiratory/Chest Respiratory/Chest: Denies cough Gastrointestinal Gastrointestinal: Reports abdominal pain and other Details: BRBPR ; Denies constipation, diarrhea, nausea or vomiting Genitourinary Genitourinary ED: Denies dysuria or hematuria Musculoskeletal Musculoskeletal: Denies arthralgias or myalgias Integumentary Denies rash Neurologic Neurologic: Denies headache(s) or weakness Hematologic/Lymphatic Hematologic/Lymphatic: Denies easy bleeding or easy bruising EXAM Physical Exam Const Vital Signs: 09/10/22 08:33 09/10/22 10:19 Temperature 97.7 F L 97.8 F Temperature Source Temporal Pulse Rate 67 78 Respiratory Rate 14 16 Blood Pressure 141/79 H 132/78 H Blood Pressure Mean 99 Pulse Ox 97 100 Oxygen Delivery Method Room Air Positive well nourished and well developed General Appearance ED: well developed and NAD; Negative for pallor HEENT Reports moist mucous membranes normocephalic and atraumatic Eyes PERRL and EOMs intact bilaterally General Eye ED: Negative for pale conjunctiva Neck supple Resp normal respiratory effort and clear to auscultation bilaterally Cardio regular rate, regular rhythm and no murmurs GI non-tender and non-distended GI Narrative: Patient has engorged hemorrhoids on rectal exam with what appears to be a bleeding internal hemorrhoid. No thrombosis of hemorrhoids appreciated. Inspection: Negative for abdominal distention Auscultation: normoactive bowel sounds Palpation: soft; Negative for tender, guarding or rigid Extremity full ROM Extremity Narrative: 2+ DP pulses General Extremety ED: Negative for edema General Extremity: Negative for edema Neuro moves all extremities and no sensory deficits noted Sensorium / Orientation: alert, oriented to person, oriented to place and oriented to time Motor Exam: Negative for general weakness Psych mental status grossly normal and thought process normal Skin no wounds General Skin Exam: Negative for jaundice or pallor MDM MDM MDM Narrative Medical decision making narrative: Patient's evaluated for bright red blood per rectum. It started last night. Vital signs are normal. Does not appear anemic. Does have some bright red blood on rectal exam with associated engorged hemorrhoids. Likely this is the cause of his bleeding however due to his age will obtain some basic lab work. Patient had a colonoscopy and EGD in July of this year which results were reviewed on [facility]. That did show a nonbleeding ulcer as well as nonbleeding hemorrhoids. Patient states by the time the endoscopy was done he was not having any symptoms. He had a similar episode in April. Work-up is largely normal. Hemoglobin is normal at 14.6. This is at his baseline as well. Does not have a leukocytosis. Normal INR. BUN/creatinine ratio relatively normal with a BUN of 21 and a creatinine of 0.92. Again this is baseline. Lower suspicion for acute GI bleed. Patient remains hemodynamically stable in the ER. Suspect this is hemorrhoidal bleeding based on physical exam. I think this patient is stable for outpatient follow-up. Given that he is not on an antacid and does have a history of prior healing ulcers will place him on a PPI as well. Will prescribe rectal steroids to help with the hemorrhoids. Counseled on return precaution. Encouraged to call Dr. Isaac today to set up follow-up. Patient verbalizes agreement and understand this plan. History & Record Review Additional record(s) reviewed:: Prior outpatient record ([facility]- EGD 2 nonbleeding superficial duodenal ulcers. Colonoscopy- nonbleeding internal hemorrhoids, 1 small polyp- resected ) Lab Data Labs: Laboratory Results - last 24 hr 09/10/22 09/10/22 09/10/22 08:55 08:55 09:16 WBC 5.9 RBC 4.85 Hgb 14.6 Hct 44.2 MCV 91.1 MCH 30.1 MCHC 33.0 RDW Std Deviation 42.9 RDW Coeff of [place] 12.9 Plt Count 189 MPV 9.1 Immature Gran % (Auto) 0.200 Neut % (Auto) 56.4 Lymph % (Auto) 30.6 [place] % (Auto) 9.2 Eos % (Auto) 2.9 Baso % (Auto) 0.7 Absolute Neuts (auto) 3.3 Absolute Lymphs (auto) 1.80 Nucleated RBC % 0 PT 13.2 INR 1.0 Sodium 141 Potassium 4.0 Chloride 108 H Carbon Dioxide 27.0 Anion Gap 6 BUN 21 H Creatinine 0.92 Estim Creat Clear Calc 72.58 Est GFR (MDRD) Af Amer 104 Est GFR (MDRD) Non-Af 86 BUN/Creatinine Ratio 22.9 H Glucose 141 H Calcium 9.3 Total Bilirubin 0.80 AST 18 ALT 33 Alkaline Phosphatase 69 Total Protein 7.3 Albumin 3.6 Globulin 3.7 Albumin/Globulin Ratio 1.0 Lipase 41 Discharge Plan Triage Chief Complaint: GI Bleed ED Provider: Ree Osei Dx/Rx/DC Orders Clinical Impression: BRBPR (bright red blood per rectum), Bleeding hemorrhoids Instructions: ED Hemorrhoids Prescriptions: New omeprazole 40 mg capsule,delayed release(DR/EC) 40 mg PO DAILY Qty: 30 0RF hydrocortisone [Anusol-HC] 2.5 % cream with perineal applicator 1 applic LA QHS PRN (Reason: hemorrhoids) Qty: 30 0RF No Action metformin 500 mg tablet 500 tab PO DAILY amlodipine 5 mg tablet 5 mg PO DAILY atorvastatin 80 mg Tablet 80 mg PO QHS Qty: 30 0RF clopidogrel 75 mg Tablet 75 mg PO DAILY Qty: 30 0RF escitalopram oxalate 20 mg Tablet 20 mg PO DAILY Qty: 30 0RF Primary Care Provider: Zonia Live Referrals: Zonia Live MD [Primary Care Provider] - Darek Isaac MD [Med Staff - Active Staff] - 3-5 Days if not improving Disposition Disposition: Home, Self Care Discharge Date/Time: 09/10/22 10:32
[2022-09-10 09:09] LABS: Absolute Neutrophil Count 3.3 X10^3/uL (2.0-7.7); Basophil# 0.04 X10^3/uL; Basophil% 0.7 % (0-1); Eosinophil# 0.17 X10^3/uL; Eosinophils% 2.9 % (0-5); Hematocrit 44.2 % (40-54); Hemoglobin 14.6 g/dL (13.0-16.5); Lymphocyte % 30.6 % (19-41); Mean Corpuscular Hgb 30.1 pg (27.0-32.0); Mean Corpuscular Volume 91.1 fL (80-94); Mean Platelet Vol. 9.1 fl (6.2-12.0); Monocyte# 0.54 X10^3/uL; Monocyte% 9.2 % (0-10); NRBC Flagged by Analyzer 0 % (0-5); Neutrophil # 3.33 X10^3/uL (2.7-7.7); Neutrophil % 56.4 % (47-70); Platelet Count 189 K/mm3 (150-450); RBC Distribution Width CV 12.9 % (11.6-14.6); RBC Distribution Width SD 42.9 fl (35.1-43.9); Red Blood Count 4.85 M/mm3 (4.6-6.2); White Blood Count 5.9 K/mm3 (4.4-11.0)
[2022-09-10 09:26] LABS: AST(SGOT) 18 U/L (15-37); Alanine Aminotransfer ALT/SGPT 33 U/L (16-61); Albumin, Serum 3.6 g/dL (3.2-5.0); Alkaline Phosphatase 69 U/L (45-117); Anion Gap 6 (5-15); BUN 21 mg/dL (7-18); BUN/Creat Ratio 22.9 RATIO (10-20); Calcium,Total 9.3 mg/dL (8.5-10.1); Chloride 108 mmol/L (98-107); Creatinine, Serum 0.92 mg/dL (0.70-1.30); EST Glomerular Filtration Rate 86 mL/min (>60); Est Glom Filt Rate - Afr Amer 104 mL/min (>60); Estimated Creatinine Clearance 72.58 ml/min; Globulin 3.7 g/dL (2.2-4.2); Glucose 141 mg/dL (74-106); Lipase 41 U/L (13-75); Protein, Total 7.3 g/dL (6.4-8.2); Sodium Level 141 mmol/L (136-145)
[2022-09-10 09:34] LABS: Prothrombin Time (Protime)PT. 13.2 SECONDS (11.7-14.9)
[2022-09-10 10:19] VITALS: BP 132/78; PULSE 78; RESP 16; TEMP 36.6; O2SAT 100
== END 2022-09-10 10:32 | disposition home or self-care (01) ==
PROVIDERS: Emergency Provider Emergency Medicine; PCP Internal Medicine; Visit Provider Emergency Medicine
DX: K64.8 Other hemorrhoids (principal); E11.9 Type 2 diabetes mellitus without complications; K92.2 Gastrointestinal hemorrhage, unspecified; E78.5 Hyperlipidemia, unspecified; I10 Essential (primary) hypertension; Z79.02 Long term (current) use of antithrombotics/antiplatelets; Z79.84 Long term (current) use of oral hypoglycemic drugs; Z79.899 Other long term (current) drug therapy; Z86.73 Personal history of transient ischemic attack (TIA), and cerebral infarction without residual deficits; Z86.718 Personal history of other venous thrombosis and embolism; Z86.711 Personal history of pulmonary embolism
CPT/HCPCS: 80053; 83690; 85025; 85610; 99283

== ENCOUNTER 2023-09-06 06:39 | Observation (INO) | payer MEDICARE, SELFPAY ==
[2023-09-06] VITALS (10 sets, daily range): BP systolic 127–165; BP diastolic 73–88; PULSE 61–86; RESP 12–18; TEMP 36.3–36.7; O2SAT 93–98; BMI 35.3; BMI 34.4
--- NOTE | 2023-09-06 06:47 | CT_ITS ---
STUDY: CT BRAIN WITHOUT CONTRAST REASON FOR EXAM: Male, 73 years old. Neuro deficit. Stroke alert. RADIATION DOSAGE (If Supplied By Facility): CTDIvol = ( 45 ) mGy, DLP = ( 796 ) mGycm TECHNIQUE: Transaxial CT imaging of the brain was performed without administration of intravenous contrast material. Individualized dose optimization techniques were used for this CT. COMPARISON: No relevant prior comparison study available FINDINGS: PARENCHYMA: There is an old left cerebellar infarct and an old left frontal infarct with encephalomalacia. There is no acute bleed or infarct. There are normal white matter tracts. VENTRICLES: There is no hydrocephalus. MASTOID AIR CELLS AND PARANASAL SINUSES: The visualized paranasal sinuses are clear. The mastoid air cells are clear. BONES: There is no skull fracture. SOFT TISSUES: The visualized soft tissues are within normal limits. CT/STROKE Brain/Head without Cont IMPRESSION: No acute intracranial abnormality. Old left cerebellar and left frontal infarcts with encephalomalacia. N.B. : The above Results were Read Back by Nawaf Liriano MD to MD Kayla, and understanding confirmed on 09/06/2023 07:07:38 (ET). Electronically Signed: Nawaf Liriano MD at 7:09 EDT ,
--- NOTE | 2023-09-06 06:47 | EKG12_ITS ---
Test Reason : STROKE TEAM Blood Pressure : / mmHG Vent. Rate : 062 BPM Atrial Rate : 062 BPM P-R Int : 160 ms QRS Dur : 130 ms QT Int : 456 ms P-R-T Axes : -23 -44 018 degrees QTc Int : 462 ms Normal sinus rhythm Left axis deviation Right bundle branch block Abnormal ECG Confirmed by BEN VILLAGRAN, ASHLEY ([id number]), news editor ROSALINE ARANGO ([id number]) on 09/08/2023 9:41:01 AM Referred By: Confirmed By:ASHLEY CONTRERAS MD
--- NOTE | 2023-09-06 06:48 | EDS_ITS ---
HPI History of Present Illness Chief Complaint: Stroke Alert Detail of Chief Complaint: Right arm weakness Informant: patient and spouse/S.O. Narrative Narrative: Patient presents with right arm weakness that he noticed this morning when he woke up. Patient states he went to bed around 10:00 last evening and was normal. He has remote history of prior stroke. Not on blood thinners. Denies falls or head injuries. He denies headache. Denies difficulty with speech or vision. 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 [facility] Medical History Diabetes DVT (deep venous thrombosis) Hyperlipidemia Hypertension Migraines Non-smoker Prediabetes Pulmonary embolism Home Medications amlodipine 5 mg tablet 5 mg PO DAILY blood pressure 11/30/21 [History Last Taken 11/29/21] atorvastatin 80 mg tablet 80 mg PO QHS #30 tabs 12/03/21 [Rx Last Taken Unknown] clopidogrel 75 mg tablet 75 mg PO DAILY #30 tabs 12/03/21 [Rx Last Taken Unknown] escitalopram oxalate 20 mg tablet 20 mg PO DAILY #30 tabs 12/03/21 [Rx Last Taken Unknown] hydrocortisone 2.5 % topical cream with perineal applicator (Anusol-HC) 1 applic [place] QHS PRN hemorrhoids #30 grams 09/10/22 [Rx Last Taken Unknown] omeprazole 40 mg capsule,delayed release 40 mg PO DAILY #30 caps 09/10/22 [Rx Last Taken Unknown] dorzolamide 22.3 mg-timolol 6.8 mg/mL eye drops 1 drp ophthalmic (eye) BID 09/06/23 [History Last Taken Unknown] metformin 500 mg tablet,extended release 24 hr 500 mg PO DAILY 09/06/23 [History Last Taken Unknown] pantoprazole 40 mg tablet,delayed release 40 mg PO DAILY 09/06/23 [History Last Taken Unknown] semaglutide 1 mg/dose (4 mg/3 mL) subcutaneous pen injector (Ozempic) 1 mg subcut QWEEK 09/06/23 [History Last Taken Unknown] Allergy/AdvReac Type Severity Reaction Status Date / Time No Known Allergies Allergy Verified 09/10/22 08:34 Family History Other CVA (cerebral vascular accident) Diabetes Surgical History History of appendectomy History of cholecystectomy Social History Smoking Status: Never smoker ROS ROS ED Review of Systems ROS Unobtainable: other Constitutional Constitutional ED: Reports lethargy; Denies chills, fever(s), sweats or weight loss Eyes Eyes: Denies blurry vision, change in vision or diplopia ENT ENT ED: Denies rhinorrhea or sore throat Cardiovascular Cardiovascular: Denies chest pain, orthopnea or racing heartbeat Respiratory/Chest Respiratory/Chest: Denies cough, dyspnea, dyspnea on exertion, orthopnea or sputum Gastrointestinal Gastrointestinal: Denies abdominal pain, diarrhea, nausea or vomiting Genitourinary Genitourinary ED: Denies dysuria, hematuria or urinary frequency Musculoskeletal Musculoskeletal: Reports other Details: Right arm weakness ; Denies arthralgias, back pain, myalgias or neck pain Integumentary Denies abscess, Abrasions or rash Neurologic Neurologic: Denies headache(s) or weakness Psychiatric Psychiatric: Denies anxiety, depression or suicidal thoughts Endocrine Endocrinology: Denies polydipsia, polyphagia or polyuria Hematologic/Lymphatic Hematologic/Lymphatic: Denies easy bleeding, easy bruising or lymphadenopathy Allergic/Immunologic Allergic/Immunologic ED: Denies mouth swelling, tongue swelling or urticaria EXAM Physical Exam Const Vital Signs: 09/06/23 06:41 Temperature 97.9 F Temperature Source Temporal Pulse Rate 65 Respiratory Rate 12 Blood Pressure 165/88 H Blood Pressure Mean 113 Pulse Ox 97 Oxygen Delivery Method Room Air Positive well nourished and well developed General Appearance ED: well developed and NAD HEENT Reports TM's clear and moist mucous membranes normocephalic and atraumatic; Negative for trauma or tenderness Tympanic Membrane ED: Yes TM's clear Eyes PERRL and EOMs intact bilaterally General Eye ED: Negative for pale conjunctiva or scleral icterus Neck no lymphadenopathy, supple and no JVD General: Negative for tenderness Chest Wall inspection of chest normal and palpation of chest normal Chest: Negative for tenderness Resp normal respiratory effort and clear to auscultation bilaterally Effort and Inspection: Negative for respiratory distress or pain with movement Auscultation: Negative for rhonchi, wheezes or diminished lung sounds Cardio regular rate, regular rhythm, S1 normal heart sound, S2 normal heart sound and no murmurs Peripheral Pulses: pulses 2+ throughout GI normal to inspection, nondistended, normoactive bowel sounds, soft to palpation, non-tender, non-distended and no masses Back/Spine no CVA tenderness and no thoracic nor lumbar tenderness Extremity normal to inspection General Extremety ED: Negative for edema General Extremity: Negative for edema Neuro oriented x3, CN's II-XII intact bilaterally, no sensory deficits noted and gait normal Neuro Narrative: NIH stroke scale of a 1 with some slight ataxia noted with the right hand. Sensorium / Orientation: awake, alert, oriented to person, oriented to place and oriented to time Motor Exam: strength 5/5 throughout and strength abnormal Psych mental status grossly normal Skin no rashes or lesions noted and no wounds MDM MDM MDM Narrative Medical decision making narrative: Patient presented with right arm weakness that he awoke with this morning. Initial NIH was 1. Patient will not be a thrombolytic candidate. Discussed case with [facility] neurologist. IV line established and stroke team was called initially. CT of the brain showed old stroke involving left side of the brain and cerebellum. No new findings. No bleeding. CTA of head and neck was negative. Lab workup unremarkable. Case discussed with hospitalist will evaluate patient for admission. Lab Data Attestation: I reviewed the patient's lab results. EKG Initial EKG: Attestation: I personally reviewed and interpreted this EKG as follows: Comments: Sinus rhythm with rate of 62 bpm with right bundle branch block Discharge Plan Dx/Rx/DC Orders Clinical Impression: Acute CVA (cerebrovascular accident), Weakness of right arm, Hypertension Disposition Disposition: Acute Care Hospital [facility]
--- NOTE | 2023-09-06 06:48 | CT_ITS ---
STUDY: CTA HEAD AND NECK WITH CONTRAST REASON FOR EXAM: Male, 73 years old patient with acute neurologic deficit. Acute stroke suspected. RADIATION DOSAGE (If Supplied By Facility): CTDIvol = ( 22.64 ) mGy, DLP = ( 847.18 ) mGycm TECHNIQUE: CT angiography was performed with a multi-detector CT scanner. Data acquisition was obtained from the skull base through the vertex following intravenous administration of 100 mL of Isovue-370. MIP images were reconstructed from the axial data set. Post-processing of the angiographic images was performed, with multiplanar reformation and 3D reconstruction. Individualized dose optimization techniques were used for this CT. COMPARISON: No relevant priors. FINDINGS: Normal bilateral petrous carotid arteries. There is elongation and tortuosity of the right cavernous carotid artery without a demonstrated hemodynamically significant stenosis. There is elongation and tortuosity of the left cavernous carotid artery without a demonstrated hemodynamically significant stenosis. There is mild associated atherosclerotic calcification of the cavernous internal carotid arteries. Normal right A1 segments of the anterior cerebral artery. Normal left A1 segments of the anterior cerebral artery. Normal intact anterior communicating artery (ACOM). Normal bilateral A2 segments of the anterior cerebral arteries. Normal right M1 and M2 segments of the middle cerebral arteries, with a normal M1 bifurcation. Normal left M1 and M2 segments of the middle cerebral arteries, with a normal M1 bifurcation. There is non-visualization of the right posterior communicating artery (PCOM). There is non-visualization of the left posterior communicating artery (PCOM). Normal bilateral vertebral arteries. Normal basilar artery with a normal basilar bifurcation. The visualized bilateral superior cerebellar (SCA) arteries are normal. Normal bilateral P1, P2 and visualized P3 segments of the posterior cerebral arteries. There is no demonstrated aneurysm of the [place]. There is no demonstrated abnormality of the visualized brain. AORTIC ARCH: Normal visualized aortic arch. Normal origins of the brachiocephalic, left common carotid, and left subclavian arteries. RIGHT CAROTID ARTERIES: Normal right common carotid artery (CCA). There is mild atherosclerotic plaque formation with minimal narrowing of the right carotid bulb. Normal origin of the right internal carotid (ICA) artery without a hemodynamically significant stenosis. There is atherosclerotic tortuous elongation of the cervical portion of the right internal carotid artery. Normal origin of the right external carotid artery (ECA). LEFT CAROTID ARTERIES: Normal left common carotid artery (CCA). There is mild atherosclerotic plaque formation with minimal narrowing of the left carotid bulb. Normal origin of the left internal carotid (ICA) artery without a hemodynamically significant stenosis. There is atherosclerotic tortuous elongation of the cervical portion of the left internal carotid artery. Normal origin of the left external carotid artery (ECA). VERTEBRAL ARTERIES: Normal bilateral vertebral arteries. NECK TRAUMA: There are prominent bronchovascular markings in both lungs. The thyroid has a grossly normal appearance. Visualized parotid and submandibular glands have a grossly normal appearance. Nasopharynx, oropharynx, hypopharynx and larynx have a grossly normal appearance. CT/STROKE CTA Head AND Neck W/Con IMPRESSION: No CTA evidence for hemodynamically significant stenosis, thrombosis, dissection or aneurysm. N.B. : The above Results were Read Back by Daxa Su MD to Barbara Verdugo MD, and understanding confirmed on 09/06/2023 07:28:33 (ET). Electronically Signed: Daxa Su MD at 7:31 EDT ,
[2023-09-06 07:00] LABS: Absolute Lymphocyte Count 2.19 X10^3/uL (0.83-4.51); Absolute Neutrophil Count 3.4 X10^3/uL (2.0-7.7); Basophil# 0.05 X10^3/uL; Basophil% 0.8 % (0-1); Eosinophil# 0.22 X10^3/uL; Eosinophils% 3.4 % (0-5); Hematocrit 44.6 % (40-54); Hemoglobin 14.8 g/dL (13.0-16.5); Lymphocyte # 2.19 X10^3/ul (0.83-4.51); Lymphocyte % 33.7 % (19-41); Mean Corp Hgb Conc 33.2 g/dL (32-36); Mean Corpuscular Volume 90.3 fL (80-94); Mean Platelet Vol. 9.1 fl (6.2-12.0); Monocyte# 0.58 X10^3/uL; Monocyte% 8.9 % (0-10); NRBC Flagged by Analyzer 0 % (0-5); Neutrophil # 3.43 X10^3/uL (2.7-7.7); Neutrophil % 52.9 % (47-70); Platelet Count 204 K/mm3 (150-450); RBC Distribution Width CV 13.5 % (11.6-14.6); RBC Distribution Width SD 44.3 fl (35.1-43.9); Red Blood Count 4.94 M/mm3 (4.6-6.2); White Blood Count 6.5 K/mm3 (4.4-11.0)
[2023-09-06 07:08] LABS: Bedside Glucose 133 mg/dL (74-106)
--- NOTE | 2023-09-06 07:10 | RAD_ITS ---
STUDY: X-RAY CHEST REASON FOR EXAM: Male, 73 years old. Altered mental status TECHNIQUE: Frontal view of the chest COMPARISON: None. FINDINGS: The lungs are clear. There are no pleural effusions. There is no pneumothorax. The heart is normal in size. There are old, healed right-sided rib fractures noted. RAD/Chest 1 View IMPRESSION: No acute thoracic pathology. Electronically Signed: Nawaf Liriano MD at 8:40 EDT ,
[2023-09-06 07:16] LABS: Prothrombin Time (Protime)PT. 12.8 SECONDS (11.7-14.9)
[2023-09-06 07:17] LABS: Partial Thromboplast Time 24.5 Seconds (24.1-36.2)
[2023-09-06 07:19] LABS: Anion Gap 2 (5-15); BUN 15 mg/dL (7-18); BUN/Creat Ratio 14.9 RATIO (10-20); Calcium,Total 9.3 mg/dL (8.5-10.1); Chloride 110 mmol/L (98-107); Creatinine, Serum 1.01 mg/dL (0.70-1.30); EST Glomerular Filtration Rate 77 mL/min (>60); Est Glom Filt Rate - Afr Amer 93 mL/min (>60); Estimated Creatinine Clearance 81.48 ml/min; Glucose 144 mg/dL (74-106); Potassium 3.9 mmol/L (3.5-5.1); Sodium Level 141 mmol/L (136-145); Troponin-I HS 15 pg/mL (3.0-78.0)
--- NOTE | 2023-09-06 07:41 | ECHOD_ITS ---
Reason For Study: TIA/CVA Procedure This was a 2D Doppler, Color Flow transthoracic echocardiogram. Exam performed portable in patient room. Left Ventricle Normal LV size. The estimated ejection fraction is 70 %. No evidence for diastolic dysfunction. No regional wall motion abnormalities noted. Right Ventricle Normal RV size. Normal systolic function. Atria The left and right atria are normal. No doppler evidence for ASD. Mitral Valve There is no mitral valve stenosis. No mitral valve insufficiency. Tricuspid Valve There is no tricuspid stenosis. Unable to estimate RV systolic pressure due to inadequate jet, pulmonary artery pressure probably normal. Aortic Valve Trisinus/trileaflet aortic valve. Aortic sclerosis, no stenosis. There is no aortic stenosis. No aortic valve insufficiency. Pulmonic Valve There is no pulmonic valvular stenosis. No pulmonic valve insufficiency. Great Vessels Normal aortic root. Pericardium/Pleural No pericardial effusion. MMode/2D Measurements & Calculations LVIDd: 5.5 cm IVSd: 1.2 cm Ao root diam: 3.5 cm LVIDs: 3.7 cm LVPWd: 1.2 cm FS: 32.2 % LAV(MOD-bp): 44.9 ml LVAd ap4: 19.2 cm2 LVAd ap2: 24.6 cm2 LAV(MOD-bp) Indexed: 19.7 ml/m2 LVLd ap4: 6.5 cm LVLd ap2: 7.4 cm LAV(MOD-sp2): 45.5 ml EDV(MOD-sp4): 49.3 ml EDV(MOD-sp2): 64.9 ml LAV(MOD-sp4): 41.0 ml EDV(sp4-el): 48.2 ml EDV(sp2-el): 69.8 ml LVAs ap4: 10.5 cm2 LVAs ap2: 13.4 cm2 LVLs ap4: 5.3 cm LVLs ap2: 5.9 cm ESV(MOD-sp4): 18.8 ml ESV(MOD-sp2): 27.1 ml ESV(sp4-el): 17.7 ml ESV(sp2-el): 25.7 ml EF(MOD-sp4): 61.9 % EF(MOD-sp2): 58.2 % EF(sp4-el): 63.3 % SV(MOD-sp4): 30.5 ml SV(MOD-sp2): 37.8 ml SV(sp4-el): 30.5 ml LA dimension(2D): 4.5 cm LA A4 area: 16.1 cm2 RA A4 area: 17.4 cm2 TAPSE: 2.6 cm Time Measurements MV dec time: 0.20 sec Doppler Measurements & Calculations MV E max tay: 84.9 cm/sec Lat Peak E' Tay: 8.5 cm/sec Med Peak E' Tay: 8.9 cm/sec MV A max tay: 105.6 cm/sec E/E' lat: 10.0 E/E' med: 9.5 MV E/A: 0.80 MV V2 max: 95.6 cm/sec MV P1/2t max tay: 79.7 cm/sec Ao V2 max: 103.0 cm/sec MV max P.7 mmHg MV P1/2t: 74.4 msec Ao max P.2 mmHg MV V2 mean: 54.6 cm/sec MV dec slope: 313.7 cm/sec2 Ao V2 mean: 74.5 cm/sec MV mean P.4 mmHg Ao mean P.4 mmHg MV V2 VTI: 24.3 cm MVA(P1/2t): 3.0 cm2 Ao V2 VTI: 23.9 cm AV (velocity ratio): 0.86 LV V1 max: 86.9 cm/sec PA V2 max: 100.8 cm/sec LV V1 max P.0 mmHg PA V2 mean: 72.7 cm/sec LV V1 mean P.5 mmHg LV V1 mean: 58.9 cm/sec LV V1 VTI: 20.6 cm ECHO/Echo Complete Interpretation Summary The estimated ejection fraction is 70 %. No evidence for diastolic dysfunction. Ordering Physician: Kylie Moura Referring Physician: Zonia Live Performed By: Michela Valladares, HOLLEYCS, RVT
--- NOTE | 2023-09-06 07:41 | MRI_ITS ---
We are attempting to reach an attending provider to discuss findings. An addendum with communication details will be sent when the communication is complete. EXAM: MR HEAD WITHOUT INTRAVENOUS CONTRAST CLINICAL INDICATION: stroke TECHNIQUE: Multiplanar and multisequence MR images of the brain were obtained without intravenous contrast. COMPARISON: CT brain 09/06/2023, MR Head dated 11/30/2021 FINDINGS: BRAIN AND EXTRA-AXIAL SPACES: Cortical regions of restricted diffusion within the left parietal lobe consistent with acute ischemia. Chronic left cerebellar and left frontal lobe infarcts again noted. No hemorrhage or mass effect. Ventricles are normal. SELLA: Normal. Normal sella turcica, pituitary gland, infundibular stalk, optic chiasm and hypothalamus. AUDITORY SYSTEM: Normal. The internal auditory canals are patent. BONES/JOINTS: Intact calvarium. SINUSES: Unremarkable as visualized. Clear. MASTOID AIR CELLS: Unremarkable as visualized. Clear. ORBITS: Unremarkable as visualized. Both globes, extraocular muscles, optic nerves and retrobulbar fat appear unremarkable. VASCULATURE: Unremarkable as visualized. Normal flow voids in the major intracranial circulation. MRI/Brain without Contrast IMPRESSION: 1. Acute left parietal peripheral cortical ischemia. 2. Old left cerebellar and frontal infarcts. Electronically Signed: Franklin Noe MD at 13:45 EDT ,
--- NOTE | 2023-09-06 07:43 | PCM.HP.STD ---
HPI - General General Date of Admission: 09/06/23 Date of Service: 09/06/23 Chief Complaint: Acute left arm weakness HPI Narrative CHRISTA ESTRADA, is a 73 M who presented to the emergency department at [facility] on 09/06/2023 when he woke up this morning after going to bed at 10 PM normal with right-sided weakness and paresthesias. Patient states he had previously been on aspirin and Plavix but was recently taken off his aspirin. He remains on Plavix and has been compliant. Family is there and confirms no facial droop or speech difficulties and he denies any lower extremity involvement. He indicated he when he got up he tried to pickle cutter his shirt and he dropped it several times because his right arm would not work correctly. He does have a history of previous stroke and it looks like he was here in 2021 at which time was diagnosed. He has no history of arrhythmia. And has no other complaints at this time. Vital signs on presentation showed temperature of 97.9, heart rate 65, blood pressure was 165/88, respiratory was 12 and oxygen saturations were 97% on room air. His CBC was completely unremarkable. Coags were normal. Chemistry panel was unremarkable other than hyperglycemia with a blood glucose of 144. His troponin was 15. CT of the brain showed no acute intracranial abnormality but did demonstrate old cerebellar and frontal infarcts on the left side with concomitant encephalomalacia. CTA of the head and neck demonstrated no evidence of hemodynamically significant stenosis, thrombosis, dissection, or aneurysm. EKG was normal sinus rhythm with no ST-T waves concerning for acute ischemia. Chest x-ray showed no acute processes. Case was discussed with stroke neurologist and they recommended admission for further workup. [facility] Medical History Diabetes DVT (deep venous thrombosis) History of stroke Hyperlipidemia Hypertension Migraines Non-smoker Prediabetes Pulmonary embolism Home Medications amlodipine 5 mg tablet 5 mg PO DAILY blood pressure 11/30/21 [History Last Taken 09/05/23] atorvastatin 80 mg tablet 80 mg PO QHS #30 tabs 12/03/21 [Rx Last Taken 09/05/23] clopidogrel 75 mg tablet 75 mg PO DAILY #30 tabs 12/03/21 [Rx Last Taken 09/05/23] escitalopram oxalate 20 mg tablet 20 mg PO DAILY #30 tabs 12/03/21 [Rx Last Taken 09/05/23] dorzolamide 22.3 mg-timolol 6.8 mg/mL eye drops 1 drp ophthalmic (eye) BID 09/06/23 [History Last Taken 09/05/23] metformin 500 mg tablet,extended release 24 hr 500 mg PO DAILY 09/06/23 [History Last Taken 09/05/23] semaglutide 1 mg/dose (4 mg/3 mL) subcutaneous pen injector (Ozempic) 1 mg subcut QWEEK 09/06/23 [History Last Taken 09/03/23] Allergy/AdvReac Type Severity Reaction Status Date / Time No Known Allergies Allergy Verified 09/10/22 08:34 Family History Sister Diabetes Brother Diabetes Surgical History History of appendectomy History of cholecystectomy Social History (Updated 09/06/23 @ 14:[address] Kylie Moura DO) household members: spouse housing: house Smoking Status: Never smoker alcohol intake: current alcohol intake frequency: holidays/special occasions only substance use type: does not use ROS Constitutional Constitutional: Denies anorexia, change in weight, chills, fatigue, fever(s), malaise, night sweats, weakness or other Eyes Eyes: Denies blurry vision, change in eye color, change in vision, discharge from eye(s), double vision, erythema, eye pain, loss of vision or other ENT HEENT: Denies abnormal hearing, dysphagia, ear pain, epistaxis, headache(s), hearing loss, nasal congestion, nasal discharge, post nasal drip, sinus pressure, sore throat or other Cardiovascular Cardiovascular: Denies chest pain, claudication, dyspnea on exertion, edema, lightheadedness, orthopnea, palpitations, paroxysmal nocturnal dyspnea, rapid heart rate, syncope or other Respiratory/Chest Respiratory/Chest: Denies cough, dyspnea, excessive phlegm production, hemoptysis, productive cough, shortness of breath at rest, shortness of breath with exertion, wheezing or other Gastrointestinal Gastrointestinal: Denies abdominal pain, coffee ground emesis, constipation, diarrhea, dyspepsia, hematemesis, hematochezia, loose stools, melena, nausea, vomiting or other Genitourinary Genitourinary: Denies burning urination, difficulty urinating, dysuria, hematuria, nocturia, urinary frequency, urinary hesitancy, urinary incontinence, urinary urgency or other Musculoskeletal Musculoskeletal: Denies arthralgias, back pain, joint pain, joint stiffness, joint swelling, myalgias, neck pain or other Neurologic Neurologic: Reports focal weakness and paresthesias; Denies abnormal gait, abnormal speech, confusion, disequilibrium, dizziness, headache(s), numbness, seizure-like activity, seizures, syncope, tingling, tremor(s) or other Psychiatric Psychiatric: Denies anxiety, depression, homicidal ideation, suicidal ideation or other Endocrine Endocrinology: Denies change in body appearance, cold intolerance, excessive sweating, heat intolerance, polydipsia, polyuria or other Hematologic/Lymphatic Hematologic/Lymphatic: Denies anemia, easy bleeding, easy bruising, lymphadenopathy or other Allergic/Immunologic Allergic/Immunologic: Denies rhinitis, hives, eczemia, asthma or other Vital Signs Vital Signs Vital Signs: 09/06/23 06:41 09/06/23 06:47 09/06/23 06:47 Temperature 97.9 F Temperature Source Temporal Pulse Rate 65 67 Respiratory Rate 12 16 Blood Pressure 165/88 H 145/84 H Blood Pressure Mean 113 104 Pulse Ox 97 98 Oxygen Delivery Method Room Air Room Air Room Air 09/06/23 07:17 09/06/23 07:30 Temperature 97.6 F L 97.5 F L Temperature Source Temporal Oral Pulse Rate 64 86 Respiratory Rate 16 15 Blood Pressure 140/79 H 140/80 H Blood Pressure Mean 99 100 Pulse Ox 93 94 Oxygen Delivery Method Room Air Weight Weight: 111.6 kg Body Mass Index (BMI) 35.3 Physical Exam Const alert, oriented x3, no apparent distress and well nourished; Negative for average body habitus Constitutional Narrative: Obese, older, white male, sitting up in bed, family at bedside, patient appears comfortable and nontoxic General Appearance: cooperative HEENT normocephalic, head/scalp atraumatic and moist oral mucous membranes; Negative for hearing grossly normal bilaterally HEENT Narrative: Mallampati 3, no thrush, dentition is poor, mild hearing deficit Eyes PERRL, EOMs intact bilaterally and conjunctivae normal Eyes Narrative: No scleral icterus Neck no lymphadenopathy, supple and no carotid bruits Neck Narrative: Trachea midline, no thyroid enlargement Resp normal respiratory effort, no retractions, no use of accessory muscles and clear to auscultation bilaterally Auscultation: Negative for rales, rhonchi or wheezes Cardio regular rate, regular rhythm, S1 normal heart sound, S2 normal heart sound, no murmurs, no rub, no gallops and no clicks GI normal to inspection, nondistended, normoactive bowel sounds, soft to palpation and non-tender Extremity no clubbing, cyanosis or edema Extremity Narrative: Pedal and radial pulses are 2+ Skin no wounds, skin turgor normal, no jaundice, no petechiae and no mottling Neuro oriented x3, CN's II-XII intact bilaterally, moves all extremities and No no focal motor deficits Neuro Narrative: Mild pronator drift on the right with no drop towards the bed, lower extremities within normal limits, no significant sensory deficits Speech: speech normal Psych affect normal Psych Narrative: Very pleasant, interacts appropriately Results Lab / Micro Data 09/06/23 06:50 09/06/23 06:50 Labs: Laboratory Results - last 24 hr 09/06/23 06:48: POC Glucose 133 H 09/06/23 06:50: WBC 6.5, RBC 4.94, Hgb 14.8, Hct 44.6, MCV 90.3, MCH 30.0, MCHC 33.2, RDW Std Deviation 44.3 H, RDW Coeff of [place] 13.5, Plt Count 204, MPV 9.1, Immature Gran % (Auto) 0.300, Neut % (Auto) 52.9, Lymph % (Auto) 33.7, Craig % (Auto) 8.9, Eos % (Auto) 3.4, Baso % (Auto) 0.8, Absolute Neuts (auto) 3.4, Absolute Lymphs (auto) 2.19, Nucleated RBC % 0, PT 12.8, INR 1.0, APTT 24.5, Sodium 141, Potassium 3.9, Chloride 110 H, Carbon Dioxide 29.0, Anion Gap 2 L, BUN 15, Creatinine 1.01, Estim Creat Clear Calc 81.48, Est GFR (MDRD) Af Amer 93, Est GFR (MDRD) Non-Af 77, BUN/Creatinine Ratio 14.9, Glucose 144 H, Calcium 9.3, Troponin I High Sens 15 Imaging Radiology Impression Brain CT 09/06/23 06:47 IMPRESSION: No acute intracranial abnormality. Old left cerebellar and left frontal infarcts with encephalomalacia. N.B. : The above Results were Read Back by Nawaf Liriano MD to MD Kayla, and understanding confirmed on 09/06/2023 07:07:38 (ET). Electronically Signed: Naawf Liriano MD at 7:09 EDT , ADDENDUM: 09/06/23 0715 IMPRESSION: No acute intracranial abnormality. Old left cerebellar and left frontal infarcts with encephalomalacia. N.B. : The above Results were Read Back by Nawaf Liriano MD to MD Kayla, and understanding confirmed on 09/06/2023 07:07:38 (ET). Electronically Signed: Nawaf Liriano MD at 7:09 EDT , Head/Neck CTA 09/06/23 06:48 IMPRESSION: No CTA evidence for hemodynamically significant stenosis, thrombosis, dissection or aneurysm. N.B. : The above Results were Read Back by Daxa Su MD to Barbara Verdugo MD, and understanding confirmed on 09/06/2023 07:28:33 (ET). Electronically Signed: Daxa Su MD at 7:31 EDT , ADDENDUM: 09/06/23 0738 IMPRESSION: No CTA evidence for hemodynamically significant stenosis, thrombosis, dissection or aneurysm. N.B. : The above Results were Read Back by Daxa Su MD to Barbara Verdugo MD, and understanding confirmed on 09/06/2023 07:28:33 (ET). Electronically Signed: Daxa Su MD at 7:31 EDT Reading Location ID and State: [facility] / [place] , Service support , Assessment & Plan Assessment/Plan (1) Weakness of right arm: (2) Arm paresthesia, right: PLAN: Plan Right arm weakness and paresthesias -Was present this morning when he woke up -CT negative for bleed -CTA negative for any significant carotid artery or vertebral artery stenosis/occlusion with no LVO was noted -He noted his arm felt like it was almost and not there -Previous history of stroke and was not all that long ago taken off aspirin and maintained on Plavix -Continue high intensity dose statin -Check lipids -Check hemoglobin A1c -Restart aspirin 81 mg daily and continue Plavix -Hold home antihypertensives and allow for some permissive hypertension with concern for acute stroke -Check MRI -Check echocardiogram with bubble study -NIH per stroke order set -PT/OT/KIER HAND if needed -Will need outpatient event monitor at discharge -Neurology consultation History of stroke -See above -Continue home Plavix -CT shows previous infarcts in left cerebellar and left frontal territory with noted encephalomalacia Hypertension/hyperlipidemia -Check lipid panel -Continue home atorvastatin -Hold antihypertensives with as needed utilization to allow for permissive hypertension Carotid artery stenosis -CTA did not show any significant stenosis -Previous carotid artery duplex shows less than 50% bilateral external carotid artery stenosis with patent and antegrade vertebral arteries -Study done in 2021 Glaucoma -Continue home eyedrops DM-2 -Hold home metformin and semaglutide -Check hemoglobin A1c -SSI -Cardiac/carb controlled diet History of remote DVT/PE -No longer anticoagulated Obesity -BMI 34.4 -Complicates treatment, prognosis, outcomes -Recommend weight loss DVT prophylaxis -Enoxaparin 40 subcu daily CODE STATUS -Full code per discussion at admission Charges/Coding Visit Charges Inpatient E&M: 43918 Init Hosp L2
[2023-09-06] MEDS: Enoxaparin 40 MG/0.4 ML Syringe SC (09:21)
[2023-09-06] MEDS: Clopidogrel Bisulfate 75 MG Tablet PO (09:21)
[2023-09-06] MEDS: Aspirin 81 MG TAB.CHEW PO (09:25)
[2023-09-06 09:51] LABS: Bedside Glucose 134 mg/dL (74-106)
--- NOTE | 2023-09-06 10:55 | PN.NEURO_ITS ---
Objective Data Objective Data Vital Signs: Vital Signs Temp Pulse Resp BP Pulse Ox O2 Del Method 97.3 F L 62 16 155/78 H 96 Room Air 09/06/23 08:35 09/06/23 08:35 09/06/23 08:35 09/06/23 08:35 09/06/23 08:35 09/06/23 10:00 Oxygen Delivery Method Room Air Weight: 108.9 kg Body Mass Index (BMI) 34.4 Lab / Micro Data 09/06/23 06:50 09/06/23 06:50 Labs: Laboratory Results - last 24 hr 09/06/23 06:48: POC Glucose 133 H 09/06/23 06:50: WBC 6.5, RBC 4.94, Hgb 14.8, Hct 44.6, MCV 90.3, MCH 30.0, MCHC 33.2, RDW Std Deviation 44.3 H, RDW Coeff of [place] 13.5, Plt Count 204, MPV 9.1, Immature Gran % (Auto) 0.300, Neut % (Auto) 52.9, Lymph % (Auto) 33.7, [place] % (Auto) 8.9, Eos % (Auto) 3.4, Baso % (Auto) 0.8, Absolute Neuts (auto) 3.4, Absolute Lymphs (auto) 2.19, Nucleated RBC % 0, PT 12.8, INR 1.0, APTT 24.5, Sodium 141, Potassium 3.9, Chloride 110 H, Carbon Dioxide 29.0, Anion Gap 2 L, BUN 15, Creatinine 1.01, Estim Creat Clear Calc 81.48, Est GFR (MDRD) Af Amer 93, Est GFR (MDRD) Non-Af 77, BUN/Creatinine Ratio 14.9, Glucose 144 H, Hemoglobin A1c 6.0 H, Calcium 9.3, Troponin I High Sens 15 09/06/23 09:19: POC Glucose 134 H Radiography Diagnostic Testing: Radiology Impression Brain CT 09/06/23 06:47 IMPRESSION: No acute intracranial abnormality. Old left cerebellar and left frontal infarcts with encephalomalacia. N.B. : The above Results were Read Back by Nawaf Liriano MD to MD Kayla, and understanding confirmed on 09/06/2023 07:07:38 (ET). Electronically Signed: Nawaf Liriano MD at 7:09 EDT , ADDENDUM: 09/06/23 0715 IMPRESSION: No acute intracranial abnormality. Old left cerebellar and left frontal infarcts with encephalomalacia. N.B. : The above Results were Read Back by Nawaf Liriano MD to MD Kayla, and understanding confirmed on 09/06/2023 07:07:38 (ET). Electronically Signed: Nawaf Liriano MD at 7:09 EDT , Head/Neck CTA 09/06/23 06:48 IMPRESSION: No CTA evidence for hemodynamically significant stenosis, thrombosis, dissection or aneurysm. N.B. : The above Results were Read Back by Daxa Su MD to Barbara Verdugo MD, and understanding confirmed on 09/06/2023 07:28:33 (ET). Electronically Signed: Daxa Su MD at 7:31 EDT , ADDENDUM: 09/06/23 0738 IMPRESSION: No CTA evidence for hemodynamically significant stenosis, thrombosis, dissection or aneurysm. N.B. : The above Results were Read Back by Daxa Su MD to Barbara Verdugo MD, and understanding confirmed on 09/06/2023 07:28:33 (ET). Electronically Signed: Daxa Su MD at 7:31 EDT , Chest X-Ray 09/06/23 07:10 IMPRESSION: No acute thoracic pathology. Electronically Signed: Nawaf Liriano MD at 8:40 EDT , Physical Exam Neuro Neuro Narrative: Neurological examination: General: The patient appears nutritionally appropriate, well-groomed, and appears comfortable in no acute distress. Mental Status: The patient?s mental status was normal including orientation. Language was intact. Cranial nerves: Visual nelson full, extra-ocular motion was intact. Face motion symmetric. There was no dysarthria. Motor: Normal strength and tone in all four extremities. No pronator drift. Bilateral FFM symmetric. Sensation: Decreased sensory in right hand. Coordination: Bilateral finger to nose was normal. There was no dysmetria. Gait: deferred Subject: Neurology Subjective CHRISTA ESTRADA is a 73 year old RH M with history of prior left cerebellar ischemic stroke 11/2021 without residual deficits on Plavix, DM, HTN, and HL who awoke 09/06/23 with right arm weakness/numbness (LKN10p prior to bed). He presented to [facility]. CT brain was negative. CTA head/neck negative. Telestroke consulted, no NIHSS documented. He was admitted to medicine. This morning he reports he has persistent symptoms, right arm is not normal. Assessment and Plan: Stroke Assessment/Plan CHRISTA ESTRADA is a 73 year old RH M with history of prior left cerebellar ischemic stroke 11/2021 without residual deficits on Plavix, DM, HTN, HL, and prior DVT/PE who awoke 09/06/23 with right arm weakness/numbness (LKN 10p prior to bed). He presented to [facility]. CT brain was negative for acute changes, show old left frontal and left cerebellar infarct. CTA head/neck negative. Telestroke consulted, no NIHSS documented. He was admitted to medicine. This morning he reports he has persistent symptoms, right arm is not normal. He is on plavix/lipitor 80. Neurological examination shows right arm sensory, NIHSS-1 (sens-1). ASSESSMENT/PLAN: Suspected acute ischemic stroke 1) Stroke work-up recommended including MRI brain, LDL, HgbA1c, TTE, PT, OT consults. 2) Continue daily anti-platelet medication (home plavix) and vascular risk factor modification. On lipitor 80. 3) DVT prophylaxis with SCDs and lovenox SQ daily. Messaged Primary team with recommendations.
[2023-09-06 12:46] LABS: Bedside Glucose 177 mg/dL (74-106)
[2023-09-06 16:55] LABS: Bedside Glucose 112 mg/dL (74-106)
[2023-09-06] MEDS: Dorzolamide HCL/Timolol 10 ml Bottle 1 DRP OPHTHALMIC (20:27)
[2023-09-06] MEDS: Atorvastatin Calcium 80 MG Tablet PO (20:27)
[2023-09-07 00:30] VITALS: BP 147/64; PULSE 64; RESP 18; TEMP 36.8; O2SAT 95
[2023-09-07 04:30] VITALS: BP 132/72; PULSE 63; RESP 16; TEMP 36.7; O2SAT 94
[2023-09-07 05:18] VITALS: BMI 34.1
[2023-09-07 06:16] LABS: Absolute Lymphocyte Count 1.87 X10^3/uL (0.83-4.51); Basophil# 0.04 X10^3/uL; Basophil% 0.6 % (0-1); Eosinophil# 0.15 X10^3/uL; Eosinophils% 2.2 % (0-5); Hematocrit 42.9 % (40-54); Hemoglobin 14.1 g/dL (13.0-16.5); Lymphocyte # 1.87 X10^3/ul (0.83-4.51); Lymphocyte % 27.5 % (19-41); Mean Corp Hgb Conc 32.9 g/dL (32-36); Mean Corpuscular Hgb 29.3 pg (27.0-32.0); Mean Corpuscular Volume 89.2 fL (80-94); Mean Platelet Vol. 9.3 fl (6.2-12.0); Monocyte# 0.69 X10^3/uL; Monocyte% 10.2 % (0-10); NRBC Flagged by Analyzer 0 % (0-5); Neutrophil # 4.02 X10^3/uL (2.7-7.7); Neutrophil % 59.2 % (47-70); Platelet Count 190 K/mm3 (150-450); RBC Distribution Width CV 13.5 % (11.6-14.6); Red Blood Count 4.81 M/mm3 (4.6-6.2); White Blood Count 6.8 K/mm3 (4.4-11.0)
[2023-09-07 07:08] LABS: Bedside Glucose 134 mg/dL (74-106)
[2023-09-07 07:12] LABS: AST(SGOT) 17 U/L (15-37); Alanine Aminotransfer ALT/SGPT 32 U/L (16-61); Albumin, Serum 3.4 g/dL (3.2-5.0); Alkaline Phosphatase 59 U/L (45-117); Anion Gap 3 (5-15); BUN 16 mg/dL (7-18); BUN/Creat Ratio 17.1 RATIO (10-20); Chloride 109 mmol/L (98-107); Cholesterol 157 mg/dL (200); Creatinine, Serum 0.94 mg/dL (0.70-1.30); EST Glomerular Filtration Rate 84 mL/min (>60); Est Glom Filt Rate - Afr Amer 102 mL/min (>60); Estimated Creatinine Clearance 86.13 ml/min; Globulin 3.5 g/dL (2.2-4.2); Glucose 140 mg/dL (74-106); High Density Lipoprotein 46 mg/dL; Magnesium 1.9 mg/dL (1.6-2.6); Phosphorus 3.7 mg/dL (2.5-4.9); Potassium 3.8 mmol/L (3.5-5.1); Protein, Total 6.9 g/dL (6.4-8.2); Sodium Level 140 mmol/L (136-145); Thyroid Stim Hormone (TSH) 2.06 uIU/mL (0.358-3.74); Triglycerides 120 mg/dL; Very Low Density Lipoprotein 24 mg/dL (5-40)
[2023-09-07 07:45] VITALS: BMI 34.1
[2023-09-07 08:15] VITALS: O2SAT 92
[2023-09-07 08:30] VITALS: BP 136/81; PULSE 67; RESP 18; TEMP 36.2; O2SAT 94
[2023-09-07] MEDS: Aspirin 81 MG TAB.CHEW PO (08:48)
[2023-09-07] MEDS: Escitalopram Oxalate 20 MG Tablet PO (08:48)
[2023-09-07] MEDS: Dorzolamide HCL/Timolol 10 ml Bottle 1 DRP OPHTHALMIC (08:49)
[2023-09-07] MEDS: Enoxaparin 40 MG/0.4 ML Syringe SC (08:50)
[2023-09-07] MEDS: Clopidogrel Bisulfate 75 MG Tablet PO (08:50)
[2023-09-07 09:00] VITALS: BMI 34.1
--- NOTE | 2023-09-07 09:58 | STROKE.PNOTE ---
Objective Data Objective Data Vital Signs: Vital Signs Temp Pulse Resp BP Pulse Ox O2 Del Method 97.2 F L 67 18 136/81 H 94 Room Air 09/07/23 08:30 09/07/23 08:30 09/07/23 08:30 09/07/23 08:30 09/07/23 08:30 09/07/23 08:30 Oxygen Delivery Method Room Air Weight: 108 kg Body Mass Index (BMI) 34.1 Intake & Output: Intake and Output for Last 24 Hours 09/05/23 09/06/23 09/07/23 23:59 23:59 23:59 Intake Total 960 / 960 120 / 120 Balance 960 / 960 120 / 120 Lab / Micro Data 09/07/23 05:38 09/07/23 05:38 Labs: Laboratory Results - last 24 hr 09/06/23 12:28: POC Glucose 177 H 09/06/23 16:35: POC Glucose 112 H 09/07/23 05:38: WBC 6.8, RBC 4.81, Hgb 14.1, Hct 42.9, MCV 89.2, MCH 29.3, MCHC 32.9, RDW Std Deviation 44.0 H, RDW Coeff of [place] 13.5, Plt Count 190, MPV 9.3, Immature Gran % (Auto) 0.300, Neut % (Auto) 59.2, Lymph % (Auto) 27.5, [place] % (Auto) 10.2 H, Eos % (Auto) 2.2, Baso % (Auto) 0.6, Absolute Neuts (auto) 4.0, Absolute Lymphs (auto) 1.87, Nucleated RBC % 0, Sodium 140, Potassium 3.8, Chloride 109 H, Carbon Dioxide 28.0, Anion Gap 3 L, BUN 16, Creatinine 0.94, Estim Creat Clear Calc 86.13, Est GFR (MDRD) Af Amer 102, Est GFR (MDRD) Non-Af 84, BUN/Creatinine Ratio 17.1, Glucose 140 H, Calcium 9.0, Phosphorus 3.7, Magnesium 1.9, Total Bilirubin 0.90, AST 17, ALT 32, Alkaline Phosphatase 59, Total Protein 6.9, Albumin 3.4, Globulin 3.5, Albumin/Globulin Ratio 1.0, Triglycerides 120, Cholesterol 157, LDL Cholesterol 87, VLDL Cholesterol 24, HDL Cholesterol 46, TSH 2.06 09/07/23 06:37: POC Glucose 134 H Radiography Diagnostic Testing: Radiology Impression Brain MRI 09/06/23 07:41 IMPRESSION: 1. Acute left parietal peripheral cortical ischemia. 2. Old left cerebellar and frontal infarcts. Electronically Signed: Franklin Noe MD at 13:45 EDT , ADDENDUM: 09/06/23 1356 IMPRESSION: 1. Acute left parietal peripheral cortical ischemia. 2. Old left cerebellar and frontal infarcts. N.B. : The above Results were Read Back by Franklin Noe MD to Ann Vinson RN, and understanding confirmed on 09/06/2023 13:49:09 (ET). Electronically Signed: Franklin Noe MD at 13:45 EDT , Echocardiogram 09/06/23 07:41 Interpretation Summary The estimated ejection fraction is 70 %. No evidence for diastolic dysfunction. Ordering Physician: Kylie Moura Referring Physician: Zonia Live Performed By: Michela Valladares, RDCS, RVT Physical Exam Neuro Neuro Narrative: Neurological examination: General: The patient appears nutritionally appropriate, well-groomed, and appears comfortable in no acute distress. Mental Status: The patient?s mental status was normal including orientation. Language was intact. Cranial nerves: Visual nelson full, extra-ocular motion was intact. Face motion symmetric. There was no dysarthria. Motor: Normal strength and tone in all four extremities. No pronator drift. Bilateral FFM symmetric. Sensation: symmetric sensory Coordination: Bilateral finger to nose was normal. There was no dysmetria. Gait: deferred Subject: Neurology Subjective Patient reports he feels back to baseline this morning, right arm feels normal. MRI brain shows an acute small left parietal infarct. TTE EF 70%. LDL 87. HgbA1c 6.0. EEG Results Procedure Details EEG Procedure Details: CHRISTA ESTRADA is a 73 year old M with a past medical history of , who presents for evaluation of Electroencephalogram on DATE at TIME Assessment and Plan: Stroke Assessment/Plan CHRISTA ESTRADA is a 73 year old RH M with history of prior left cerebellar ischemic stroke 11/2021 without residual deficits on Plavix, DM, HTN, HL, and prior DVT/PE who awoke 09/06/23 with right arm weakness/numbness (LKN 10p prior to bed). He presented to [facility]. CT brain was negative for acute changes, show old left frontal and left cerebellar infarct. CTA head/neck negative. This morning he reports he feels back to baseline. He is on plavix/lipitor 80. Neurological examination nonfocal, NIHSS-0 ASSESSMENT/PLAN: Acute left parietal ischemic stroke 1) Inpatient Stroke work-up is completed. Recommend outpatient 30 day event monitor to rule out paroxysmal atrial fibrillation. 2) Continue daily anti-platelet medication (home plavix) and vascular risk factor modification. On lipitor 80. 3) Follow-up in stroke neurology clinic Messaged Primary team with recommendations.
--- NOTE | 2023-09-07 10:35 | PCM.DC.SUM ---
Providers Date of Admission: 09/06/23 Date of Discharge: 09/07/23 Primary Care Physician: Dr. Zonia Live MD Consultations 09/06/23 08:11 Consult: Tele-Neurology Routine Consulting Provider: [facility] Reason for Consult: Acute Ischemic Stroke/TIA EMERGENT Consult: No MD Notified: Yes Date Notified: 09/06/23 Time Notified: 08:18 Method of Notification: Answering Service Nursing Unit Staff Notify [facility] of Tele-Neurology Consult: Yes Reason For Visit: RUE WEAKNESS/ATAXIA Diagnosis Discharge Diagnosis (1) Weakness of right arm: Status: Acute Code(s): R29.898 - Other symptoms and signs involving the musculoskeletal system (2) Arm paresthesia, right: Status: Acute Code(s): R20.2 - Paresthesia of skin Medications at Discharge Home Medications amlodipine 5 mg tablet 5 mg PO DAILY blood pressure 11/30/21 clopidogrel 75 mg tablet 75 mg PO DAILY #30 tabs 12/03/21 escitalopram oxalate 20 mg tablet 20 mg PO DAILY #30 tabs 12/03/21 dorzolamide 22.3 mg-timolol 6.8 mg/mL eye drops 1 drp ophthalmic (eye) BID 09/06/23 metformin 500 mg tablet,extended release 24 hr 500 mg PO DAILY 09/06/23 semaglutide 1 mg/dose (4 mg/3 mL) subcutaneous pen injector (Ozempic) 1 mg subcut QWEEK 09/06/23 aspirin 81 mg chewable tablet 81 mg PO BREAKFAST #0 tabs 09/07/23 rosuvastatin 40 mg tablet 40 mg PO DAILY #30 tabs 09/07/23 Hospital Course Operations None Procedures 2-D Echocardiogram, EKG and - (CT brain/CTA head and neck/MRI brain) Summary of Care Provided Minutes Spent on Discharge: 37 Hospital Course: CHRISTA ESTRADA, is a 73 M who presented to the emergency department at [facility] on 09/06/2023 when he woke up this morning after going to bed at 10 PM normal with right-sided weakness and paresthesias. Patient states he had previously been on aspirin and Plavix but was recently taken off his aspirin. He remains on Plavix and has been compliant. Family is there and confirms no facial droop or speech difficulties and he denies any lower extremity involvement. He indicated he when he got up he tried to picking tech his shirt and he dropped it several times because his right arm would not work correctly. He does have a history of previous stroke and it looks like he was here in 2021 at which time was diagnosed. He has no history of arrhythmia. And has no other complaints at this time. Vital signs on presentation showed temperature of 97.9, heart rate 65, blood pressure was 165/88, respiratory was 12 and oxygen saturations were 97% on room air. His CBC was completely unremarkable. Coags were normal. Chemistry panel was unremarkable other than hyperglycemia with a blood glucose of 144. His troponin was 15. CT of the brain showed no acute intracranial abnormality but did demonstrate old cerebellar and frontal infarcts on the left side with concomitant encephalomalacia. CTA of the head and neck demonstrated no evidence of hemodynamically significant stenosis, thrombosis, dissection, or aneurysm. EKG was normal sinus rhythm with no ST-T waves concerning for acute ischemia. Chest x-ray showed no acute processes. Case was discussed with stroke neurologist and they recommended admission for further workup. He was admitted to the telemetry floor and maintained on his high intensity dose statin with Lipitor 80 mg daily, started on aspirin, and his Plavix was continued. His antihypertensive was held to allow for some permissive hypertension. An MRI was obtained on the same day of admission which demonstrated old left cerebellar and frontal infarcts with a new acute left parietal peripheral cortical infarct. Echocardiogram showed an EF of 70% with no evidence of diastolic dysfunction. No valvular abnormalities were noted. His hemoglobin A1c was 6.0 indicating good glycemic control with his home metformin. His cholesterol was obtained with a total cholesterol of 157/LDL 87/HDL 46/triglycerides were 120. His TSH was within normal limits. He was evaluated by neurology and they recommended continuing him on dual antiplatelet therapy at discharge, obtaining an event monitor for 30 days, and having him follow-up as an outpatient with his control manager. Given the fact that his LDL was still greater than 70 despite maximal therapy with Lipitor we did transition him to rosuvastatin 40 mg daily and he will need a follow-up cholesterol panel in the next 3 to 6 months to reevaluate the effectiveness of the medication change. His amlodipine was restarted at discharge. New occasions at discharge were reinitiation of the aspirin and transition of the rosuvastatin. Prescription for the rosuvastatin was sent to local pharmacy prior to discharge. Patient was discharged home in stable condition on 09/07/2023. I have asked him to follow-up with his established neurologist within the next month as schedule allows and his PCP within the next week. He was already experiencing improvement of his right upper extremity weakness/paresthesias within 12 hours of admission. At discharge he was not quite back to baseline but function was improving significantly and he was able to eat using his right hand. Discharge diagnoses: New left parietal peripheral cortical infarct History of stroke [id number] with hemoglobin A1c of 6.0 Hyperlipidemia Hypertension History of pulmonary embolus History of left lower extremity DVT Obesity Physical Exam Const alert, oriented x3, no apparent distress, no limitations, healthy appearing and well nourished; Negative for average body habitus Constitutional Narrative: Obese, older, white male, sitting up in bed, is at bedside, patient appears comfortable and nontoxic General Appearance: cooperative, comfortable, well kempt and well developed Orientation / Consciousness: awake, oriented to person, oriented to place and oriented to time Exam Limitations: no limitations Nutritional Appearance: obese HEENT normocephalic, head/scalp atraumatic and moist oral mucous membranes; Negative for hearing grossly normal bilaterally HEENT Narrative: Mallampati 3, no thrush, dentition is poor with several missing teeth Eyes PERRL, EOMs intact bilaterally and conjunctivae normal Eyes Narrative: No scleral icterus Neck no lymphadenopathy, supple and no carotid bruits Neck Narrative: Trachea midline, no thyroid enlargement Resp normal respiratory effort, no retractions, no use of accessory muscles and clear to auscultation bilaterally Auscultation: Negative for rales, rhonchi or wheezes Cardio regular rate, regular rhythm, S1 normal heart sound, S2 normal heart sound, no murmurs, no rub, no gallops and no clicks GI normal to inspection, nondistended, normoactive bowel sounds, soft to palpation and non-tender Extremity no clubbing, cyanosis or edema Extremity Narrative: Pedal and radial pulses are 2+ Skin no wounds, skin turgor normal, no jaundice, no petechiae and no mottling Neuro oriented x3, CN's II-XII intact bilaterally, moves all extremities and No no focal motor deficits Neuro Narrative: Very minimal right pronator drift with slight decrease in medical office receptionist strength on the right but no other significant abnormalities noted, sensation is normal throughout Speech: speech normal Psych affect normal Psych Narrative: Very pleasant, interacts appropriately Weight / BMI Weight Weight: 108 kg Body Mass Index (BMI) 34.1 ABG / Lab / Microbiology Data 09/07/23 05:38 09/07/23 05:38 Laboratory: Laboratory Results - last 24 hr 09/06/23 12:28: POC Glucose 177 H 09/06/23 16:35: POC Glucose 112 H 09/07/23 05:38: WBC 6.8, RBC 4.81, Hgb 14.1, Hct 42.9, MCV 89.2, MCH 29.3, MCHC 32.9, RDW Std Deviation 44.0 H, RDW Coeff of [place] 13.5, Plt Count 190, MPV 9.3, Immature Gran % (Auto) 0.300, Neut % (Auto) 59.2, Lymph % (Auto) 27.5, [place] % (Auto) 10.2 H, Eos % (Auto) 2.2, Baso % (Auto) 0.6, Absolute Neuts (auto) 4.0, Absolute Lymphs (auto) 1.87, Nucleated RBC % 0, Sodium 140, Potassium 3.8, Chloride 109 H, Carbon Dioxide 28.0, Anion Gap 3 L, BUN 16, Creatinine 0.94, Estim Creat Clear Calc 86.13, Est GFR (MDRD) Af Amer 102, Est GFR (MDRD) Non-Af 84, BUN/Creatinine Ratio 17.1, Glucose 140 H, Calcium 9.0, Phosphorus 3.7, Magnesium 1.9, Total Bilirubin 0.90, AST 17, ALT 32, Alkaline Phosphatase 59, Total Protein 6.9, Albumin 3.4, Globulin 3.5, Albumin/Globulin Ratio 1.0, Triglycerides 120, Cholesterol 157, LDL Cholesterol 87, VLDL Cholesterol 24, HDL Cholesterol 46, TSH 2.06 09/07/23 06:37: POC Glucose 134 H Radiography Diagnostic Testing: Radiology Impression Brain MRI 09/06/23 07:41 IMPRESSION: 1. Acute left parietal peripheral cortical ischemia. 2. Old left cerebellar and frontal infarcts. Electronically Signed: Franklin Noe MD at 13:45 EDT , ADDENDUM: 09/06/23 1356 IMPRESSION: 1. Acute left parietal peripheral cortical ischemia. 2. Old left cerebellar and frontal infarcts. N.B. : The above Results were Read Back by Franklin Noe MD to Ann Vinson RN, and understanding confirmed on 09/06/2023 13:49:09 (ET). Electronically Signed: Franklin Noe MD at 13:45 EDT , Echocardiogram 09/06/23 07:41 Interpretation Summary The estimated ejection fraction is 70 %. No evidence for diastolic dysfunction. Ordering Physician: Kylie Moura Referring Physician: Zonia Live Performed By: Michela Valladares, CONNER, RVT D/C Instructions Discharge Diet: Low fat / Low cholesterol and 1800 Calorie Control Diet Discharge Activity: Return to Normal Activity Meaningful Use Info Meaningful Use Meaningful Use Diagnoses (Choose all that apply): Ischemic CVA CVA Therapy Assessed for PT,OT and/or ST?: Yes Ischemic Stroke Antithrombotic order at d/c?: Yes Dx of Atrial fib/flutter?: No Anticoagulant at discharge?: No Reason anticoagulant not ordered: Treatment not Indicated Statin Dosing Therapy Reference: STATIN DOSE THERAPY REFERENCE: * Patients > 75 years receive moderate or high dose statin therapy. * Patients 75 years or YOUNGER should receive HIGH intensity statin dose unless contraindicated. You will be required to document reason for non-treatment if statin daily dose does not meet guidelines. HIGH DOSE STATIN THERAPY DAILY Atorvastatin > than or = to 40 mg Rosuvastatin > than or = to 20 mg Amlodipine + Atorvastatin > than or = to 2.5/40 mg Ezetimibe + Simvastatin 10/80 mg Simvastatin 80mg Statins at discharge?: Yes If patient is 75 or younger, pt will be discharged on HIGH intensity statin.: Yes Primary Dx Acute Ischemic CVA?: Yes IV thrombolytic ordered during stay?: No Reason IV thrombolytic not ordered: Procedure not Indicated Discharge Plan Admission Admit Date/Time: 09/06/23 07:36 Primary Reason for Your Visit: Right arm paresthesias and weakness Attending Provider: Kylie Moura Primary Care Provider: Zonia Live Consulting Providers: Brice Sanchez; Juliana Fonseca; Elisa English; Maye Matute; Smita Melendez; Karl Lucio; Krystin Mcdaniels; Oscar Asencio; Cuong Wong; Gem Nye; Madhu Ryan; Angelique Hernández; Cora Rodríguez; Lito Blanco; Shon Edge; Sanam Underwood; Fadi Haywood; Marina Moura; Maribell Calderon Instructions Additional Instructions / Restrictions: 1. You were found to have a new stroke in the left parietal peripheral cortical area. Please follow-up with your neurologist within the next 30 days if able. Continue Plavix and restart aspirin. 2. I have ordered an event monitor which is a heart monitor and we have discussed previously. This will assess for any signs of atrial fibrillation which could increase your risk for stroke. Management would change if this was found. This will be sent to your house and instructions well company the packaging. 3. Your LDL which is your bad cholesterol was 87 and goal is 70. You are already on maximal dose of Lipitor. This was discontinued and you were transition to high-dose rosuvastatin (Crestor) to see if we could get better control of your cholesterol. Discharge Orders/Prescriptions Prescriptions: New rosuvastatin 40 mg tablet 40 mg PO DAILY Qty: 30 2RF aspirin 81 mg Tablet,Chewable 81 mg PO BREAKFAST Qty: 0 0RF Continued amlodipine 5 mg tablet 5 mg PO DAILY clopidogrel 75 mg Tablet 75 mg PO DAILY Qty: 30 0RF escitalopram oxalate 20 mg Tablet 20 mg PO DAILY Qty: 30 0RF dorzolamide-timolol 22.3-6.8 mg/mL drops 1 p ophthalmic (eye) BID Rx Instructions: both eyes metformin 500 mg tablet extended release 24 hr 500 mg PO DAILY Ozempic 1 mg/dose (4 mg/3 mL) pen injector 1 mg subcut QWEEK Discontinued atorvastatin 80 mg Tablet 80 mg PO QHS Qty: 30 0RF Other Ambulatory Orders: 30 Day Event Recorder Preventi (Urgent) Timeframe: 1 Day Facility: [facility] - Location: Cardiovascular Services Ordered By: Dr. Kylie Moura Referrals / Follow Up: Zonia Live MD [Primary Care Provider] - Within 1 Week Disposition Disposition (needs filled in before D/C Order can be placed): Home, Self Care Charges/Coding Visit Charges Inpatient E&M: 10778 Disch Hosp >30min
[2023-09-07 11:56] LABS: Bedside Glucose 170 mg/dL (74-106)
[2023-09-07 12:21] VITALS: BP 116/72; PULSE 64; RESP 18; TEMP 36.6; O2SAT 97
== END 2023-09-07 10:40 | disposition home health service (06) ==
LOC: ED 07:39 → PCU 07:56
PROVIDERS: Admitting Provider Internal Medicine; Emergency Provider Emergency Medicine; PCP Internal Medicine; Visit Provider Internal Medicine
DX: I63.9 Cerebral infarction, unspecified (principal); E11.65 Type 2 diabetes mellitus with hyperglycemia; Z79.84 Long term (current) use of oral hypoglycemic drugs; I10 Essential (primary) hypertension; E66.9 Obesity, unspecified; Z79.02 Long term (current) use of antithrombotics/antiplatelets; R27.0 Ataxia, unspecified; E78.5 Hyperlipidemia, unspecified; R29.898 Other symptoms and signs involving the musculoskeletal system; Z79.899 Other long term (current) drug therapy; R20.2 Paresthesia of skin; Z86.711 Personal history of pulmonary embolism; Z86.718 Personal history of other venous thrombosis and embolism; Z68.34 Body mass index [BMI] 34.0-34.9, adult
CPT/HCPCS: 36415; 70450; 70496; 70498; 70551; 71045; 80048; 80053; 80061; 82962; 83036; 83735; 84100; 84443; 84484; 85025; 85610; 85730; 93005; 93306; 94668; 94762; 96372; 97162; 97165; 97802; 99221; 99252; 99285; Q9957; Q9967; A4216; G0378; G0463